=== PATIENT | female | born 1960 | race Caucasian/White ===

== ENCOUNTER 2018-02-19 14:08 | Inpatient (IN) ==
[2018-02-19] MEDS ORDERED: Vancomycin 1,750 MG in 0.9 % Sodium Chloride 250 ML IVPB ONE (18:53)
[2018-02-19] MEDS ORDERED: Clindamycin 600 MG/50 ML 600 MG/50 ML IV.SOLN IVPB ONE (19:00)
[2018-02-19] MEDS ORDERED: *HR* FentaNYL (PF) 100 MCG/2 ML VIAL IVP ONE (19:55)
[2018-02-19] MEDS ORDERED: Ondansetron 4 MG/2 ML VIAL IVP PRN (19:55)
[2018-02-19] MEDS: 0.9 % Sodium Chloride 1,000 ML IVC SCH ×2 (20:01→21:57)
--- NOTE | 2018-02-19 20:07 | Emergency Department Note ---
Disposition Clinical Impression: Generalized weakness, Frequent falls, Cellulitis of left anterior lower leg Disposition: Still a Patient Condition: Fair Referrals: Bob Roberto MD [Primary Care Provider] - Time of Disposition: 21:17 Fall HPI - General Chief Complaint: ED Fall Stated Complaint: Fall Time Seen by Provider: 02/19/18 18:26 Source: patient Nursing Notes Reviewed: Yes Vital Signs Reviewed: Yes - History of Present Illness HPI Narrative: Patient is a 57-year-old female who complains of a ground-level fall that happened early today at 0200 hrs. Patient states that while she was shaving her legs was sitting on the side of the tub she fell into the top. Patient states she was unable to move for 9 hours. Patient states she was rescued by her nephew who drove her to the hospital because of weakness. Patient complains of pain to the left lower extremity below the knee which also has an area of possible cellulitis. This is noticed by the patient's sister who is at bedside. Patient's sister states that she had fallen on 2 other occasions over the past 3 days, and she is concerned that something is very wrong because she is also getting progressively weak. Patient complains of dysuria for the past 2 weeks of burning in urination and noticed blood on her underwear. Patient denies any rectal bleeding and had a normal bowel movement 1 day ago. Patient has history of diabetes, with peripheral neuropathy in both lower extremities. She denies any fevers chills. When asked about her falls on 2 other occasions patient says that her legs suddenly gave way underneath her. - Related Data Home Medications Medication Instructions Recorded Confirmed Aspirin [Adult Low Dose Aspirin EC] 81 mg PO DAILY 01/11/16 02/19/18 Atorvastatin Calcium [Lipitor] 20 mg PO DAILY 01/11/16 02/19/18 FLUoxetine HCl [PROzac] 20 mg PO DAILY 01/11/16 02/19/18 Gabapentin [Neurontin] 300 mg PO BID 01/11/16 02/19/18 Insulin ASPART [Novolog] 15 unit SQ TID 01/11/16 02/19/18 Insulin Glargine,Hum.rec.anlog 36 unit SQ QAM 01/11/16 02/19/18 [Lantus Solostar] Lisinopril [Zestril] 20 mg PO DAILY 01/11/16 02/19/18 Metformin HCl [Glucophage] 1,000 mg PO BID 01/11/16 02/19/18 Oxybutynin Chloride [Ditropan Xl] 20 mg PO HS 01/11/16 02/19/18 Furosemide [Lasix] 20 mg PO DAILY 02/19/18 02/19/18 Gabapentin [Neurontin] 600 mg PO HS 02/19/18 02/19/18 Iron Ps Cmplx/Vit B12/FA 1 cap PO DAILY 02/19/18 02/19/18 [Poly-Iron 150 Forte Capsule] Vit/Iron Fumarate/FA 1 tab PO DAILY 02/19/18 02/19/18 [ Tablet] Previous Rx's Medication Instructions Recorded Meloxicam 7.5 mg PO DAILY #20 tablet 03/26/17 Allergies Allergy/AdvReac Type Severity Reaction Status Date / Time tetanus immune globulin Allergy Hives Verified 02/19/18 19:38 liraglutide [From Victoza] AdvReac Severe Nausea Verified 02/19/18 19:38 All systems ED: reviewed and negative except as stated. Review of Systems: As Per HPI Constitutional: Reports: weakness. Denies: fever, chills Cardiovascular: Denies: chest pain Respiratory: Reports: dyspnea. Denies: cough Gastrointestinal: Reports: nausea. Denies: abdominal pain, vomiting, diarrhea Genitourinary: Reports: urgency, dysuria Neurological: Reports: weakness. Denies: headache Fall PMH - Past Medical History Medical history: Reports: COPD, diabetes, hyperlipidemia Surgical history: Reports: cholecystectomy, orthopedic, other Psychiatric history: Reports: no psych history - Social History Smoking Status: Current every day smoker Alcohol use: Reports: none Drug use: Reports: none Physical Exam Vital Signs Temperature 98.0 F 02/19/18 14:14 Pulse Rate 80 02/19/18 14:14 Respiratory Rate 18 02/19/18 14:14 Blood Pressure 93/61 02/19/18 14:14 O2 Sat by Pulse Oximetry 97 02/19/18 14:14 Temperature 98.0 F 02/19/18 14:24 Pulse Rate 84 02/19/18 19:01 Respiratory Rate 18 02/19/18 14:24 Blood Pressure 157/78 02/19/18 19:01 O2 Sat by Pulse Oximetry 98 02/19/18 19:52 Oxygen Delivery Oxygen Delivery Room Air CONSTITUTIONAL: [id number]; well-nourished; A&O X 3, in no apparent distress. GCS of 15. Patient is morbidly obese with a BMI of 42. Patient weighs 111 kg vital signs show patient is mildly hypotensive at 93/61. patient is afebrile, pulse rate 80, respirations 18, 97% O2 sat on room air. Patient is nontoxic-appearing. HEAD: Normocephalic; atraumatic EYES: PERRL, no scleral icterus NOSE: The nose is normal in appearance without rhinorrhea NECK: No JVD or distended neck veins RESP: Normal chest excursion with respiration; breath sounds clear and equal bilaterally; no wheezes, rhonchi, or rales CARD: Regular rhythm, without murmurs, rub or gallop ABD: Non-distended; non-tender, soft, without rigidity, rebound or guarding,no pulsatile mass CHEST: No pain with palpation SKIN: Normal for age and race; warm and dry without diaphoresis ; no apparent lesions EXTREMITIES: Pulses are 2 plus and equal times 4 extremities, no peripheral edema or calf muscle pain, large hematoma just distal to the knee left lower extremity with area of erythema cellulitic only on the left lower extremity. Warm to the touch compared to the right lower extremity. Distal pulses intact. - General Limitations: no limitations General appearance: alert, in no apparent distress Course - Reevaluation(s) Reevaluation #1: Patient's currently doing well. Patient's labs have hemolyzed and needed to be redrawn. Lab has been notified to come and redraw them Time: 20:57 Vital Signs Temperature 98.0 F 02/19/18 14:14 Pulse Rate 80 02/19/18 14:14 Respiratory Rate 18 02/19/18 14:14 Blood Pressure 93/61 02/19/18 14:14 O2 Sat by Pulse Oximetry 97 02/19/18 14:14 Temperature 98.0 F 02/19/18 14:24 Pulse Rate 84 02/19/18 19:01 Respiratory Rate 18 02/19/18 14:24 Blood Pressure 157/78 02/19/18 19:01 O2 Sat by Pulse Oximetry 98 02/19/18 19:52 Oxygen Delivery Oxygen Delivery Room Air Fall - MDM Narrative Medical decision making narrative: 57-year-old female with falls and progressive generalized weakness presented after being stuck in her top for 9 hours. Patient has possible source of infection cellulitis in the left lower extremity, and has concerns for sepsis. Patient also been having dysuria, possibly has a UTI which may be attributing to her weakness. Patient is currently not SIRS positive, but due to her progressive weakness and falls she is not safe to go home and the plan is for her to be admitted at the end of her evaluation. Cultures were taken and Antibiotics have been started to include clindamycin and vancomycin for her cellulitis. We are currently awaiting lab results, but samples were hemolyzed and had to be redrawn leading to a delay in care. The CBC has resulted and no elevation of white count. X-ray of the tib-fib shows subcutaneous edema without signs of gas within tissues. The rest of patient's imaging was negative for abnormalities. My shift is over. I have updated the night team consistent of Dr. العراقي resident and Dr. Reyes ED attending of patient's current condition and disposition after workup was complete. They understand and agreed to treatment and plan and decision to admit. They have assumed care of the patient. - Lab Data Lab Results 02/19/18 Range/Units 16:14 POC Glucose 100 H (70-99) mg/dL - Radiology Data Radiology results reviewed: Yes I reviewed the patient's radiology results. Chest X-Ray 02/19/18 18:36 IMPRESSION: No acute abnormality detected within the chest. D/ / Lawrence Aguirre MD / Lawrence Aguirre MD Interpreting Provider: Lawrence Aguirre MD Cervical Spine CT 02/19/18 18:52 IMPRESSION: No acute abnormality of the cervical spine. D/ / Keron Dumont MD / Keron Dumont MD Interpreting Provider: Keron Dumotn MD Head CT 02/19/18 18:52 IMPRESSION: No acute intracranial abnormality. D/ / Keron Dumont MD / Keron Dumont MD Interpreting Provider: Keron Dumont MD Tibia/Fibula X-Ray 02/19/18 18:59 IMPRESSION: 1. Nonspecific subcutaneous edema throughout the soft tissues. 2. No acute osseous abnormality. D/ / Fly Mayorga MD / Fly Mayorga MD Interpreting Provider: Fly Mayorga MD Yamilet - Yamilet Situation: Demographics, MOA Background: Presenting Complaint, Relevant PMH, Meds, & Allergies Assessment: Vital Signs, Course and respsone to treatment, Exam Concerns, Patient/Family Expectation, Pertinant Lab Results, Outstanding Labs Recommendation: Barrier(s) to disposition, Recommendation based on pending studies, treatments, or consults Yamilet Report Given to: Dr. Lenny Woodard Repor Time: 20:50
--- NOTE | 2018-02-19 20:07 | Emergency Department Note ---
Disposition Clinical Impression: Generalized weakness Disposition: Still a Patient Referrals: Bob Roberto MD [Primary Care Provider] - Forms: ED Satisfaction Letter General Adult HPI - General Chief complaint: ED Fall Stated complaint: Fall Time Seen by Provider: 02/19/18 18:26 Source: patient Limitations: no limitations - History of Present Illness Pain Scale: 6 - Related Data Home Medications Medication Instructions Recorded Confirmed Aspirin [Adult Low Dose Aspirin EC] 81 mg PO DAILY 01/11/16 02/19/18 Atorvastatin Calcium [Lipitor] 20 mg PO DAILY 01/11/16 02/19/18 FLUoxetine HCl [PROzac] 20 mg PO DAILY 01/11/16 02/19/18 Gabapentin [Neurontin] 300 mg PO BID 01/11/16 02/19/18 Insulin ASPART [Novolog] 15 unit SQ TID 01/11/16 02/19/18 Insulin Glargine,Hum.rec.anlog 36 unit SQ QAM 01/11/16 02/19/18 [Lantus Solostar] Lisinopril [Zestril] 20 mg PO DAILY 01/11/16 02/19/18 Metformin HCl [Glucophage] 1,000 mg PO BID 01/11/16 02/19/18 Oxybutynin Chloride [Ditropan Xl] 20 mg PO HS 01/11/16 02/19/18 Furosemide [Lasix] 20 mg PO DAILY 02/19/18 02/19/18 Gabapentin [Neurontin] 600 mg PO HS 02/19/18 02/19/18 Iron Ps Cmplx/Vit B12/FA 1 cap PO DAILY 02/19/18 02/19/18 [Poly-Iron 150 Forte Capsule] Vit/Iron Fumarate/FA 1 tab PO DAILY 02/19/18 02/19/18 [ Tablet] Previous Rx's Medication Instructions Recorded Meloxicam 7.5 mg PO DAILY #20 tablet 03/26/17 Allergies Allergy/AdvReac Type Severity Reaction Status Date / Time tetanus immune globulin Allergy Hives Verified 02/19/18 19:38 liraglutide [From Victoza] AdvReac Severe Nausea Verified 02/19/18 19:38 Past Medical History - Past Medical History Medical history: Reports: COPD, diabetes, hyperlipidemia Surgical history: Reports: cholecystectomy, orthopedic, other Psychiatric history: Reports: no psych history - Social History Smoking Status: Current every day smoker Smokeless Tobacco Status: No Alcohol use: Reports: none Drug use: Reports: none Physical Exam - General Limitations: no limitations General appearance: alert, in no apparent distress Course Vital Signs Temperature 98.0 F 02/19/18 14:14 Pulse Rate 80 02/19/18 14:14 Respiratory Rate 18 02/19/18 14:14 Blood Pressure 93/61 02/19/18 14:14 O2 Sat by Pulse Oximetry 97 02/19/18 14:14 Temperature 98.0 F 02/19/18 14:24 Pulse Rate 84 02/19/18 19:01 Respiratory Rate 18 02/19/18 14:24 Blood Pressure 157/78 02/19/18 19:01 O2 Sat by Pulse Oximetry 98 02/19/18 19:52 Oxygen Delivery Oxygen Delivery Room Air Medical Decision Making - Lab Data Result diagrams: 02/19/18 19:53 02/19/18 19:53 Lab Results 02/19/18 02/19/18 02/19/18 Range/Units 16:14 19:53 19:53 WBC 9.4 (4.3-11.1) K/mcL RBC 5.32 H (3.82-4.97) M/mcL Hgb 13.8 (11.5-15.4) g/dL Hct 42.5 (35.3-44.9) % MCV 79.9 L (83.0-100.0) fL MCH 25.9 L (28.0-33.3) pg MCHC 32.5 (31.6-35.5) g/dL RDW 15.9 H (11.5-14.5) % Plt Count 191 (140-400) K/mcL MPV 12.5 H (9.4-12.4) fL Immature Gran % 0.4 (0-4) % Seg Neutrophils % 67.6 % Lymphocytes % 21.6 % Monocytes % 8.3 % Eosinophils % 1.1 % Basophils % 1.0 % Neutrophils # 6.4 (1.6-8.9) K/mcL Lymphocytes # 2.0 (0.6-4.6) K/mcL Monocytes # 0.8 (0.0-1.3) K/mcL Eosinophils # 0.1 (0.0-0.6) K/mcL Basophils # 0.1 (0.0-0.2) K/mcL Sodium Cancelled Potassium Cancelled Chloride Cancelled Carbon Dioxide Cancelled BUN Cancelled Creatinine Cancelled Est GFR ( Amer) Cancelled Est GFR (Non-Af Amer) Cancelled BUN/Creatinine Ratio Cancelled Glucose Cancelled POC Glucose 100 H (70-99) mg/dL Calculated Osmolality Cancelled Lactic Acid (0.5-2.2) mmol/L Calcium Cancelled Phosphorus Cancelled Magnesium Cancelled Total Bilirubin Cancelled Direct Bilirubin Cancelled Indirect Bilirubin Cancelled AST Cancelled ALT Cancelled Alkaline Phosphatase Cancelled Creatine Kinase 69 (30-223) Units/L Troponin I < 0.03 (< 0.04) ng/mL Serum Total Protein Cancelled Albumin Cancelled Globulin Cancelled Albumin/Globulin Ratio Cancelled Specimen Rejected 02/19/18 02/19/18 Range/Units 19:53 19:53 WBC (4.3-11.1) K/mcL RBC (3.82-4.97) M/mcL Hgb (11.5-15.4) g/dL Hct (35.3-44.9) % MCV (83.0-100.0) fL MCH (28.0-33.3) pg MCHC (31.6-35.5) g/dL RDW (11.5-14.5) % Plt Count (140-400) K/mcL MPV (9.4-12.4) fL Immature Gran % (0-4) % Seg Neutrophils % % Lymphocytes % % Monocytes % % Eosinophils % % Basophils % % Neutrophils # (1.6-8.9) K/mcL Lymphocytes # (0.6-4.6) K/mcL Monocytes # (0.0-1.3) K/mcL Eosinophils # (0.0-0.6) K/mcL Basophils # (0.0-0.2) K/mcL Sodium Potassium Chloride Carbon Dioxide BUN Creatinine Est GFR ( Amer) Est GFR (Non-Af Amer) BUN/Creatinine Ratio Glucose POC Glucose (70-99) mg/dL Calculated Osmolality Lactic Acid 0.8 (0.5-2.2) mmol/L Calcium Phosphorus Magnesium Total Bilirubin Direct Bilirubin Indirect Bilirubin AST ALT Alkaline Phosphatase Creatine Kinase (30-223) Units/L Troponin I (< 0.04) ng/mL Serum Total Protein Albumin Globulin Albumin/Globulin Ratio Specimen Rejected Hemolyzed Attestation Statement - Attestation Attestation: I examined this patient and my medical decision-making was reviewed with the Resident Physician. I agree with the documented findings, disposition and treatment plan as described except to the extent set forth below. Patient presents to the ED with a chief complaint of a fall. Patient states she was sitting on the edge of a bathtub and fell into it. She states she was unable to get out for several hours. She states it was not due to pain but due to problems with her legs. She states they have been shaky and they are not doing what she tells him to do. Denies neck back or head pain. Denies loss of consciousness. Patient is in no acute distress on my evaluation. She is moving everything. She has symmetric edema to the legs. There is ecchymosis on the left. She has sensation intact bilaterally that is at baseline she states. Plan. Labs imaging. Patient is unsafe for discharge to home. She will be admitted. Patient returns labs and UA still pending. Will be signed out to night guard.
[2018-02-19 20:12] LABS: Basophils # 0.1 K/mcL (0.0-0.2); Eosinophils # 0.1 K/mcL (0.0-0.6); Eosinophils % 1.1 %; Hematocrit 42.5 % (35.3-44.9); Hemoglobin 13.8 g/dL (11.5-15.4); Immature Granulocytes % 0.4 % (0-4); Lymphocytes % 21.6 %; Mean Corpuscular HGB Conc 32.5 g/dL (31.6-35.5); Mean Corpuscular Hemoglobin 25.9 pg (28.0-33.3); Mean Corpuscular Volume 79.9 fL (83.0-100.0); Mean Platelet Volume 12.5 fL (9.4-12.4); Monocytes # 0.8 K/mcL (0.0-1.3); Monocytes % 8.3 %; Platelet Count 191 K/mcL (140-400); Red Blood Count 5.32 M/mcL (3.82-4.97); Red Cell Distribution Width 15.9 % (11.5-14.5); Segmented Neutrophils % 67.6 %
[2018-02-19 20:30] LABS: Neutrophils # 6.4 K/mcL (1.6-8.9)
[2018-02-19 20:31] LABS: Troponin I < 0.03 ng/mL (< 0.04)
[2018-02-19 20:37] LABS: Creatine Kinase 69 Units/L (30-223)
--- NOTE | 2018-02-19 20:57 | Emergency Department Note ---
Disposition Clinical Impression: Generalized weakness, Frequent falls, Cellulitis of left anterior lower leg Disposition: Admitted As Inpatient Condition: Fair Time of Disposition: 21:46 Fall HPI - General Chief Complaint: ED Fall Stated Complaint: Fall Time Seen by Provider: 02/19/18 18:26 Source: patient Mode of arrival: ambulatory Limitations: no limitations Nursing Notes Reviewed: Yes Vital Signs Reviewed: Yes - Related Data Home Medications Medication Instructions Recorded Confirmed Aspirin [Adult Low Dose Aspirin EC] 81 mg PO DAILY 01/11/16 02/19/18 Atorvastatin Calcium [Lipitor] 20 mg PO DAILY 01/11/16 02/19/18 FLUoxetine HCl [PROzac] 20 mg PO DAILY 01/11/16 02/19/18 Gabapentin [Neurontin] 300 mg PO BID 01/11/16 02/19/18 Insulin ASPART [Novolog] 15 unit SQ TID 01/11/16 02/19/18 Insulin Glargine,Hum.rec.anlog 36 unit SQ QAM 01/11/16 02/19/18 [Lantus Solostar] Lisinopril [Zestril] 20 mg PO DAILY 01/11/16 02/19/18 Metformin HCl [Glucophage] 1,000 mg PO BID 01/11/16 02/19/18 Oxybutynin Chloride [Ditropan Xl] 20 mg PO HS 01/11/16 02/19/18 Furosemide [Lasix] 20 mg PO DAILY 02/19/18 02/19/18 Gabapentin [Neurontin] 600 mg PO HS 02/19/18 02/19/18 Iron Ps Cmplx/Vit B12/FA 1 cap PO DAILY 02/19/18 02/19/18 [Poly-Iron 150 Forte Capsule] Vit/Iron Fumarate/FA 1 tab PO DAILY 02/19/18 02/19/18 [ Tablet] Previous Rx's Medication Instructions Recorded Meloxicam 7.5 mg PO DAILY #20 tablet 03/26/17 Allergies Allergy/AdvReac Type Severity Reaction Status Date / Time tetanus immune globulin Allergy Hives Verified 02/19/18 19:38 liraglutide [From Victoza] AdvReac Severe Nausea Verified 02/19/18 19:38 Constitutional: Reports: weakness. Denies: fever, chills Cardiovascular: Denies: chest pain Respiratory: Reports: dyspnea. Denies: cough Gastrointestinal: Reports: nausea. Denies: abdominal pain, vomiting, diarrhea Genitourinary: Reports: urgency, dysuria Neurological: Reports: weakness. Denies: headache Fall PMH - Past Medical History Medical history: Reports: COPD, diabetes, hyperlipidemia Surgical history: Reports: cholecystectomy, orthopedic, other Psychiatric history: Reports: no psych history - Social History Smoking Status: Current every day smoker Alcohol use: Reports: none Drug use: Reports: none Physical Exam - General Limitations: no limitations General appearance: alert, in no apparent distress Course Course Narrative: Patient was a signout from previous physician team, Dr. Tello and Dr. Fonseca. Please see their notes for any additional details. In summary, patient is a 57- year-old female who has been generally weak for the past week or 2, has had frequent falls. She also had left lower summary cellulitis. She had a fall this morning in her bathtub, injured her left lower leg and has significant redness and bruising. She also states that her cellulitis is worse. Physical exam does show erythema from mid calf down the ankle. No calf tenderness. She has has significant bruising over the lateral aspect of the left lower extremity. Otherwise, heart regular rate and rhythm, lungs clear to auscultation, abdomen soft and nontender. Patient had x-ray imaging of the left leg that was negative for fracture. She also had CT of the head, CT cervical spine, chest x-ray that were negative as well. CK level was drawn and was negative. Currently admitting the patient for left lower summary cellulitis. Patient was already given clindamycin and vancomycin. BMP was hemolyzed and is still pending. I talked with the hospitalist has accepted the patient and will follow up on BMP results. Vital Signs Temperature 98.0 F 02/19/18 14:14 Pulse Rate 80 02/19/18 14:14 Respiratory Rate 18 02/19/18 14:14 Blood Pressure 93/61 02/19/18 14:14 O2 Sat by Pulse Oximetry 97 02/19/18 14:14 Temperature 97.5 F L 02/19/18 23:12 Pulse Rate 86 02/19/18 23:12 Respiratory Rate 15 02/19/18 23:12 Blood Pressure 139/80 02/19/18 23:12 O2 Sat by Pulse Oximetry 97 02/19/18 23:12 Oxygen Delivery Oxygen Delivery Room Air Fall - [facility] Narrative Medical decision making narrative: Patient was a signout from previous physician team, Dr. Tello and Dr. Fonseca. Please see their notes for any additional details. In summary, patient is a 57- year-old female who has been generally weak for the past week or 2, has had frequent falls. She also had left lower summary cellulitis. She had a fall this morning in her bathtub, injured her left lower leg and has significant redness and bruising. She also states that her cellulitis is worse. Physical exam does show erythema from mid calf down the ankle. No calf tenderness. She has has significant bruising over the lateral aspect of the left lower extremity. Otherwise, heart regular rate and rhythm, lungs clear to auscultation, abdomen soft and nontender. Patient had x-ray imaging of the left leg that was negative for fracture. She also had CT of the head, CT cervical spine, chest x-ray that were negative as well. CK level was drawn and was negative. Currently admitting the patient for left lower summary cellulitis. Patient was already given clindamycin and vancomycin. BMP was hemolyzed and is still pending. I talked with the hospitalist has accepted the patient and will follow up on BMP results. - Medical Records Medical records reviewed: Yes I reviewed the patient's medical records. - Lab Data Lab results reviewed: Yes I reviewed the patient's lab results. Result diagrams: 02/19/18 19:53 02/19/18 20:48 Lab Results 02/19/18 02/19/18 02/19/18 Range/Units 16:14 19:53 19:53 WBC 9.4 (4.3-11.1) K/mcL RBC 5.32 H (3.82-4.97) M/mcL Hgb 13.8 (11.5-15.4) g/dL Hct 42.5 (35.3-44.9) % MCV 79.9 L (83.0-100.0) fL MCH 25.9 L (28.0-33.3) pg MCHC 32.5 (31.6-35.5) g/dL RDW 15.9 H (11.5-14.5) % Plt Count 191 (140-400) K/mcL MPV 12.5 H (9.4-12.4) fL Immature Gran % 0.4 (0-4) % Seg Neutrophils % 67.6 % Lymphocytes % 21.6 % Monocytes % 8.3 % Eosinophils % 1.1 % Basophils % 1.0 % Neutrophils # 6.4 (1.6-8.9) K/mcL Lymphocytes # 2.0 (0.6-4.6) K/mcL Monocytes # 0.8 (0.0-1.3) K/mcL Eosinophils # 0.1 (0.0-0.6) K/mcL Basophils # 0.1 (0.0-0.2) K/mcL Sodium Cancelled Potassium Cancelled Chloride Cancelled Carbon Dioxide Cancelled BUN Cancelled Creatinine Cancelled Est GFR ( Amer) Cancelled Est GFR (Non-Af Amer) Cancelled BUN/Creatinine Ratio Cancelled Glucose Cancelled POC Glucose 100 H (70-99) mg/dL Calculated Osmolality Cancelled Lactic Acid (0.5-2.2) mmol/L Calcium Cancelled Phosphorus Cancelled Magnesium Cancelled Total Bilirubin Cancelled Direct Bilirubin Cancelled Indirect Bilirubin Cancelled AST Cancelled ALT Cancelled Alkaline Phosphatase Cancelled Creatine Kinase 69 (30-223) Units/L Troponin I < 0.03 (< 0.04) ng/mL Serum Total Protein Cancelled Albumin Cancelled Globulin Cancelled Albumin/Globulin Ratio Cancelled Urine Color (Yellow) Urine Clarity (Clear) Urine pH (5.0-8.0) pH Units Ur Specific [place] (1.010-1.025) Urine Protein (Neg-Trace) mg/dL Urine Glucose (UA) (Normal) mg/dL Urine Ketones (Negative) mg/dL Urine Blood (Negative) Urine Nitrite (Negative) Urine Bilirubin (Negative) Urine Urobilinogen (Normal) mg/dL Ur Leukocyte Esterase (Negative) Urine Microscopic RBC (0-3) per hpf Urine Microscopic WBC (0-3) per hpf Ur Squamous Epith Cells (None-Few) per lpf Urine Bacteria (None-Few) per hpf Hyaline Casts (None-Few) per lpf Ur Culture Indicated? (NO) Specimen Rejected 02/19/18 02/19/18 02/19/18 Range/Units 19:53 19:53 20:45 WBC (4.3-11.1) K/mcL RBC (3.82-4.97) M/mcL Hgb (11.5-15.4) g/dL Hct (35.3-44.9) % MCV (83.0-100.0) fL MCH (28.0-33.3) pg MCHC (31.6-35.5) g/dL RDW (11.5-14.5) % Plt Count (140-400) K/mcL MPV (9.4-12.4) fL Immature Gran % (0-4) % Seg Neutrophils % % Lymphocytes % % Monocytes % % Eosinophils % % Basophils % % Neutrophils # (1.6-8.9) K/mcL Lymphocytes # (0.6-4.6) K/mcL Monocytes # (0.0-1.3) K/mcL Eosinophils # (0.0-0.6) K/mcL Basophils # (0.0-0.2) K/mcL Sodium Potassium Chloride Carbon Dioxide BUN Creatinine Est GFR ( Amer) Est GFR (Non-Af Amer) BUN/Creatinine Ratio Glucose POC Glucose (70-99) mg/dL Calculated Osmolality Lactic Acid 0.8 (0.5-2.2) mmol/L Calcium Phosphorus Magnesium Total Bilirubin Direct Bilirubin Indirect Bilirubin AST ALT Alkaline Phosphatase Creatine Kinase (30-223) Units/L Troponin I (< 0.04) ng/mL Serum Total Protein Albumin Globulin Albumin/Globulin Ratio Urine Color Yellow (Yellow) Urine Clarity Clear (Clear) Urine pH 6.0 (5.0-8.0) pH Units Ur Specific [place] 1.017 (1.010-1.025) Urine Protein 30 H (Neg-Trace) mg/dL Urine Glucose (UA) Normal (Normal) mg/dL Urine Ketones Negative (Negative) mg/dL Urine Blood Negative (Negative) Urine Nitrite Negative (Negative) Urine Bilirubin Negative (Negative) Urine Urobilinogen Normal (Normal) mg/dL Ur Leukocyte Esterase Trace H (Negative) Urine Microscopic RBC 0-3 (0-3) per hpf Urine Microscopic WBC 0-3 (0-3) per hpf Ur Squamous Epith Cells Moderate H (None-Few) per lpf Urine Bacteria None Seen (None-Few) per hpf Hyaline Casts None Seen (None-Few) per lpf Ur Culture Indicated? YES A (NO) Specimen Rejected Hemolyzed 02/19/18 Range/Units 20:48 WBC (4.3-11.1) K/mcL RBC (3.82-4.97) M/mcL Hgb (11.5-15.4) g/dL Hct (35.3-44.9) % MCV (83.0-100.0) fL MCH (28.0-33.3) pg MCHC (31.6-35.5) g/dL RDW (11.5-14.5) % Plt Count (140-400) K/mcL MPV (9.4-12.4) fL Immature Gran % (0-4) % Seg Neutrophils % % Lymphocytes % % Monocytes % % Eosinophils % % Basophils % % Neutrophils # (1.6-8.9) K/mcL Lymphocytes # (0.6-4.6) K/mcL Monocytes # (0.0-1.3) K/mcL Eosinophils # (0.0-0.6) K/mcL Basophils # (0.0-0.2) K/mcL Sodium 126 L Potassium 5.2 H Chloride 101 Carbon Dioxide 19 L BUN 16 Creatinine 1.10 Est GFR ( Amer) > 60 Est GFR (Non-Af Amer) 51 L BUN/Creatinine Ratio 15 Glucose 93 POC Glucose (70-99) mg/dL Calculated Osmolality 263 L Lactic Acid (0.5-2.2) mmol/L Calcium 8.7 Phosphorus 3.5 Magnesium 1.7 Total Bilirubin 0.5 Direct Bilirubin 0.2 Indirect Bilirubin 0.3 AST 18 ALT 15 Alkaline Phosphatase 107 H Creatine Kinase (30-223) Units/L Troponin I (< 0.04) ng/mL Serum Total Protein 6.9 Albumin 3.8 Globulin 3.1 Albumin/Globulin Ratio 1.2 Urine Color (Yellow) Urine Clarity (Clear) Urine pH (5.0-8.0) pH Units Ur Specific [place] (1.010-1.025) Urine Protein (Neg-Trace) mg/dL Urine Glucose (UA) (Normal) mg/dL Urine Ketones (Negative) mg/dL Urine Blood (Negative) Urine Nitrite (Negative) Urine Bilirubin (Negative) Urine Urobilinogen (Normal) mg/dL Ur Leukocyte Esterase (Negative) Urine Microscopic RBC (0-3) per hpf Urine Microscopic WBC (0-3) per hpf Ur Squamous Epith Cells (None-Few) per lpf Urine Bacteria (None-Few) per hpf Hyaline Casts (None-Few) per lpf Ur Culture Indicated? (NO) Specimen Rejected - Radiology Data Radiology results reviewed: Yes I reviewed the patient's radiology results. S.B.A.R. - S.B.A.R. Situation: Demographics, MOA Background: Presenting Complaint, Relevant PMH, Meds, & Allergies Assessment: Vital Signs, Course and respsone to treatment, Exam Concerns, Patient/Family Expectation, Pertinant Lab Results Recommendation: Barrier(s) to disposition, Recommendation based on pending studies, treatments, or consults S.B.A.R. Report Given to: Dr. Zavala, pending BMP to f/u on S.B.A.R. Repor Time: 21:46 Attestation Statement - Attestation Attestation: Dr. Reyes note: Patient was seen in conjunction with resident Dr. العراقي. Please see his charting for complete documentation. I spent [id number] time with the patient and agree with patient's treatment and disposition. Pt admitted in stablized/improved condition; results reviewed
[2018-02-19 20:58] LABS: Bilirubin,Urine Negative (Negative); Blood,Urine Negative (Negative); Clarity,Urine Clear (Clear); Color,Urine Yellow (Yellow); Glucose,Urine (UA) Normal (Normal); Ketones,Urine Negative (Negative); Leukocyte Esterase,Urine Trace (Negative); Nitrite,Urine Negative (Negative); Protein,Urine 30 mg/dL (Neg-Trace); Specific Gravity,Urine 1.017 (1.010-1.025); Urobilinogen,Urine Normal (Normal)
[2018-02-19 21:02] LABS: Bacteria,Urine None Seen per hpf (None-Few); Hyaline Casts,Urine None Seen per lpf (None-Few); RBC,Urine 0-3 per hpf (0-3); Squamous Epithelial Cell,Urine Moderate per lpf (None-Few); WBC,Urine 0-3 per hpf (0-3)
[2018-02-19 21:40] LABS: BUN/Creatinine Ratio 15 (6-26); Blood Urea Nitrogen 16 mg/dL (6-20); Calcium 8.7 mg/dL (8.6-10.3); Carbon Dioxide 19 mEq/L (23-29); Chloride 101 mEq/L (98-107); Glucose 93 mg/dL (70-105); Magnesium 1.7 mg/dL (1.6-2.6); Osmolality,Calculated 263 (280-300); Potassium 5.2 mEq/L (3.5-5.1); Sodium 126 mEq/L (136-145); eGFR For African Americans > 60 (> 60); eGFR For Non-African Americans 51 (> 60)
[2018-02-19 21:41] LABS: Alanine Aminotransferase 15 Units/L (7-52); Albumin 3.8 g/dL (3.5-5.7); Albumin/Globulin Ratio 1.2 (1.1-2.2); Alkaline Phosphatase 107 Units/L (34-104); Aspartate Amino Transferase 18 Units/L (13-39); Bilirubin,Direct 0.2 mg/dL (0.0-0.2); Bilirubin,Indirect 0.3 mg/dL (0.0-1.2); Bilirubin,Total 0.5 mg/dL (0.3-1.0); Globulin 3.1 g/dL (2.4-3.5); Total Protein 6.9 g/dL (6.4-8.9)
[2018-02-19 22:01] LABS: Phosphorous 3.5 mg/dL (2.7-4.5)
--- NOTE | 2018-02-19 22:41 | Internal Med History&Physical ---
Date of Encounter: 02/19/18 Time of Encounter: 22:37 Assessment and Plan (1) COPD (chronic obstructive pulmonary disease) Current visit: Yes Status: Chronic History of COPD no active wheezing Qualifiers: COPD type: emphysema Emphysema type: unspecified Qualified Code(s): J43.9 - Emphysema, unspecified (2) Morbid obesity Current visit: Yes Status: Chronic (3) HTN (hypertension) Current visit: Yes Status: Chronic Chronic and well controlled Qualifiers: Hypertension type: essential hypertension Qualified Code(s): I10 - Essential (primary) hypertension (4) Diabetes 1.5, managed as type 2 Current visit: Yes Status: Chronic Chronic resume home medication and place on sliding scale (5) Cellulitis of left anterior lower leg Current visit: Yes Status: Acute Cellulitis of left leg started on clindamycin IV (6) Frequent falls Current visit: Yes Status: Acute Recurrent fall probably due to generalized weakness (7) Generalized weakness Current visit: Yes Status: Acute Generalized weakness nonspecific Internal Medicine - H&P: HPI Chief complaint: frequent falls, left leg cellulitis Admitted From: Emergency Dept Plans for Post Hospital Care: Home History of present illness: Ms. Rincon is a 57 year old female Patient with history of morbid obesity, diabetes, high cholesterol, hypertension , COPD, and smoking history patient has had recurrent falls for the last 3 days and generalized weakness she was at edge of the bathtub shaving her leg and then she fell into the top was unable to get out of the tub she nwas rescued by her nephew and brought to the emergency room. Denies any syncope no loss of consciousness patient also has had dysuria for a few days all imaging were negative for any fracture but noted that she has a leg cellulitis she thinks is probably from shaving her legs Past Med Surg Social Fam HX - Past Medical History Medical history: COPD, diabetes, hyperlipidemia Psychiatric history: no psych history - Past Surgical History Surgical History: cholecystectomy, orthopedic, other - Social History Smoking Status: Current every day smoker Smokeless Tobacco Status: No Alcohol use: none Drug use: none Internal Medicine - H&P: Meds Aspirin [Adult Low Dose Aspirin EC] 81 mg PO DAILY 01/11/16 [History] Atorvastatin Calcium [Lipitor] 20 mg PO DAILY 01/11/16 [History] FLUoxetine HCl [PROzac] 20 mg PO DAILY 01/11/16 [History] Gabapentin [Neurontin] 300 mg PO BID 01/11/16 [History] Insulin ASPART [Novolog] 15 unit SQ TID 01/11/16 [History] Insulin Glargine,Hum.rec.anlog [Lantus Solostar] 36 unit SQ QAM 01/11/16 [ History] Lisinopril [Zestril] 20 mg PO DAILY 01/11/16 [History] Metformin HCl [Glucophage] 1,000 mg PO BID 01/11/16 [History] Oxybutynin Chloride [Ditropan Xl] 20 mg PO HS 01/11/16 [History] Meloxicam 7.5 mg PO DAILY #20 tablet 03/26/17 [Rx] Furosemide [Lasix] 20 mg PO DAILY 02/19/18 [History] Gabapentin [Neurontin] 600 mg PO HS 02/19/18 [History] Iron Ps Cmplx/Vit B12/FA [Poly-Iron 150 Forte Capsule] 1 cap PO DAILY 02/19/18 [ History] Vit/Iron Fumarate/FA [ Tablet] 1 tab PO DAILY 02/19/18 [History ] 3 Allergy/AdvReac Type Severity Reaction Status Date / Time tetanus immune globulin Allergy Hives Verified 02/19/18 19:38 liraglutide [From Victoza] AdvReac Severe Nausea Verified 02/19/18 19:38 All Systems PM: A 10-system review of systems was performed and is negative for pertinent findings except as documented above in the HPI. - Constitutional Constitutional: falls, weakness - EENT Eyes: no change in vision, no discharge, no pain, no photophobia Ears: no ear discharge, no ear pain, no tinnitus Nose, mouth and throat: no dysphagia, no nasal discharge, no neck pain, no sore throat - Cardiovascular Cardiovascular ROS IM: no chest pain, no diaphoresis, no dyspnea, no lightheadedness, no palpitations, no syncope - Respiratory Respiratory: no cough, no dyspnea, no wheezing, no excessive phlegm production - Gastrointestinal Gastrointestinal: no abdominal pain, no diarrhea, no hematemesis, no hematochezia, no melena, no nausea, no vomiting - Genitourinary Genitourinary: no change in urinary stream, no dysuria, no flank pain, no hematuria - Musculoskeletal Musculoskeletal ROS IM: no numbness, no tingling - Integumentary Integumentary IM: no rash, no unusual bruising - Constitutional Vitals: Temp Pulse Resp BP Pulse Ox 98.0 F 89 16 123/63 96 02/19/18 14:24 02/19/18 21:19 02/19/18 21:19 02/19/18 21:19 02/19/18 21:19 General appearance: Present: mild distress, morbidly obese - Eye Eye exam: Present: PERRL, conjuntiva pink, sclera anicteric Pupils: Present: PERRL - Neck Neck exam general surgery: Present: supple, trachea midline. Absent: lymphadenopathy - Respiratory Respiratory exam: Present: CTAB. Absent: accessory muscle use, rales, rhonchi, wheezes - Cardiovascular Cardiovascular exam: Present: RRR, +S1, +S2. Absent: diastolic murmur, gallop, rubs, systolic murmur - Extremities Exam Extremities exam: Present: warm Internal Med - H&P Results - Labs CBC & Chem 7: 02/19/18 19:53 02/19/18 20:48
[2018-02-19] MEDS ORDERED: Acetaminophen 325 MG TABLET PO PRN (22:45)
[2018-02-19] MEDS ORDERED: traMADol 50 MG TABLET PO PRN (22:45)
[2018-02-19] MEDS ORDERED: Naloxone 0.4 MG/ML INJ IVP PRN (22:45)
[2018-02-19] MEDS ORDERED: Ipratropium/Albuterol Neb 3 ML IH PRN (22:50)
[2018-02-20] MEDS: 0.9 % Sodium Chloride 1,000 ML IVC SCH ×3 (01:21→17:26)
[2018-02-20] MEDS: Clindamycin 600 MG/50 ML 600 MG/50 ML IV.SOLN IVPB SCH ×2 (01:22→07:52)
[2018-02-20 03:43] LABS: Hematocrit 35.3 % (35.3-44.9); Hemoglobin 11.3 g/dL (11.5-15.4); Mean Corpuscular Hemoglobin 25.7 pg (28.0-33.3); Mean Corpuscular Volume 80.2 fL (83.0-100.0); Mean Platelet Volume 12.3 fL (9.4-12.4); Platelet Count 171 K/mcL (140-400); Red Cell Distribution Width 15.8 % (11.5-14.5)
[2018-02-20 04:08] LABS: Alanine Aminotransferase 11 Units/L (7-52); Albumin 2.9 g/dL (3.5-5.7); Albumin/Globulin Ratio 1.3 (1.1-2.2); Alkaline Phosphatase 80 Units/L (34-104); Aspartate Amino Transferase 11 Units/L (13-39); BUN/Creatinine Ratio 14 (6-26); Bilirubin,Total 0.4 mg/dL (0.3-1.0); Blood Urea Nitrogen 13 mg/dL (6-20); Calcium 7.5 mg/dL (8.6-10.3); Carbon Dioxide 21 mEq/L (23-29); Chloride 104 mEq/L (98-107); Cholesterol 78 mg/dL (< 200); Globulin 2.2 g/dL (2.4-3.5); Glucose 135 mg/dL (70-105); HDL Cholesterol 26 mg/dL (40-59); LDL Cholesterol,Calculated 38 mg/dL (0-99); Magnesium 1.5 mg/dL (1.6-2.6); Osmolality,Calculated 268 (280-300); Potassium 4.7 mEq/L (3.5-5.1); Sodium 128 mEq/L (136-145); Total Protein 5.1 g/dL (6.4-8.9); Triglycerides 69 mg/dL (< 150); eGFR For African Americans > 60 (> 60); eGFR For Non-African Americans > 60 (> 60)
[2018-02-20] MEDS: *HR* Enoxaparin 40 MG/0.4 ML SYRINGE SQ SCH (05:25)
[2018-02-20] MEDS: Prenatal Vit/FA 1 EACH TABLET PO SCH (07:52)
[2018-02-20] MEDS: Gabapentin 300 MG CAPSULE PO SCH ×3 (07:52→22:47)
[2018-02-20] MEDS: FLUoxetine 20 MG CAPSULE PO SCH (07:52)
[2018-02-20] MEDS: Aspirin Enteric Coated 81 MG Tablet PO SCH (07:52)
[2018-02-20] MEDS: Iron Polysaccharide Complex 150 MG CAPSULE PO SCH (07:52)
[2018-02-20] MEDS: Insulin DETEMIR 100 UNIT/ML X5UNITS SQ SCH (07:52)
[2018-02-20] MEDS: Lisinopril 20 MG TABLET PO SCH (07:53)
[2018-02-20] MEDS ORDERED: *HR* Metformin 500 MG TABLET PO SCH (08:00)
[2018-02-20] MEDS ORDERED: Gabapentin 300 MG CAPSULE PO SCH (09:00)
[2018-02-20] MEDS ORDERED: D5% in Water 1,000 ML IVC PRN (09:18)
[2018-02-20] MEDS ORDERED: Dextrose Gel 15 GM/37.5 ML TUBE PO PRN ×2 (09:18)
[2018-02-20] MEDS ORDERED: *HR* Dextrose 50 % in Water (Syg) 50 ML SYRINGE IVP PRN (09:18)
[2018-02-20] MEDS: Insulin LISPRO 300 UNITS/3 ML VIAL SQ SCH ×3 (11:12→21:29)
[2018-02-20] MEDS ORDERED: Magnesium Oxide 400 MG TABLET PO ONE (13:54)
--- NOTE | 2018-02-20 13:59 | Internal Med Progress Note ---
Date of Encounter: 02/20/18 Time of Encounter: 13:57 - Assessment and plan (1) MADONNA (acute kidney injury) Current Visit: Yes Status: Acute Assessment and plan: c/w IVF. improving. (2) Hyponatremia Current Visit: Yes Status: Acute Assessment and plan: likely hypovolemic. improving with IVF. will continue. (3) Frequent falls Current Visit: Yes Status: Acute Assessment and plan: Sounds like mechanical falls due to debility and low blood pressure possibly. We will ask PTOT see the patient. Check orthostatics. Check TSH. Check carotid ultrasound. Check a limited echo. (4) Cellulitis of left anterior lower leg Current Visit: Yes Status: Acute Assessment and plan: change abx to ceftriaxone. (5) Diabetes mellitus Current Visit: Yes Status: Acute Assessment and plan: continue current basal insulin. 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 Not in exacerbation. Qualifiers: COPD type: emphysema Emphysema type: unspecified Qualified Code(s): J43.9 - Emphysema, unspecified (7) HTN (hypertension) Current Visit: Yes Status: Chronic Assessment and plan: Hold antihypertensives given blood pressure being on the lower side. Qualifiers: Hypertension type: essential hypertension Qualified Code(s): I10 - Essential (primary) hypertension (8) Morbid obesity Current Visit: Yes Status: Chronic Assessment and plan: Counseled (9) DVT prophylaxis Current Visit: Yes Status: Acute Assessment and plan: Lovenox subcutaneous - Time Spent With Patient Total time spent is greater than 50% in coordination of care (as documented) at patient's floor/unit and/or counseling patient: - Subjective Interval history: Patient was seen and examined. No acute events. Admitted yesterday after what sounds like a mechanical fall. Found to have lower extremity cellulitis. She also has some signs of dehydration and low blood pressure which has improved somewhat with IV fluids. Afebrile. - Constitutional Vitals: Temp Pulse Resp BP Pulse Ox 97.9 F 73 16 92/59 98 02/20/18 10:53 02/20/18 10:53 02/20/18 10:53 02/20/18 10:53 02/20/18 10:53 General appearance: Present: mild distress, morbidly obese Exam: GEN: NAD CVS: RRR. S1, S2, No m/r/g RESP: CTAB ABD: Soft, NT, ND, +BS EXT: 1+ edema.. A big bruise (ecchymoses) noted at the left LE with surrounding erythema. 2+ DP. No rashes NEURO: Nonfocal Internal Medicine: Result - Labs CBC & Chem 7: 02/20/18 03:07 02/20/18 03:07 Labs: Short CBC 02/20/18 Range/Units 03:07 WBC 8.1 (4.3-11.1) K/mcL Hgb 11.3 L D (11.5-15.4) g/dL Hct 35.3 (35.3-44.9) % Plt Count 171 (140-400) K/mcL BMP 02/20/18 03:07 Sodium 128 L Potassium 4.7 Chloride 104 Carbon Dioxide 21 L BUN 13 Creatinine 0.90 Glucose 135 H Calcium 7.5 L Liver Function 02/20/18 Range/Units 03:07 Total Bilirubin 0.4 (0.3-1.0) mg/dL AST 11 L (13-39) Units/L ALT 11 (7-52) Units/L Alkaline Phosphatase 80 (34-104) Units/L Albumin 2.9 L (3.5-5.7) g/dL Consult Discharge Plan - Plan Referrals: Bob Roberto MD [Primary Care Provider] -
[2018-02-21 04:08] LABS: Basophils # 0.1 K/mcL (0.0-0.2); Basophils % 0.8 %; Eosinophils # 0.1 K/mcL (0.0-0.6); Hematocrit 35.4 % (35.3-44.9); Hemoglobin 11.3 g/dL (11.5-15.4); Immature Granulocytes % 0.4 % (0-4); Lymphocytes # 2.1 K/mcL (0.6-4.6); Mean Corpuscular HGB Conc 31.9 g/dL (31.6-35.5); Mean Corpuscular Hemoglobin 25.9 pg (28.0-33.3); Mean Platelet Volume 12.1 fL (9.4-12.4); Monocytes # 0.9 K/mcL (0.0-1.3); Monocytes % 10.8 %; Neutrophils # 4.8 K/mcL (1.6-8.9); Platelet Count 169 K/mcL (140-400); Red Blood Count 4.37 M/mcL (3.82-4.97); Red Cell Distribution Width 15.9 % (11.5-14.5)
[2018-02-21 04:28] LABS: BUN/Creatinine Ratio 12 (6-26); Blood Urea Nitrogen 13 mg/dL (6-20); Calcium 7.8 mg/dL (8.6-10.3); Carbon Dioxide 19 mEq/L (23-29); Chloride 105 mEq/L (98-107); Glucose 61 mg/dL (70-105); Magnesium 1.7 mg/dL (1.6-2.6); Osmolality,Calculated 264 (280-300); Sodium 128 mEq/L (136-145); eGFR For African Americans > 60 (> 60); eGFR For Non-African Americans 52 (> 60)
[2018-02-21] MEDS: *HR* Enoxaparin 40 MG/0.4 ML SYRINGE SQ SCH (06:05)
[2018-02-21] MEDS: Insulin LISPRO 300 UNITS/3 ML VIAL SQ SCH ×4 (07:13→21:11)
[2018-02-21] MEDS: Lisinopril 20 MG TABLET PO SCH (07:15)
[2018-02-21] MEDS: Aspirin Enteric Coated 81 MG Tablet PO SCH (08:40)
[2018-02-21] MEDS: Gabapentin 300 MG CAPSULE PO SCH ×3 (08:40→21:08)
[2018-02-21] MEDS: Prenatal Vit/FA 1 EACH TABLET PO SCH (08:40)
[2018-02-21] MEDS: FLUoxetine 20 MG CAPSULE PO SCH (08:40)
[2018-02-21] MEDS: Iron Polysaccharide Complex 150 MG CAPSULE PO SCH (08:40)
[2018-02-21] MEDS: Insulin DETEMIR 100 UNIT/ML X5UNITS SQ SCH (08:44)
[2018-02-21] MEDS ORDERED: Furosemide 40 MG/4 ML VIAL IVP ONE (10:10)
[2018-02-21] MEDS ORDERED: Isovue-370 500 ML INFUS..BTL IV ONE (11:12)
--- NOTE | 2018-02-21 15:26 | Internal Med Progress Note ---
Date of Encounter: 02/21/18 Time of Encounter: 15:24 - Assessment and plan (1) Cellulitis of left anterior lower leg Current Visit: Yes Status: Acute Assessment and plan: Stable. Erythema improving but skin is very tender warm to touch and indurated. Will obtain CT scan of the left lower extremity for further evaluation. (2) Frequent falls Current Visit: Yes Status: Acute Assessment and plan: Patient was evaluated by physical therapy and recommended placement to inpatient rehabilitation. She will be discharged there when she is medically ready (3) COPD (chronic obstructive pulmonary disease) Current Visit: Yes Status: Chronic Assessment and plan: Not in acute exacerbation. On duonebs as needed Qualifiers: COPD type: emphysema Emphysema type: unspecified Qualified Code(s): J43.9 - Emphysema, unspecified (4) Morbid obesity Current Visit: Yes Status: Chronic (5) HTN (hypertension) Current Visit: Yes Status: Chronic Assessment and plan: Blood pressure is well controlled. Qualifiers: Hypertension type: essential hypertension Qualified Code(s): I10 - Essential (primary) hypertension (6) DVT prophylaxis Current Visit: Yes Status: Acute Assessment and plan: On subcutaneous Lovenox (7) Diabetes mellitus Current Visit: Yes Status: Chronic Assessment and plan: Blood sugars are well controlled. She did have an episode of hypoglycemia yesterday. Will decrease Levemir dosage. Qualifiers: Diabetes mellitus type: type 2 Diabetes mellitus termite inspector insulin use: with termite inspector use Diabetes mellitus complication status: without complication Qualified Code(s): E11.9 - Type 2 diabetes mellitus without complications; Z79.4 - equipment operator intermodal yard (current) use of insulin; Z79.4 - assisted ( current) use of insulin; Z79.4 - equipment operator intermodal yard (current) use of insulin; Z79.4 - assisted (current) use of insulin (8) Hyponatremia Current Visit: Yes Status: Acute Assessment and plan: Sodium levels remained stable. 128 today. (9) MADONNA (acute kidney injury) Current Visit: Yes Status: Acute Assessment and plan: Resolved. (10) Pedal edema Current Visit: Yes Status: Acute Assessment and plan: Bilateral pitting pedal edema. Will place patient back on Lasix. - Time Spent With Patient Total time spent is greater than 50% in coordination of care (as documented) at patient's floor/unit and/or counseling patient: - Subjective Interval history: Patient is awake and alert. Complains of pain in left lower extremity. Denies any shortness of breath. No nausea or vomiting.no fever or chills reported overnight - Constitutional Vitals: Temp Pulse Resp BP Pulse Ox 97.7 F 77 17 98/65 94 02/21/18 10:49 02/21/18 10:49 02/21/18 10:49 02/21/18 10:49 02/21/18 10:49 General appearance: Present: mild distress, A&O X 3, morbidly obese, pleasant, answers questions appropriately - Neck Neck exam general surgery: Present: supple, trachea midline. Absent: lymphadenopathy - Respiratory Respiratory exam: Present: CTAB. Absent: accessory muscle use, rales, rhonchi, wheezes - Cardiovascular Cardiovascular exam: Present: RRR, +S1, +S2. Absent: diastolic murmur, gallop, rubs, systolic murmur - GI/Abdominal GI/Abdominal exam: Present: normal bowel sounds, soft, no peritoneal signs. Absent: distended, tenderness - Extremities Exam Extremities exam: Present: pedal edema (Bilateral), tenderness (Patient having tenderness in left lower leg anterior surface. Tenderness to movement around her ankle joint also. Skin appears start. Within duration. No discharge. No fluctuance noted underneath.), warm, radial pulses palpable and symmetrical. Absent: calf tenderness, cyanotic - Neurological Exam Neurological exam: Present: CN II-XII intact, oriented X3, no focal deficits. Absent: facial droop, speech deficit - Skin Skin exam: Present: dry, intact Internal Medicine: Result - Labs CBC & Chem 7: 02/21/18 03:31 02/21/18 03:31 Labs: Short CBC 02/21/18 Range/Units 03:31 WBC 7.9 (4.3-11.1) K/mcL Hgb 11.3 L (11.5-15.4) g/dL Hct 35.4 (35.3-44.9) % Plt Count 169 (140-400) K/mcL Neutrophils # 4.8 (1.6-8.9) K/mcL BMP 02/21/18 03:31 Sodium 128 L Potassium 5.0 Chloride 105 Carbon Dioxide 19 L BUN 13 Creatinine 1.08 Glucose 61 L Calcium 7.8 L - Impressions Impressions Echocardiogram Limited Views 02/20/18 14:00 Impressions: Blood pressure 96/58 mmHg at time of study. LVEF 60%. Normal LV chamber size, wall thickness and function. Normal right ventricular structure and function. Left Ventricular Wall Motion: Rest Echo Findings All wall segments showed normal motion. Findings: Study Quality * Technically adequate exam. ECG Findings * Normal sinus rhythm. Left Ventricle * LVEF 60%. * Normal LV chamber size, wall thickness and function. Right Ventricle * Normal right ventricular structure and function. Aorta * Normally sized aortic root. Pericardium * There is no pericardial effusion present. Lower Extremity CT 02/21/18 12:30 IMPRESSION: 1. 9 cm irregular heterogeneously dense collection in the anterolateral subcutaneous fat of the proximal left calf compatible with a hematoma. 2. Circumferential subcutaneous fat stranding and skin thickening compatible with cellulitis versus lymphedema. 3. No acute osseous abnormality. D/ / Naveed Garvey MD / Naveed Garvey MD Interpreting Provider: Naveed Garvey MD Consult Discharge Plan - Plan Referrals: Bob Roberto MD [Primary Care Provider] - 02/27/18 2:30 pm (Please follow up as schedule...)
--- NOTE | 2018-02-21 15:41 | Electrocardiograph Report ---
[place] [id number] Test Date: 2018-02-19 Pat Name: Trice Rincon Department: 102 Room: 2A31 Gender: F Child Welfare Assistant: Myesha : 1960 Requested By: Eber Fonseca Order Number: [id number] Reading MD: Naveed Castanon Measurements Intervals [place] Rate: 80 P: 48 [place]: 197 QRS: -33 QRSD: 82 T: 37 QT: 357 QTc: 392 Interpretive Statements SINUS RHYTHM POSSIBLE INFERIOR MYOCARDIAL INFARCTION, PROBABLY OLD Electronically Signed On 02-21-2018 15:39:54 EDT by Naveed Castanon
[2018-02-21] MEDS: Clindamycin 600 MG/50 ML 600 MG/50 ML IV.SOLN IVPB SCH ×2 (16:06→23:30)
--- NOTE | 2018-02-21 19:51 | Orthopedic Consult Note ---
Date of Encounter: 02/21/18 Time of Encounter: 19:41 History of Present Illness Chief complaint: Left lower leg pain and swelling HPI: Ms. Rincon is a 57 year old female who sustained a fall at home when she fell into the bath tub 2 days ago. Patient states that she lost her balance and fell into the tub. Since that time she has had pain swelling and bruising of the left lower extremity. Patient states that she takes aspirin 81 mg daily, no other oral anticoagulants. Patient is describing some chronic numbness, she relates to having neuropathy. I reviewed the patient's history and physical examination as well documented on the chart. Pertinent orthopedic examination this time reveals massive subcutaneous erythema and ecchymosis in the anterolateral aspect of the left lower leg. Knee shows no evidence of an effusion. There is crepitance in the knee especially in the patellofemoral joint. There is intact motor function distally. Sensation is somewhat globally diminished in the foot. Laboratory data includes a normal WBC count without evidence of a left shift. Patient has had a relatively sustained hyponatremia of 126-128. She has mild elevation of her potassium. She has findings of chronic kidney disease. Blood sugars have been elevated. She has not had an elevated CK. I reviewed a tibia and fibula x-ray. This shows no evidence of fracture. There is small sheer tibial exostosis in the proximal third. There are obvious arthritic changes at the knee. A CT scan of the leg from the knee distal reveals the previously noted arthritis. This is quite severe especially in the patellofemoral joint and medial compartment. Tibia and fibula show no evidence of fracture. There is a large amount of subcutaneous fluid consistent with the bleeding into the soft tissues seen clinically. In addition there is a fairly large subfascial fluid collection in the lateral compartment. This is consistent with a deep hematoma. Ankle is relatively unremarkable. There is some subtalar arthritis. Impression: Left lower extremity contusion with subcutaneous bruising and subfascial hematoma lateral compartment Recommendation: No intervention is required. Would recommend elevation as much as possible and observation of the extremity. Consider use of the compression stockings to help mobilize some of the fluid. Thank you very much for allowing me to see care for Mrs. Rincon. Sincerely, Oneil James,DO Past Med Surg Social Fam HX - Past Medical History Medical history: COPD, diabetes, hyperlipidemia Psychiatric history: no psych history - Past Surgical History Surgical History: cholecystectomy, orthopedic, other - Social History Smoking Status: Current every day smoker Smokeless Tobacco Status: No Alcohol use: none Drug use: none Medications and Allergies Aspirin [Adult Low Dose Aspirin EC] 81 mg PO DAILY 01/11/16 [History] Atorvastatin Calcium [Lipitor] 20 mg PO DAILY 01/11/16 [History] FLUoxetine HCl [PROzac] 20 mg PO DAILY 01/11/16 [History] Gabapentin [Neurontin] 300 mg PO BID 01/11/16 [History] Insulin ASPART [Novolog] 15 unit SQ TID 01/11/16 [History] Insulin Glargine,Hum.rec.anlog [Lantus Solostar] 36 unit SQ QAM 01/11/16 [ History] Lisinopril [Zestril] 20 mg PO DAILY 01/11/16 [History] Metformin HCl [Glucophage] 1,000 mg PO BID 01/11/16 [History] Oxybutynin Chloride [Ditropan Xl] 20 mg PO HS 01/11/16 [History] Meloxicam 7.5 mg PO DAILY #20 tablet 03/26/17 [Rx] Furosemide [Lasix] 20 mg PO DAILY 02/19/18 [History] Gabapentin [Neurontin] 600 mg PO HS 02/19/18 [History] Iron Ps Cmplx/Vit B12/FA [Poly-Iron 150 Forte Capsule] 1 cap PO DAILY 02/19/18 [ History] Vit/Iron Fumarate/FA [ Tablet] 1 tab PO DAILY 02/19/18 [History ] 3 Allergy/AdvReac Type Severity Reaction Status Date / Time tetanus immune globulin Allergy Hives Verified 02/19/18 19:38 liraglutide [From Victoza] AdvReac Severe Nausea Verified 02/19/18 19:38 All Systems Reviewed: The remainder of the systems were reviewed and are negative Physical Exam - Constitutional Vitals: Temp Pulse Resp BP Pulse Ox 99.0 F 78 16 139/84 98 02/21/18 18:30 02/21/18 18:30 02/21/18 18:30 02/21/18 18:30 02/21/18 18:30 Results - Labs Result Diagrams: 02/21/18 03:31 02/21/18 03:31 Labs: Abnormal lab results Hgb 11.3 g/dL (11.5-15.4) L 02/21/18 03:31 MCV 81.0 fL (83.0-100.0) L 02/21/18 03:31 MCH 25.9 pg (28.0-33.3) L 02/21/18 03:31 RDW 15.9 % (11.5-14.5) H 02/21/18 03:31 Sodium 128 mEq/L (136-145) L 02/21/18 03:31 Carbon Dioxide 19 mEq/L (23-29) L 02/21/18 03:31 Est GFR (Non-Af Amer) 52 (> 60) L 02/21/18 03:31 Glucose 61 mg/dL (70-105) L 02/21/18 03:31 POC Glucose 159 mg/dL (70-99) H 02/21/18 10:51 Calculated Osmolality 264 (280-300) L 02/21/18 03:31 Calcium 7.8 mg/dL (8.6-10.3) L 02/21/18 03:31 AST 11 Units/L (13-39) L 02/20/18 03:07 B-Natriuretic Peptide 110 pg/mL (Less than 100) H 02/20/18 03:07 Serum Total Protein 5.1 g/dL (6.4-8.9) L 02/20/18 03:07 Albumin 2.9 g/dL (3.5-5.7) L 02/20/18 03:07 Globulin 2.2 g/dL (2.4-3.5) L 02/20/18 03:07 HDL Cholesterol 26 mg/dL (40-59) L 02/20/18 03:07 Urine Protein 30 mg/dL (Neg-Trace) H 02/19/18 20:45 Ur Leukocyte Esterase Trace (Negative) H 02/19/18 20:45 Ur Squamous Epith Cells Moderate per lpf (None-Few) H 02/19/18 20:45 Ur Culture Indicated? YES (NO) A 02/19/18 20:45 H & H 02/21/18 Range/Units 03:31 Hgb 11.3 L (11.5-15.4) g/dL Hct 35.4 (35.3-44.9) % All other labs normal. - Diagnostic results Knee x-ray: image reviewed Knee CT: image reviewed Ankle/Foot x-ray: image reviewed Ankle/Foot CT: image reviewed Consult Discharge Plan - Plan Referrals: Bob Roberto MD [Primary Care Provider] - 02/27/18 2:30 pm (Please follow up as schedule...)
[2018-02-21] MEDS: Lactobacillus 1 EACH CAP.SPRINK PO SCH (21:08)
[2018-02-22 04:14] LABS: Basophils # 0.1 K/mcL (0.0-0.2); Eosinophils # 0.1 K/mcL (0.0-0.6); Eosinophils % 1.7 %; Hematocrit 37.6 % (35.3-44.9); Immature Granulocytes % 0.4 % (0-4); Lymphocytes # 1.4 K/mcL (0.6-4.6); Lymphocytes % 17.7 %; Mean Corpuscular HGB Conc 31.9 g/dL (31.6-35.5); Mean Corpuscular Hemoglobin 25.8 pg (28.0-33.3); Mean Corpuscular Volume 80.7 fL (83.0-100.0); Mean Platelet Volume 13.2 fL (9.4-12.4); Monocytes # 0.8 K/mcL (0.0-1.3); Monocytes % 10.2 %; Neutrophils # 5.5 K/mcL (1.6-8.9); Platelet Count 180 K/mcL (140-400); Red Blood Count 4.66 M/mcL (3.82-4.97); Red Cell Distribution Width 16.3 % (11.5-14.5)
[2018-02-22] MEDS: *HR* Enoxaparin 40 MG/0.4 ML SYRINGE SQ SCH (06:11)
[2018-02-22 06:14] LABS: BUN/Creatinine Ratio 13 (6-26); Blood Urea Nitrogen 12 mg/dL (6-20); Carbon Dioxide 22 mEq/L (23-29); Chloride 108 mEq/L (98-107); Glucose 220 mg/dL (70-105); Osmolality,Calculated 277 (280-300); Potassium 6.2 mEq/L (3.5-5.1); Sodium 130 mEq/L (136-145); eGFR For African Americans > 60 (> 60); eGFR For Non-African Americans > 60 (> 60)
[2018-02-22] MEDS ORDERED: Furosemide 20 MG TABLET PO SCH (08:00)
[2018-02-22] MEDS: Insulin LISPRO 300 UNITS/3 ML VIAL SQ SCH ×2 (09:20→12:29)
[2018-02-22] MEDS: Lactobacillus 1 EACH CAP.SPRINK PO SCH (09:21)
[2018-02-22] MEDS: Lisinopril 20 MG TABLET PO SCH (09:22)
[2018-02-22] MEDS: Gabapentin 300 MG CAPSULE PO SCH (09:22)
[2018-02-22] MEDS: FLUoxetine 20 MG CAPSULE PO SCH (09:23)
[2018-02-22] MEDS: Prenatal Vit/FA 1 EACH TABLET PO SCH (09:23)
[2018-02-22] MEDS: Iron Polysaccharide Complex 150 MG CAPSULE PO SCH (09:23)
[2018-02-22] MEDS: Aspirin Enteric Coated 81 MG Tablet PO SCH (09:23)
[2018-02-22] MEDS: Insulin DETEMIR 100 UNIT/ML X5UNITS SQ SCH (09:29)
[2018-02-22] MEDS: Clindamycin 600 MG/50 ML 600 MG/50 ML IV.SOLN IVPB SCH (09:34)
--- NOTE | 2018-02-22 10:23 | Discharge Summary ---
- NOTES TO OUTPATIENT PROVIDER Notes to Outpatient Provider: Patient admitted with cellulitis involving left leg and recurrent falls. Treated with antibiotics with improvement in symptoms. Evaluated by physical therapy and recommended placement to skilled rehabilitation for generalized weakness. She does have a subfascial hematoma in her left lower extremity which was evaluated by orthopedics. Recommended lower extremity elevation and compression stockings. Orders not resulted at time of discharge: Pending orders 02/22/18 09:58 Potassium Routine Date of Encounter: 02/22/18 Time of Encounter: 10:18 - Discharge Diagnosis (1) Cellulitis of left anterior lower leg Priority: Primary Status: Acute (2) Frequent falls Priority: Secondary Status: Acute (3) COPD (chronic obstructive pulmonary disease) Priority: Secondary Status: Chronic Qualifiers: COPD type: emphysema Emphysema type: unspecified Qualified Code(s): J43.9 - Emphysema, unspecified (4) Morbid obesity Priority: Secondary Status: Chronic (5) HTN (hypertension) Priority: Secondary Status: Chronic Qualifiers: Hypertension type: essential hypertension Qualified Code(s): I10 - Essential (primary) hypertension (6) Diabetes mellitus Priority: Secondary Status: Chronic Qualifiers: Diabetes mellitus type: type 2 Diabetes mellitus terminal press operator insulin use: with terminal press operator use Diabetes mellitus complication status: without complication Qualified Code(s): E11.9 - Type 2 diabetes mellitus without complications; Z79.4 - exterminator (current) use of insulin; Z79.4 - exterminator ( current) use of insulin; Z79.4 - long-term (current) use of insulin; Z79.4 - exterminator (current) use of insulin (7) Hyponatremia Priority: Secondary Status: Acute (8) MADONNA (acute kidney injury) Priority: Secondary Status: Acute (9) Pedal edema Priority: Secondary Status: Acute (10) DVT prophylaxis Priority: Secondary Status: Acute (11) Hyperkalemia Priority: Secondary Status: Acute Hospital course: Ms. Rincon is a 57 year old female patient with history of COPD, hypertension , diabetes, hyperlipidemia who was hospitalized here with recurrent falls and generalized weakness. She was also diagnosed with cellulitis involving the left lower extremity. She was started on treatment with IV antibiotics. She was evaluated by physical therapy and recommended him to skilled rehabilitation. She has swelling and induration involving the left lower extremity with some pain on movement. As such a CT scan of the left lower extremity was done which showed subfascial hematoma. Orthopedics was consulted and they recommended leg elevation and compressive stockings. She was also given Lasix with improvement in her edema. Presently she is doing much better and is clinically stable to be discharged to skilled rehabilitation. She will complete antibiotic treatment with clindamycin. She will continue to take Lasix twice a day for 2 more days and then transition to once daily dosing. She will follow up with her primary care provider for further management. Discharge discussed with: patient, nurse, case management - Time Spent with Patient Total time spent providing and/or coordinating discharge services: Greater than 30 minutes (40 min) - Discharge Medications Prescriptions: Clindamycin [Cleocin] 450 mg PO Q6HR 7 Days capsule Furosemide [Lasix] 20 mg PO HS #2 tablet Gabapentin [Neurontin] 300 mg PO BID #30 capsule Home Medications: Aspirin [Adult Low Dose Aspirin EC] 81 mg PO DAILY 01/11/16 [History] Atorvastatin Calcium [Lipitor] 20 mg PO DAILY 01/11/16 [History] FLUoxetine HCl [Prozac] 20 mg PO DAILY 01/11/16 [History] Insulin ASPART [Novolog] 15 unit SQ TID 01/11/16 [History] Insulin Glargine,Hum.rec.anlog [Lantus Solostar] 36 unit SQ QAM 01/11/16 [ History] Lisinopril [Zestril] 20 mg PO DAILY 01/11/16 [History] Metformin HCl [Glucophage] 1,000 mg PO BID 01/11/16 [History] Oxybutynin Chloride [Ditropan Xl] 20 mg PO HS 01/11/16 [History] Meloxicam 7.5 mg PO DAILY #20 tablet 03/26/17 [Rx] Furosemide [Lasix] 20 mg PO DAILY 02/19/18 [History] Gabapentin [Neurontin] 600 mg PO HS 02/19/18 [History] Iron Ps Cmplx/Vit B12/FA [Poly-Iron 150 Forte Capsule] 1 cap PO DAILY 02/19/18 [ History] Vit/Iron Fumarate/FA [ Tablet] 1 tab PO DAILY 02/19/18 [History ] Acetaminophen [Tylenol] 650 mg PO Q6HR PRN tablet 02/22/18 [Rx] Clindamycin [Cleocin] 450 mg PO Q6HR 7 Days capsule 02/22/18 [Rx] Furosemide [Lasix] 20 mg PO HS #2 tablet 02/22/18 [Rx] Gabapentin [Neurontin] 300 mg PO BID #30 capsule 02/22/18 [Rx] Lactobacillus [Culturelle] 1 each PO BID cap.sprink 02/22/18 [Rx] Allergies/Adverse Reactions: 3 Allergy/AdvReac Type Severity Reaction Status Date / Time tetanus immune globulin Allergy Hives Verified 02/19/18 19:38 liraglutide [From Victoza] AdvReac Severe Nausea Verified 02/19/18 19:38 Date of admission: 02/19/18 22:45 Primary care physician: Bob Roberto MD Consults: 02/20/18 13:16 Consult to Index Clerk [CONS] Routine Reason for SW Consult: needs swing bed 02/21/18 15:34 Consult to Orthopedic Surgery [CONS] Routine Consulting Provider: Orthopedic and Sports Medicine Reason for Consult: LEft leg subcutaneous hematoma Call Completed: Yes Discharging clinician: Andrzej Wilson Anticipated date of discharge: 02/22/18 - Constitutional Vitals: Temp Pulse Resp BP Pulse Ox 97.5 F L 75 18 101/64 98 02/22/18 07:30 02/22/18 07:30 02/22/18 07:30 02/22/18 07:30 02/22/18 07:30 General appearance: Present: mild distress, A&O X 3, morbidly obese, pleasant, answers questions appropriately - Neck Neck exam general surgery: Present: supple, trachea midline. Absent: lymphadenopathy - Respiratory Respiratory exam: Present: CTAB. Absent: accessory muscle use, rales, rhonchi, wheezes - Cardiovascular Cardiovascular exam: Present: RRR, +S1, +S2. Absent: diastolic murmur, gallop, rubs, systolic murmur - GI/Abdominal GI/Abdominal exam: Present: normal bowel sounds, soft, no peritoneal signs. Absent: distended, tenderness - Extremities Exam Extremities exam: Present: pedal edema (Improved), warm, radial pulses palpable and symmetrical. Absent: calf tenderness, cyanotic Additional comments: Improving in left lower extremity. Induration and tenderness still present in the lower left leg. - Neurological Exam Neurological exam: Present: CN II-XII intact, oriented X3, no focal deficits, strengths equal and symetr throughout. Absent: facial droop, speech deficit - Skin Skin exam: Present: dry, intact - Patient Status Disposition: Transfer SNF Condition: Fair Functional capacity at discharge: uses cane/walker Overall status at discharge: patient is progressing back to baseline - Discharge Instructions Instructions: Cellulitis (DC) Follow Up With: Bob Roberto MD [Primary Care Provider] - 02/27/18 2:30 pm (Please follow up as schedule...) - Diet and Activity Activity: increase activity as tolerated Diet: diabetic diet, low fat, low cholesterol, low salt diet
--- NOTE | 2018-02-22 10:29 | Physician Discharge Referral ---
ExtendedCare Referral Info Provider in Charge after Transfer: PCP Institutional Level of Care: Skilled - Diagnosis (1) Cellulitis of left anterior lower leg Priority: Primary Status: Acute (2) Frequent falls Priority: Secondary Status: Acute (3) COPD (chronic obstructive pulmonary disease) Priority: Secondary Status: Chronic (4) Morbid obesity Priority: Secondary Status: Chronic (5) HTN (hypertension) Priority: Secondary Status: Chronic (6) Diabetes mellitus Priority: Secondary Status: Chronic (7) Hyponatremia Priority: Secondary Status: Acute (8) MADONNA (acute kidney injury) Priority: Secondary Status: Acute (9) Pedal edema Priority: Secondary Status: Acute (10) DVT prophylaxis Priority: Secondary Status: Acute (11) Hyperkalemia Priority: Secondary Status: Acute Prognosis: Fair Aware of Diagnosis: Patient Aware of Prognosis: Patient - Transfer Medications Prescriptions: Clindamycin [Cleocin] 450 mg PO Q6HR 7 Days capsule Furosemide [Lasix] 20 mg PO HS #2 tablet Home Medications: Aspirin [Adult Low Dose Aspirin EC] 81 mg PO DAILY 01/11/16 [History] Atorvastatin Calcium [Lipitor] 20 mg PO DAILY 01/11/16 [History] FLUoxetine HCl [Prozac] 20 mg PO DAILY 01/11/16 [History] Gabapentin [Neurontin] 300 mg PO BID 01/11/16 [History] Insulin ASPART [Novolog] 15 unit SQ TID 01/11/16 [History] Insulin Glargine,Hum.rec.anlog [Lantus Solostar] 36 unit SQ QAM 01/11/16 [ History] Lisinopril [Zestril] 20 mg PO DAILY 01/11/16 [History] Metformin HCl [Glucophage] 1,000 mg PO BID 01/11/16 [History] Oxybutynin Chloride [Ditropan Xl] 20 mg PO HS 01/11/16 [History] Meloxicam 7.5 mg PO DAILY #20 tablet 03/26/17 [Rx] Furosemide [Lasix] 20 mg PO DAILY 02/19/18 [History] Gabapentin [Neurontin] 600 mg PO HS 02/19/18 [History] Iron Ps Cmplx/Vit B12/FA [Poly-Iron 150 Forte Capsule] 1 cap PO DAILY 02/19/18 [ History] Vit/Iron Fumarate/FA [ Tablet] 1 tab PO DAILY 02/19/18 [History ] Acetaminophen [Tylenol] 650 mg PO Q6HR PRN tablet 02/22/18 [Rx] Clindamycin [Cleocin] 450 mg PO Q6HR 7 Days capsule 02/22/18 [Rx] Furosemide [Lasix] 20 mg PO HS #2 tablet 02/22/18 [Rx] Lactobacillus [Culturelle] 1 each PO BID cap.sprink 02/22/18 [Rx] Allergies/Adverse Reactions: 3 Allergy/AdvReac Type Severity Reaction Status Date / Time tetanus immune globulin Allergy Hives Verified 02/19/18 19:38 liraglutide [From Victoza] AdvReac Severe Nausea Verified 02/19/18 19:38 - Respiratory Orders Smoking Cessation: Smoking cessation has been advised. For more information, call the [facility] Tobacco Quit Line at 9-128-JZEK-NOW. - Advance Directives Code Status: Full Code - Mobility Orders Other (per PT eval) - Rehabiliation Orders Rehab Potential: Fair Rehab Orders: Evaluation for Physical Therapy, Evaluation for Occupational Therapy - Diet Orders No Concentrated Sweets (diabetic), Cardiac CERTIFICATION: I certify that the transfer of the above named patient to an Extended Care Facility is necessary for the continuing treatment of the diagnosis listed. The above information is true and accurate reflection of patient's current condition. Confidential - Redisclosure prohibited without a patient's written consent.
[2018-02-22 11:36] VITALS: BP 114/77
== END 2018-02-22 15:48 | DRG 603 ==
LOC: 2ANU 14:08 → EMEROO 14:08 → SUATTDRO 22:45 → 2ANU 23:10
PROVIDERS: ADMIT Internal Medicine; ATTEND Internal Medicine

== ENCOUNTER 2019-08-15 13:39 | Inpatient (IN) ==
[2019-08-15] MEDS ORDERED: Ipratropium/Albuterol Neb 3 ML IH ONE (14:18)
[2019-08-15] MEDS ORDERED: Benzonatate 100 MG CAPSULE PO STA (14:18)
[2019-08-15 14:24] LABS: Basophils # 0.1 K/mcL (0.0-0.2); Basophils % 0.7 %; Eosinophils # 0.1 K/mcL (0.0-0.6); Eosinophils % 1.3 %; Hematocrit 31.9 % (35.3-44.9); Hemoglobin 10.4 g/dL (11.5-15.4); Immature Granulocytes % 0.4 % (0-4); Lymphocytes # 0.7 K/mcL (0.6-4.6); Lymphocytes % 9.5 %; Mean Corpuscular HGB Conc 32.6 g/dL (31.6-35.5); Mean Corpuscular Hemoglobin 26.7 pg (28.0-33.3); Mean Platelet Volume 11.4 fL (9.4-12.4); Monocytes # 0.6 K/mcL (0.0-1.3); Monocytes % 8.3 %; Neutrophils # 5.6 K/mcL (1.6-8.9); Platelet Count 143 K/mcL (140-400); Red Blood Count 3.89 M/mcL (3.82-4.97); Red Cell Distribution Width 15.3 % (11.5-14.5); Segmented Neutrophils % 79.8 %; White Blood Count 7.1 K/mcL (4.3-11.1)
[2019-08-15 14:46] LABS: BUN/Creatinine Ratio 27 (6-26); Blood Urea Nitrogen 40 mg/dL (8-23); Calcium 8.4 mg/dL (8.6-10.3); Carbon Dioxide 20 mEq/L (23-29); Chloride 97 mEq/L (98-107); Glucose 161 mg/dL (70-105); Osmolality,Calculated 269 (280-300); Potassium 5.4 mEq/L (3.5-5.1); Sodium 123 mEq/L (136-145); Troponin I < 0.03 ng/mL (< 0.04); eGFR For African Americans 44 (> 60); eGFR For Non-African Americans 36 (> 60)
[2019-08-15] MEDS ORDERED: 0.9 % Sodium Chloride 1,000 ML IVC ONE (15:43)
[2019-08-15] MEDS ORDERED: Naloxone 0.4 MG/ML INJ IVP PRN (16:58)
[2019-08-15] MEDS ORDERED: *HR* Promethazine 25 MG/ML VIAL IVP PRN (17:04)
[2019-08-15] MEDS ORDERED: methylPREDNISolone 125 MG/2 ML VIAL IVP ONE ×2 (18:47→21:15)
[2019-08-15] MEDS ORDERED: *HR* Dextrose 50 % in Water (Syg) 50 ML SYRINGE IVP PRN (19:16)
[2019-08-15] MEDS ORDERED: D5% in Water 1,000 ML IVC PRN (19:16)
[2019-08-15] MEDS ORDERED: Dextrose Gel 15 GM/37.5 ML TUBE PO PRN ×2 (19:16)
[2019-08-15] MEDS: Azithromycin 500 MG in 0.9 % Sodium Chloride 250 ML IVPB SCH (21:19)
[2019-08-15] MEDS: Fluticasone Propionate Nasal 50 MCG/SPRAY BOTTLE NS SCH (21:20)
[2019-08-15] MEDS: Insulin LISPRO 300 UNITS/3 ML VIAL SQ SCH (21:20)
[2019-08-15] MEDS: hydrALAZINE 25 MG TABLET PO SCH (21:20)
[2019-08-15] MEDS: Ondansetron ODT 4 MG TAB.RAPDIS SL PRN (21:34)
[2019-08-15] MEDS: Ipratropium/Albuterol Neb 3 ML IH SCH (21:55)
[2019-08-15 22:36] LABS: Adenovirus Not Detected (Not Detect); Coronavirus 229E Not Detected (Not Detect); Coronavirus NL63 Not Detected (Not Detect); Coronavirus OC43 Not Detected (Not Detect); Human Metapneumovirus Not Detected (Not Detect); Human Rhinovirus/Enterovirus DETECTED (Not Detect)
[2019-08-15 22:37] LABS: Bordetella Pertussis Not Detected (Not Detect); Chlamydophila pneumoniae Not Detected (Not Detect); Coronavirus HKU1 Not Detected (Not Detect); Influenza A Subtype 2009 H1 Not Detected (Not Detect); Influenza A Untypeable Not Detected (Not Detect); Influenza B Not Detected (Not Detect); Mycoplasma pneumoniae Not Detected (Not Detect); Parainfluenza Virus 1 Not Detected (Not Detect); Parainfluenza Virus 2 Not Detected (Not Detect); Parainfluenza Virus 3 Not Detected (Not Detect); Parainfluenza Virus 4 Not Detected (Not Detect); Respiratory Syncytial Virus Not Detected (Not Detect)
[2019-08-16 01:09] LABS: Basophils # 0.1 K/mcL (0.0-0.2); Basophils % 0.8 %; Eosinophils % 0.1 %; Hematocrit 30.5 % (35.3-44.9); Hemoglobin 9.6 g/dL (11.5-15.4); Immature Granulocytes % 0.4 % (0-4); Lymphocytes # 0.3 K/mcL (0.6-4.6); Lymphocytes % 4.1 %; Mean Corpuscular HGB Conc 31.5 g/dL (31.6-35.5); Mean Corpuscular Hemoglobin 26.6 pg (28.0-33.3); Mean Corpuscular Volume 84.5 fL (83.0-100.0); Mean Platelet Volume 11.2 fL (9.4-12.4); Monocytes # 0.2 K/mcL (0.0-1.3); Neutrophils # 7.1 K/mcL (1.6-8.9); Platelet Count 116 K/mcL (140-400); Red Blood Count 3.61 M/mcL (3.82-4.97); Red Cell Distribution Width 15.5 % (11.5-14.5); Segmented Neutrophils % 92.6 %; White Blood Count 7.6 K/mcL (4.3-11.1)
[2019-08-16 01:31] LABS: Calcium 8.1 mg/dL (8.6-10.3); Potassium 5.1 mEq/L (3.5-5.1)
[2019-08-16] MEDS: hydrALAZINE 25 MG TABLET PO SCH ×4 (01:40→23:35)
[2019-08-16] MEDS: Ipratropium/Albuterol Neb 3 ML IH SCH ×4 (04:20→22:27)
[2019-08-16] MEDS ORDERED: 0.9 % Sodium Chloride 1,000 ML IVC ONE (08:04)
[2019-08-16] MEDS ORDERED: 0.9 % Sodium Chloride 1,000 ML IVC SCH (08:15)
[2019-08-16] MEDS: predniSONE 20 MG TABLET PO SCH (09:09)
[2019-08-16] MEDS: Insulin DETEMIR 100 UNIT/ML X5UNITS SQ SCH (09:16)
[2019-08-16] MEDS: Insulin LISPRO 300 UNITS/3 ML VIAL SQ SCH ×4 (09:20→20:21)
[2019-08-16] MEDS: Fluticasone Propionate Nasal 50 MCG/SPRAY BOTTLE NS SCH (12:39)
[2019-08-16 16:33] LABS: Potassium 4.8 mEq/L (3.5-5.1)
[2019-08-16] MEDS: Loratadine/Pseudophed (12 HR) 1 EACH TABLET PO SCH ×2 (16:52→20:21)
[2019-08-16] MEDS: Azithromycin 500 MG in 0.9 % Sodium Chloride 250 ML IVPB SCH (19:42)
[2019-08-16] MEDS ORDERED: Insulin DETEMIR 100 UNIT/ML X5UNITS SQ SCH (21:00)
[2019-08-17] MEDS: Ipratropium/Albuterol Neb 3 ML IH SCH ×4 (04:31→21:30)
[2019-08-17 05:03] LABS: Hemoglobin 8.3 g/dL (11.5-15.4); Immature Platelets 6.3 % (1.1-6.1); Mean Corpuscular HGB Conc 33.2 g/dL (31.6-35.5); Mean Corpuscular Hemoglobin 27.1 pg (28.0-33.3); Mean Corpuscular Volume 81.7 fL (83.0-100.0); Mean Platelet Volume 12.7 fL (9.4-12.4); Red Blood Count 3.06 M/mcL (3.82-4.97); Red Cell Distribution Width 15.7 % (11.5-14.5); White Blood Count 10.3 K/mcL (4.3-11.1)
[2019-08-17 05:17] LABS: Potassium 4.7 mEq/L (3.5-5.1)
[2019-08-17] MEDS: Insulin LISPRO 300 UNITS/3 ML VIAL SQ SCH ×4 (07:37→20:38)
[2019-08-17] MEDS: Fluticasone Propionate Nasal 50 MCG/SPRAY BOTTLE NS SCH (07:38)
[2019-08-17] MEDS: Loratadine/Pseudophed (12 HR) 1 EACH TABLET PO SCH ×2 (07:39→20:01)
[2019-08-17] MEDS: predniSONE 20 MG TABLET PO SCH (07:39)
[2019-08-17] MEDS: hydrALAZINE 25 MG TABLET PO SCH ×3 (07:39→23:40)
[2019-08-17] MEDS: Insulin DETEMIR 100 UNIT/ML X5UNITS SQ SCH (08:22)
[2019-08-17] MEDS: Azithromycin 500 MG in 0.9 % Sodium Chloride 250 ML IVPB SCH (20:01)
[2019-08-17] MEDS: Ondansetron ODT 4 MG TAB.RAPDIS SL PRN (20:57)
[2019-08-17] MEDS ORDERED: Gabapentin 300 MG CAPSULE PO SCH (21:00)
[2019-08-17] MEDS: Furosemide 20 MG TABLET PO SCH (23:40)
[2019-08-18] MEDS: Ipratropium/Albuterol Neb 3 ML IH SCH ×2 (03:04→11:06)
[2019-08-18] MEDS ORDERED: Gabapentin 300 MG CAPSULE PO SCH (08:00)
[2019-08-18 09:00] LABS: Hematocrit 27.7 % (35.3-44.9); Hemoglobin 8.9 g/dL (11.5-15.4); Mean Corpuscular HGB Conc 32.1 g/dL (31.6-35.5); Mean Corpuscular Hemoglobin 26.5 pg (28.0-33.3); Mean Corpuscular Volume 82.4 fL (83.0-100.0); Platelet Count 151 K/mcL (140-400); Red Blood Count 3.36 M/mcL (3.82-4.97); White Blood Count 11.3 K/mcL (4.3-11.1)
[2019-08-18] MEDS ORDERED: metOLazone 5 MG TABLET PO SCH (09:00)
[2019-08-18] MEDS: Insulin LISPRO 300 UNITS/3 ML VIAL SQ SCH ×2 (09:10→11:28)
[2019-08-18] MEDS: predniSONE 20 MG TABLET PO SCH (09:16)
[2019-08-18] MEDS: hydrALAZINE 25 MG TABLET PO SCH (09:16)
[2019-08-18] MEDS: Furosemide 20 MG TABLET PO SCH (09:16)
[2019-08-18 09:17] LABS: Calcium 8.5 mg/dL (8.6-10.3); Potassium 4.9 mEq/L (3.5-5.1)
[2019-08-18] MEDS: Loratadine/Pseudophed (12 HR) 1 EACH TABLET PO SCH (09:17)
[2019-08-18] MEDS: Insulin DETEMIR 100 UNIT/ML X5UNITS SQ SCH (09:18)
[2019-08-18] MEDS: Fluticasone Propionate Nasal 50 MCG/SPRAY BOTTLE NS SCH (09:18)
[2019-08-18 11:17] VITALS: BP 138/79
[2019-08-18] MEDS ORDERED: Furosemide 40 MG/4 ML VIAL IVP ONE (11:29)
== END 2019-08-18 15:05 | disposition home or self-care (01) | DRG 191 ==
LOC: EMEROOARM 13:39 → 3BNU 13:39
PROVIDERS: ADMIT Internal Medicine; ATTEND Internal Medicine

== ENCOUNTER 2019-12-14 16:22 | Inpatient (IN) ==
[2019-12-14 18:07] LABS: Basophils % 0.8 %; Eosinophils # 0.1 K/mcL (0.0-0.6); Eosinophils % 1.6 %; Hematocrit 33.7 % (35.3-44.9); Hemoglobin 10.6 g/dL (11.5-15.4); Lymphocytes % 26.9 %; Mean Corpuscular HGB Conc 31.5 g/dL (31.6-35.5); Mean Corpuscular Hemoglobin 26.2 pg (28.0-33.3); Mean Corpuscular Volume 83.4 fL (83.0-100.0); Mean Platelet Volume 13.6 fL (9.4-12.4); Monocytes # 0.4 K/mcL (0.0-1.3); Monocytes % 9.8 %; Neutrophils # 2.4 K/mcL (1.6-8.9); Platelet Count 133 K/mcL (140-400); Red Blood Count 4.04 M/mcL (3.82-4.97); Red Cell Distribution Width 13.5 % (11.5-14.5); Segmented Neutrophils % 60.9 %; White Blood Count 3.9 K/mcL (4.3-11.1)
[2019-12-14 18:30] LABS: Calcium 7.7 mg/dL (8.6-10.3); Potassium 4.7 mEq/L (3.5-5.1); Troponin I 0.03 ng/mL (< 0.04)
[2019-12-14] MEDS ORDERED: 0.9 % Sodium Chloride 500 ML IVC ONE (19:35)
[2019-12-14] MEDS ORDERED: Insulin Regular, Human 100 UNIT/ML SQ ONE (19:35)
[2019-12-14] MEDS ORDERED: Naloxone 0.4 MG/ML INJ IVP PRN (21:28)
[2019-12-14] MEDS ORDERED: D5% in Water 1,000 ML IVC PRN (21:35)
[2019-12-14] MEDS ORDERED: Dextrose Gel 15 GM/37.5 ML TUBE PO PRN ×2 (21:35)
[2019-12-14] MEDS ORDERED: *HR* Dextrose 50 % in Water (Syg) 50 ML SYRINGE IVP PRN (21:35)
[2019-12-14 22:44] LABS: Bilirubin,Urine Negative (Negative); Blood,Urine Small (Negative); Clarity,Urine Clear (Clear); Color,Urine Yellow (Yellow); Glucose,Urine (UA) >=1000 mg/dL (Normal); Ketones,Urine Negative (Negative); PH,Urine 6.5 pH Units (5.0-8.0); Protein,Urine >=300 mg/dL (Neg-Trace); Specific Gravity,Urine 1.023 (1.010-1.025); Urobilinogen,Urine Normal (Normal)
[2019-12-14 22:45] LABS: Leukocyte Esterase,Urine Negative (Negative); Nitrite,Urine Negative (Negative)
[2019-12-14 22:53] LABS: Bacteria,Urine Few per hpf (None-Few); RBC,Urine 0-3 per hpf (0-3); WBC,Urine 0-3 per hpf (0-3); Yeast,Urine Few per hpf (None Seen)
[2019-12-14 22:54] LABS: Squamous Epithelial Cell,Urine Few per lpf (None-Few)
[2019-12-15] MEDS: Nicotine 21 MG PATCH.TD24 TD SCH (01:00)
[2019-12-15] MEDS: Insulin LISPRO 300 UNITS/3 ML VIAL SQ SCH ×4 (01:03→17:16)
[2019-12-15] MEDS ORDERED: Acetaminophen IV 1,000 MG/100 ML INFUS..BTL IVPB ONE (04:19)
[2019-12-15 06:35] LABS: Hematocrit 33.5 % (35.3-44.9); Hemoglobin 10.5 g/dL (11.5-15.4); Mean Corpuscular HGB Conc 31.3 g/dL (31.6-35.5); Mean Corpuscular Hemoglobin 26.4 pg (28.0-33.3); Mean Corpuscular Volume 84.4 fL (83.0-100.0); Mean Platelet Volume 12.9 fL (9.4-12.4); Platelet Count 130 K/mcL (140-400); Red Blood Count 3.97 M/mcL (3.82-4.97); Red Cell Distribution Width 13.5 % (11.5-14.5); White Blood Count 5.5 K/mcL (4.3-11.1)
[2019-12-15 07:04] LABS: Calcium 7.5 mg/dL (8.6-10.3); Potassium 4.2 mEq/L (3.5-5.1); Troponin I 0.03 ng/mL (< 0.04)
[2019-12-15] MEDS: Gabapentin 300 MG CAPSULE PO SCH (10:14)
[2019-12-15] MEDS: Aspirin Enteric Coated 81 MG Tablet PO SCH (10:14)
[2019-12-15] MEDS ORDERED: Sodium Bicarbonate 75 MEQ in 0.45 % Sodium Chloride 1,000 ML IVC SCH (10:15)
[2019-12-15] MEDS: amLODIPine 5 MG TABLET PO SCH (13:17)
[2019-12-15] MEDS: *HR* Heparin 5,000 UNIT/ML VIAL SQ SCH (17:15)
[2019-12-15] MEDS ORDERED: Insulin DETEMIR 100 UNIT/ML X5UNITS SQ SCH (21:00)
[2019-12-16] MEDS: Nicotine 21 MG PATCH.TD24 TD SCH ×2 (00:37→22:20)
[2019-12-16] MEDS ORDERED: Acetaminophen 325 MG TABLET PO ONE (00:45)
[2019-12-16 04:42] LABS: Calcium 7.3 mg/dL (8.6-10.3); Potassium 4.5 mEq/L (3.5-5.1)
[2019-12-16] MEDS: *HR* Heparin 5,000 UNIT/ML VIAL SQ SCH ×2 (05:22→16:56)
[2019-12-16 07:03] LABS: Red Cell Distribution Width 13.6 % (11.5-14.5)
[2019-12-16 07:05] LABS: Hematocrit 29.4 % (35.3-44.9); Hemoglobin 9.6 g/dL (11.5-15.4); Immature Platelets 8.7 % (1.1-6.1); Mean Corpuscular HGB Conc 32.7 g/dL (31.6-35.5); Mean Corpuscular Hemoglobin 26.7 pg (28.0-33.3); Mean Corpuscular Volume 81.7 fL (83.0-100.0); Mean Platelet Volume 13.9 fL (9.4-12.4); Red Blood Count 3.6 M/mcL (3.82-4.97); White Blood Count 5.1 K/mcL (4.3-11.1)
[2019-12-16] MEDS: amLODIPine 5 MG TABLET PO SCH (08:02)
[2019-12-16] MEDS: Gabapentin 300 MG CAPSULE PO SCH (08:02)
[2019-12-16] MEDS: Aspirin Enteric Coated 81 MG Tablet PO SCH (08:02)
[2019-12-16] MEDS: Insulin LISPRO 300 UNITS/3 ML VIAL SQ SCH ×3 (08:06→16:55)
[2019-12-16] MEDS: Insulin DETEMIR 100 UNIT/ML X5UNITS SQ SCH (22:21)
[2019-12-17] MEDS: *HR* Heparin 5,000 UNIT/ML VIAL SQ SCH ×2 (05:12→17:20)
[2019-12-17 05:33] LABS: Hematocrit 33.4 % (35.3-44.9); Hemoglobin 10.5 g/dL (11.5-15.4); Mean Corpuscular HGB Conc 31.4 g/dL (31.6-35.5); Mean Corpuscular Hemoglobin 26.9 pg (28.0-33.3); Mean Corpuscular Volume 85.4 fL (83.0-100.0); Mean Platelet Volume 14.3 fL (9.4-12.4); Platelet Count 144 K/mcL (140-400); Red Blood Count 3.91 M/mcL (3.82-4.97); Red Cell Distribution Width 13.5 % (11.5-14.5); White Blood Count 5.9 K/mcL (4.3-11.1)
[2019-12-17 06:14] LABS: Calcium 7.5 mg/dL (8.6-10.3); Potassium 4.4 mEq/L (3.5-5.1)
[2019-12-17] MEDS: Aspirin Enteric Coated 81 MG Tablet PO SCH (07:50)
[2019-12-17] MEDS: amLODIPine 5 MG TABLET PO SCH (07:50)
[2019-12-17] MEDS: Gabapentin 300 MG CAPSULE PO SCH (07:50)
[2019-12-17] MEDS: Insulin LISPRO 300 UNITS/3 ML VIAL SQ SCH ×4 (07:50→20:31)
[2019-12-17] MEDS: Sennosides/Docusate Sodium TABLET PO SCH (17:19)
[2019-12-17] MEDS: Insulin DETEMIR 100 UNIT/ML X5UNITS SQ SCH (20:32)
[2019-12-17] MEDS: Nicotine 21 MG PATCH.TD24 TD SCH (20:32)
[2019-12-18] MEDS: *HR* Heparin 5,000 UNIT/ML VIAL SQ SCH ×2 (05:50→17:09)
[2019-12-18 06:25] LABS: Hematocrit 28.6 % (35.3-44.9); Mean Corpuscular HGB Conc 31.5 g/dL (31.6-35.5); Mean Corpuscular Hemoglobin 26.7 pg (28.0-33.3); Mean Corpuscular Volume 84.9 fL (83.0-100.0); Mean Platelet Volume 13.9 fL (9.4-12.4); Platelet Count 123 K/mcL (140-400); Red Blood Count 3.37 M/mcL (3.82-4.97); Red Cell Distribution Width 13.4 % (11.5-14.5); White Blood Count 5.6 K/mcL (4.3-11.1)
[2019-12-18 06:51] LABS: Albumin 2.3 g/dL (3.5-5.7); Calcium 7.2 mg/dL (8.6-10.3); Phosphorous 6.1 mg/dL (2.7-4.5); Potassium 5.3 mEq/L (3.5-5.1)
[2019-12-18] MEDS: Insulin LISPRO 300 UNITS/3 ML VIAL SQ SCH ×4 (07:33→20:40)
[2019-12-18] MEDS: Aspirin Enteric Coated 81 MG Tablet PO SCH (07:42)
[2019-12-18] MEDS: amLODIPine 5 MG TABLET PO SCH (07:42)
[2019-12-18] MEDS: Sennosides/Docusate Sodium TABLET PO SCH (07:42)
[2019-12-18] MEDS: Gabapentin 300 MG CAPSULE PO SCH ×2 (07:43→20:40)
[2019-12-18] MEDS ORDERED: 0.9 % Sodium Chloride 250 ML IVC PRN (10:08)
[2019-12-18] MEDS ORDERED: 0.9 % Sodium Chloride 1,000 ML PRIME SCH (10:15)
[2019-12-18 10:56] LABS: Hepatitis B Surface Antigen Nonreactive (Nonreactive)
[2019-12-18] MEDS ORDERED: *HR* Heparin 10,000 UNIT/10 ML VIAL IV PRN (10:58)
[2019-12-18] MEDS ORDERED: *HR* Heparin 5,000 UNIT/ML VIAL ONE (11:03)
[2019-12-18 16:33] LABS: Bacteria,Urine None Seen per hpf (None-Few); Bilirubin,Urine Negative (Negative); Blood,Urine Trace (Negative); Clarity,Urine Clear (Clear); Color,Urine Yellow (Yellow); Glucose,Urine (UA) 250 mg/dL (Normal); Hyaline Casts,Urine None Seen per lpf (None-Few); Ketones,Urine Negative (Negative); Leukocyte Esterase,Urine Negative (Negative); Nitrite,Urine Negative (Negative); PH,Urine 6.5 pH Units (5.0-8.0); Protein,Urine >=300 mg/dL (Neg-Trace); RBC,Urine 0-3 per hpf (0-3); Specific Gravity,Urine 1.012 (1.010-1.025); Squamous Epithelial Cell,Urine Many per lpf (None-Few); Urobilinogen,Urine Normal (Normal)
[2019-12-18] MEDS: Acetaminophen 325 MG TABLET PO PRN (17:09)
[2019-12-18] MEDS: Insulin DETEMIR 100 UNIT/ML X5UNITS SQ SCH (20:40)
[2019-12-18] MEDS: Nicotine 21 MG PATCH.TD24 TD SCH (20:40)
[2019-12-19] MEDS: *HR* Heparin 5,000 UNIT/ML VIAL SQ SCH ×2 (05:47→17:28)
[2019-12-19 06:33] LABS: Albumin 2.3 g/dL (3.5-5.7); Calcium 7.3 mg/dL (8.6-10.3); Phosphorous 5.1 mg/dL (2.7-4.5); Potassium 4.7 mEq/L (3.5-5.1)
[2019-12-19] MEDS ORDERED: 0.9 % Sodium Chloride 250 ML IVC PRN (07:25)
[2019-12-19] MEDS: Insulin LISPRO 300 UNITS/3 ML VIAL SQ SCH ×4 (09:46→22:00)
[2019-12-19] MEDS: Sennosides/Docusate Sodium TABLET PO SCH (09:48)
[2019-12-19] MEDS: Aspirin Enteric Coated 81 MG Tablet PO SCH (09:48)
[2019-12-19] MEDS: amLODIPine 5 MG TABLET PO SCH (09:48)
[2019-12-19] MEDS: Nicotine 21 MG PATCH.TD24 TD SCH (20:06)
[2019-12-19] MEDS: Insulin DETEMIR 100 UNIT/ML X5UNITS SQ SCH (21:30)
[2019-12-20 02:14] LABS: Basophils % 0.9 %; Eosinophils # 0.1 K/mcL (0.0-0.6); Eosinophils % 1.8 %; Hematocrit 26.7 % (35.3-44.9); Hemoglobin 8.2 g/dL (11.5-15.4); Immature Granulocytes % 0.2 % (0-4); Lymphocytes # 1.4 K/mcL (0.6-4.6); Lymphocytes % 30.9 %; Mean Corpuscular HGB Conc 30.7 g/dL (31.6-35.5); Mean Corpuscular Hemoglobin 26.2 pg (28.0-33.3); Mean Corpuscular Volume 85.3 fL (83.0-100.0); Mean Platelet Volume 13.6 fL (9.4-12.4); Monocytes # 0.6 K/mcL (0.0-1.3); Monocytes % 12.4 %; Neutrophils # 2.4 K/mcL (1.6-8.9); Platelet Count 106 K/mcL (140-400); Red Blood Count 3.13 M/mcL (3.82-4.97); Red Cell Distribution Width 13.4 % (11.5-14.5); Segmented Neutrophils % 53.8 %; White Blood Count 4.4 K/mcL (4.3-11.1)
[2019-12-20 02:30] LABS: Calcium 7.2 mg/dL (8.6-10.3); Potassium 4.6 mEq/L (3.5-5.1)
[2019-12-20] MEDS: *HR* Heparin 5,000 UNIT/ML VIAL SQ SCH ×2 (05:48→17:07)
[2019-12-20] MEDS: Sennosides/Docusate Sodium TABLET PO SCH (07:58)
[2019-12-20] MEDS: Aspirin Enteric Coated 81 MG Tablet PO SCH (07:58)
[2019-12-20] MEDS: Insulin LISPRO 300 UNITS/3 ML VIAL SQ SCH ×4 (07:59→22:45)
[2019-12-20] MEDS: amLODIPine 5 MG TABLET PO SCH (08:02)
[2019-12-20] MEDS: Insulin DETEMIR 100 UNIT/ML X5UNITS SQ SCH (22:44)
[2019-12-20] MEDS: Nicotine 21 MG PATCH.TD24 TD SCH (22:45)
[2019-12-21 02:31] LABS: Hematocrit 29.3 % (35.3-44.9); Immature Platelets 4.8 % (1.1-6.1); Mean Corpuscular HGB Conc 30.7 g/dL (31.6-35.5); Mean Corpuscular Hemoglobin 26.5 pg (28.0-33.3); Mean Corpuscular Volume 86.4 fL (83.0-100.0); Mean Platelet Volume 12.7 fL (9.4-12.4); Red Blood Count 3.39 M/mcL (3.82-4.97); Red Cell Distribution Width 13.4 % (11.5-14.5); White Blood Count 6.6 K/mcL (4.3-11.1)
[2019-12-21 02:55] LABS: Calcium 7.6 mg/dL (8.6-10.3); Magnesium 1.9 mg/dL (1.6-2.6)
[2019-12-21] MEDS: *HR* Heparin 5,000 UNIT/ML VIAL SQ SCH ×2 (04:39→18:22)
[2019-12-21] MEDS ORDERED: 0.9 % Sodium Chloride 250 ML IVC PRN (07:00)
[2019-12-21] MEDS: Insulin LISPRO 300 UNITS/3 ML VIAL SQ SCH ×4 (08:00→19:40)
[2019-12-21] MEDS: Aspirin Enteric Coated 81 MG Tablet PO SCH (08:00)
[2019-12-21] MEDS: Sennosides/Docusate Sodium TABLET PO SCH (08:08)
[2019-12-21 08:39] LABS: INR 0.9; Prothrombin Time 9.8 Seconds (9.4-12.1)
[2019-12-21] MEDS: amLODIPine 5 MG TABLET PO SCH (08:48)
[2019-12-21 15:10] LABS: Thyroid Stimulating Hormone 3.471 mcIU/mL (0.340-5.600); Uric Acid 2.6 mg/dL (2.3-7.6)
[2019-12-21] MEDS: Insulin DETEMIR 100 UNIT/ML X5UNITS SQ SCH (19:49)
[2019-12-21] MEDS: Gabapentin 300 MG CAPSULE PO SCH (19:49)
[2019-12-21] MEDS: Nicotine 21 MG PATCH.TD24 TD SCH (21:24)
[2019-12-22 04:01] LABS: Hemoglobin 7.8 g/dL (11.5-15.4); Mean Corpuscular Hemoglobin 26.1 pg (28.0-33.3); Mean Platelet Volume 12.6 fL (9.4-12.4); Platelet Count 113 K/mcL (140-400); Red Blood Count 2.99 M/mcL (3.82-4.97); Red Cell Distribution Width 13.4 % (11.5-14.5); White Blood Count 4.9 K/mcL (4.3-11.1)
[2019-12-22 04:11] LABS: INR 0.9; Prothrombin Time 9.9 Seconds (9.4-12.1)
[2019-12-22 04:21] LABS: Albumin 2.2 g/dL (3.5-5.7); Calcium 7.3 mg/dL (8.6-10.3); Phosphorous 4.7 mg/dL (2.7-4.5); Potassium 4.4 mEq/L (3.5-5.1)
[2019-12-22] MEDS: *HR* Heparin 5,000 UNIT/ML VIAL SQ SCH ×2 (05:52→17:16)
[2019-12-22] MEDS ORDERED: Heparin 1,000 UNITS/500 mL 500 ML ONE (08:56)
[2019-12-22] MEDS: amLODIPine 5 MG TABLET PO SCH (09:08)
[2019-12-22] MEDS: Sennosides/Docusate Sodium TABLET PO SCH (09:08)
[2019-12-22] MEDS: Insulin LISPRO 300 UNITS/3 ML VIAL SQ SCH ×4 (09:08→20:45)
[2019-12-22] MEDS: Aspirin Enteric Coated 81 MG Tablet PO SCH (09:08)
[2019-12-22] MEDS ORDERED: CeFAZolin 2,000 MG/50 ML BAG IVPB ONE ×2 (09:20→11:00)
[2019-12-22] MEDS ORDERED: *HR* Midazolam HCl 5 MG/5 ML VIAL IVP ONE (09:20)
[2019-12-22] MEDS ORDERED: *HR* FentaNYL (PF) 100 MCG/2 ML VIAL IVP ONE (09:20)
[2019-12-22] MEDS ORDERED: 0.9 % Sodium Chloride 500 ML ONE (09:30)
[2019-12-22] MEDS ORDERED: *HR* Midazolam HCl 2 MG/2 ML VIAL ONE (09:39)
[2019-12-22] MEDS ORDERED: *HR* FentaNYL (PF) 100 MCG/2 ML VIAL ONE (09:39)
[2019-12-22] MEDS ORDERED: *HR* Midazolam HCl 2 MG/2 ML VIAL IVP ONE (10:00)
[2019-12-22] MEDS ORDERED: *HR* Heparin 5,000 UNIT/ML VIAL ONE (10:02)
[2019-12-22] MEDS: Insulin DETEMIR 100 UNIT/ML X5UNITS SQ SCH (20:45)
[2019-12-22] MEDS: Acetaminophen 325 MG TABLET PO PRN (23:14)
[2019-12-23] MEDS: Nicotine 21 MG PATCH.TD24 TD SCH (01:29)
[2019-12-23] MEDS: *HR* Heparin 5,000 UNIT/ML VIAL SQ SCH (06:34)
[2019-12-23] MEDS ORDERED: 0.9 % Sodium Chloride 2,000 ML ONE (06:56)
[2019-12-23] MEDS ORDERED: 0.9 % Sodium Chloride 250 ML IVC PRN (07:07)
[2019-12-23 07:36] LABS: Immature Granulocytes % 0.2 % (0-4); Monocytes % 8.9 %; Red Cell Distribution Width 13.5 % (11.5-14.5)
[2019-12-23 07:38] LABS: Basophils # 0.1 K/mcL (0.0-0.2); Basophils % 1.1 %; Eosinophils # 0.1 K/mcL (0.0-0.6); Eosinophils % 2.4 %; Hematocrit 27.6 % (35.3-44.9); Hemoglobin 8.4 g/dL (11.5-15.4); Immature Platelets 6.9 % (1.1-6.1); Lymphocytes # 1.6 K/mcL (0.6-4.6); Lymphocytes % 29.9 %; Mean Corpuscular HGB Conc 30.4 g/dL (31.6-35.5); Mean Corpuscular Hemoglobin 26.3 pg (28.0-33.3); Mean Corpuscular Volume 86.5 fL (83.0-100.0); Monocytes # 0.5 K/mcL (0.0-1.3); Neutrophils # 3.1 K/mcL (1.6-8.9); Platelet Count 114 K/mcL (140-400); Red Blood Count 3.19 M/mcL (3.82-4.97); Segmented Neutrophils % 57.5 %; White Blood Count 5.3 K/mcL (4.3-11.1)
[2019-12-23 07:48] LABS: Albumin 2.5 g/dL (3.5-5.7); Calcium 7.7 mg/dL (8.6-10.3); Phosphorous 5.4 mg/dL (2.7-4.5); Potassium 4.9 mEq/L (3.5-5.1)
[2019-12-23] MEDS: Aspirin Enteric Coated 81 MG Tablet PO SCH (09:00)
[2019-12-23] MEDS: Sennosides/Docusate Sodium TABLET PO SCH (09:00)
[2019-12-23] MEDS: amLODIPine 5 MG TABLET PO SCH ×2 (09:02→15:48)
[2019-12-23] MEDS: Insulin LISPRO 300 UNITS/3 ML VIAL SQ SCH ×3 (09:04→16:57)
[2019-12-23] MEDS ORDERED: *HR* Heparin 10,000 UNIT/10 ML VIAL IV PRN (09:30)
[2019-12-23 16:23] VITALS: BP 169/78
== END 2019-12-23 20:00 | disposition home or self-care (01) | DRG 469 ==
LOC: 2ANU 16:22 → EMEROOARM 16:22 → SUATTDRO 22:15 → 2ANU 12-15 00:05 → SUATTDRO 12-17 15:35
PROVIDERS: ADMIT Internal Medicine; ATTEND Internal Medicine
PROC: IRPERMA (2019-12-22 12:00)

== ENCOUNTER 2020-02-25 19:16 | Inpatient (IN) ==
[2020-02-25] MEDS ORDERED: Isovue-370 500 ML BOTTLE IVP ONE (19:29)
[2020-02-25 19:48] LABS: Hematocrit 38.7 % (35.3-44.9)
[2020-02-25 19:49] LABS: Hemoglobin 11.9 g/dL (11.5-15.4); Immature Platelets 6.4 % (1.1-6.1); Mean Corpuscular HGB Conc 30.7 g/dL (31.6-35.5); Mean Corpuscular Hemoglobin 25.7 pg (28.0-33.3); Mean Corpuscular Volume 83.6 fL (83.0-100.0); Platelet Count 107 K/mcL (140-400); Red Blood Count 4.63 M/mcL (3.82-4.97); Red Cell Distribution Width 15.6 % (11.5-14.5); White Blood Count 6.4 K/mcL (4.3-11.1)
[2020-02-25 20:03] LABS: Calcium 8.7 mg/dL (8.6-10.3); Potassium 3.8 mEq/L (3.5-5.1)
[2020-02-25 20:09] LABS: Troponin I 0.03 ng/mL (< 0.04)
[2020-02-25] MEDS ORDERED: Naloxone 0.4 MG/ML INJ IVP PRN (21:16)
[2020-02-25] MEDS ORDERED: Ondansetron ODT 4 MG TAB.RAPDIS SL PRN (21:16)
[2020-02-25 21:45] LABS: Albumin 3.1 g/dL (3.5-5.7); Albumin/Globulin Ratio 1.1 (1.1-2.2); Bilirubin,Direct 0.1 mg/dL (0.0-0.2); Bilirubin,Indirect 0.3 mg/dL (0.0-1.0); Bilirubin,Total 0.4 mg/dL (0.3-1.0); Globulin 2.9 g/dL (2.4-3.5)
[2020-02-25 22:36] LABS: Bilirubin,Urine Negative (Negative); Blood,Urine Small (Negative); Clarity,Urine Clear (Clear); Color,Urine Yellow (Yellow); Glucose,Urine (UA) 500 mg/dL (Normal); Ketones,Urine Negative (Negative); Leukocyte Esterase,Urine Negative (Negative); Nitrite,Urine Negative (Negative); PH,Urine 7.5 pH Units (5.0-8.0); Protein,Urine >=300 mg/dL (Neg-Trace); Specific Gravity,Urine 1.025 (1.010-1.025); Urobilinogen,Urine Normal (Normal)
[2020-02-25 22:39] LABS: Bacteria,Urine Moderate per hpf (None-Few); Hyaline Casts,Urine None Seen per lpf (None-Few); Squamous Epithelial Cell,Urine Many per lpf (None-Few)
[2020-02-26 01:46] LABS: Hematocrit 39.5 % (35.3-44.9); Hemoglobin 11.8 g/dL (11.5-15.4); Immature Platelets 9.7 % (1.1-6.1); Mean Corpuscular HGB Conc 29.9 g/dL (31.6-35.5); Mean Corpuscular Hemoglobin 25.1 pg (28.0-33.3); Mean Corpuscular Volume 83.9 fL (83.0-100.0); Red Blood Count 4.71 M/mcL (3.82-4.97); Red Cell Distribution Width 15.7 % (11.5-14.5); White Blood Count 6.9 K/mcL (4.3-11.1)
[2020-02-26 01:49] LABS: Platelet Count 84 K/mcL (140-400)
[2020-02-26 01:59] LABS: BUN/Creatinine Ratio 8 (6-26); Blood Urea Nitrogen 23 mg/dL (8-23); Calcium 8.7 mg/dL (8.6-10.3); Carbon Dioxide 26 mEq/L (23-29); Chloride 101 mEq/L (98-107); Glucose 146 mg/dL (70-105); Osmolality,Calculated 286 (280-300); Potassium 4.3 mEq/L (3.5-5.1); Sodium 135 mEq/L (136-145); eGFR For African Americans 20 (> 60); eGFR For Non-African Americans 16 (> 60)
[2020-02-26] MEDS ORDERED: lisinopriL 5 MG TABLET PO SCH (09:00)
[2020-02-26] MEDS: Gabapentin 300 MG CAPSULE PO SCH (12:28)
[2020-02-26] MEDS: amLODIPine 5 MG TABLET PO SCH (12:29)
[2020-02-26] MEDS ORDERED: Aspirin 325 MG TABLET PO ONE (13:53)
[2020-02-26 14:05] LABS: Amphetamine Screen,Urine Negative ng/mL (Cutoff=1000); Barbiturate Screen,Urine Negative ng/mL (Cutoff=200); Benzodiazepines Screen,Urine Negative ng/mL (Cutoff=200); Cannabinoid Screen,Urine Negative ng/mL (Cutoff = 50); Cocaine Screen,Urine Negative ng/mL (Cutoff= 300); Opiate Screen,Urine Negative ng/mL (Cutoff=300); Phencyclidine Screen,Urine Negative ng/mL (Cutoff=25)
[2020-02-26 14:57] LABS: C-Reactive Protein < 5 mg/L (Less than 10)
[2020-02-27 02:39] LABS: INR 0.9; Prothrombin Time 10.2 Seconds (9.4-12.1)
[2020-02-27 02:49] LABS: Hematocrit 33.4 % (35.3-44.9); Hemoglobin 10.2 g/dL (11.5-15.4); Immature Platelets 4.9 % (1.1-6.1); Mean Corpuscular HGB Conc 30.5 g/dL (31.6-35.5); Mean Corpuscular Hemoglobin 25.4 pg (28.0-33.3); Mean Corpuscular Volume 83.3 fL (83.0-100.0); Mean Platelet Volume 11.6 fL (9.4-12.4); Red Blood Count 4.01 M/mcL (3.82-4.97); Red Cell Distribution Width 15.7 % (11.5-14.5); White Blood Count 7.4 K/mcL (4.3-11.1)
[2020-02-27 02:51] LABS: Calcium 8.1 mg/dL (8.6-10.3); Potassium 4.4 mEq/L (3.5-5.1)
[2020-02-27] MEDS: amLODIPine 5 MG TABLET PO SCH (08:06)
[2020-02-27] MEDS: Aspirin 81 MG TAB.CHEW PO SCH (08:07)
[2020-02-27] MEDS: Gabapentin 300 MG CAPSULE PO SCH (08:07)
[2020-02-27] MEDS ORDERED: Insulin DETEMIR 100 UNIT/ML X5UNITS SQ ONE (13:26)
[2020-02-27] MEDS ORDERED: *HR* Dextrose 50 % in Water (Syg) 50 ML SYRINGE IVP PRN (13:29)
[2020-02-27] MEDS ORDERED: D5% in Water 1,000 ML IVC PRN (13:29)
[2020-02-27] MEDS ORDERED: Dextrose Gel 15 GM/37.5 ML TUBE PO PRN ×2 (13:29)
[2020-02-27] MEDS: Insulin DETEMIR 100 UNIT/ML X5UNITS SQ SCH (14:45)
[2020-02-27] MEDS: Insulin LISPRO 300 UNITS/3 ML VIAL SQ SCH ×2 (17:21→21:36)
[2020-02-27] MEDS ORDERED: Insulin DETEMIR 100 UNIT/ML X5UNITS SQ SCH (21:00)
[2020-02-28 02:45] LABS: Calcium 8.1 mg/dL (8.6-10.3); Potassium 4.4 mEq/L (3.5-5.1)
[2020-02-28 02:51] LABS: % Iron Saturation 17 % (15-50); Iron 46 mcg/dL (50-170); Transferrin 191 mg/dL (203-362)
[2020-02-28 03:03] LABS: Ferritin 182 ng/mL (10-120)
[2020-02-28] MEDS: Gabapentin 300 MG CAPSULE PO SCH (08:14)
[2020-02-28] MEDS: amLODIPine 5 MG TABLET PO SCH (08:14)
[2020-02-28] MEDS: Aspirin 81 MG TAB.CHEW PO SCH (08:14)
[2020-02-28] MEDS: Insulin DETEMIR 100 UNIT/ML X5UNITS SQ SCH (08:18)
[2020-02-28] MEDS: Insulin LISPRO 300 UNITS/3 ML VIAL SQ SCH ×4 (08:18→21:45)
[2020-02-28] MEDS ORDERED: 0.9 % Sodium Chloride 1,000 ML IVC SCH (10:00)
[2020-02-28] MEDS ORDERED: *HR* FentaNYL PATCH 50 MCG PATCH TD SCH (18:30)
[2020-02-29 03:00] LABS: Potassium 5.3 mEq/L (3.5-5.1)
[2020-02-29] MEDS ORDERED: 0.9 % Sodium Chloride 250 ML IVC PRN (07:54)
[2020-02-29] MEDS ORDERED: *HR* Heparin 10,000 UNIT/10 ML VIAL IV PRN (07:54)
[2020-02-29] MEDS ORDERED: 0.9 % Sodium Chloride 1,000 ML PRIME SCH (08:00)
[2020-02-29] MEDS: Insulin LISPRO 300 UNITS/3 ML VIAL SQ SCH ×4 (08:15→20:42)
[2020-02-29] MEDS: Aspirin 81 MG TAB.CHEW PO SCH (08:15)
[2020-02-29] MEDS: amLODIPine 5 MG TABLET PO SCH (08:15)
[2020-02-29] MEDS: Gabapentin 300 MG CAPSULE PO SCH (08:15)
[2020-02-29] MEDS: Insulin DETEMIR 100 UNIT/ML X5UNITS SQ SCH (13:08)
[2020-02-29 18:36] LABS: APTT (LE Anticoag) 36 sec (32-48); Diluted Russell Viper Venom 31 sec (33-44); PT (LE-Anticoag) 12.3 sec (12.0-15.5)
[2020-03-01 02:18] LABS: Calcium 7.2 mg/dL (8.6-10.3); Potassium 4.7 mEq/L (3.5-5.1)
[2020-03-01] MEDS ORDERED: *HR* FentaNYL (PF) 100 MCG/2 ML VIAL IVP PRN (08:15)
[2020-03-01] MEDS ORDERED: Lidocaine Viscous Oral Soln 15 ML SOLUTION MM PRN (08:15)
[2020-03-01] MEDS ORDERED: 0.9 % Sodium Chloride 500 ML IVC ONE (08:15)
[2020-03-01] MEDS: *HR* Midazolam HCl 5 MG/5 ML VIAL IVP PRN ×2 (08:45→08:50)
[2020-03-01] MEDS ORDERED: amLODIPine 5 MG TABLET PO SCH (09:00)
[2020-03-01 11:24] VITALS: BP 172/79
[2020-03-01] MEDS: Aspirin 81 MG TAB.CHEW PO SCH (14:05)
[2020-03-01] MEDS: Gabapentin 300 MG CAPSULE PO SCH (14:05)
[2020-03-01] MEDS: Insulin LISPRO 300 UNITS/3 ML VIAL SQ SCH ×2 (14:05→14:06)
== END 2020-03-01 15:33 | disposition home or self-care (01) ==
LOC: 2ANU 19:16 → EMEROOARM 19:16 → SUATTDRO 21:34 → 2ANU 22:28
PROVIDERS: ADMIT Family Medicine; ATTEND Student in an Organized Health Care Education/Training Program

== ENCOUNTER 2020-07-04 14:34 | Inpatient (IN) ==
[2020-07-04 15:55] LABS: Monocytes % 8.6 %
[2020-07-04 15:57] LABS: Basophils # 0.1 K/mcL (0.0-0.2); Basophils % 0.9 %; Eosinophils # 0.2 K/mcL (0.0-0.6); Eosinophils % 2.7 %; Hemoglobin 14.3 g/dL (11.5-15.4); Immature Granulocytes % 0.4 % (0-4); Immature Platelets 5.6 % (1.1-6.1); Lymphocytes # 0.9 K/mcL (0.6-4.6); Lymphocytes % 15.8 %; Mean Corpuscular HGB Conc 31.1 g/dL (31.6-35.5); Mean Corpuscular Hemoglobin 25.7 pg (28.0-33.3); Mean Corpuscular Volume 82.6 fL (83.0-100.0); Mean Platelet Volume 10.4 fL (9.4-12.4); Monocytes # 0.5 K/mcL (0.0-1.3); Neutrophils # 3.9 K/mcL (1.6-8.9); Platelet Count 111 K/mcL (140-400); Red Blood Count 5.57 M/mcL (3.82-4.97); Red Cell Distribution Width 18.3 % (11.5-14.5); Segmented Neutrophils % 71.6 %; White Blood Count 5.5 K/mcL (4.3-11.1)
[2020-07-04 16:02] LABS: Prothrombin Time 10.9 Seconds (9.4-12.1)
[2020-07-04 16:05] LABS: Activated Partial Thrombo Time 38.9 Seconds (26.0-36.0)
[2020-07-04 16:17] LABS: Calcium 8.8 mg/dL (8.6-10.3); Potassium 3.2 mEq/L (3.5-5.1); Troponin I 0.03 ng/mL (< 0.04)
[2020-07-04 16:45] LABS: Large Platelets Present (Not Present); Platelet Estimate Slight Decrease (Normal)
[2020-07-04 16:46] LABS: Anisocytosis 1+ (Not Present)
[2020-07-04] MEDS ORDERED: *HR* Metoprolol 5 MG/5 ML VIAL IVP ONE (16:47)
[2020-07-04] MEDS ORDERED: Naloxone 0.4 MG/ML INJ IVP PRN (19:40)
[2020-07-04] MEDS ORDERED: Ondansetron 4 MG/2 ML VIAL IVP PRN (19:40)
[2020-07-04] MEDS ORDERED: *HR* Dextrose 50 % in Water (Vial) 50 ML VIAL IVP PRN (19:45)
[2020-07-04] MEDS ORDERED: D5% in Water 1,000 ML IVC PRN (19:45)
[2020-07-04] MEDS ORDERED: Dextrose Gel 15 GM/37.5 ML TUBE PO PRN ×2 (19:45)
[2020-07-04] MEDS: *HR* Heparin 5,000 UNIT/ML VIAL SQ SCH (20:58)
[2020-07-04] MEDS ORDERED: *HR* HYDROcodone/Acet 5/325 mg TABLET PO PRN (21:35)
[2020-07-04] MEDS: *HR* HYDROcodone/Acet 10/325 mg TABLET PO PRN (22:28)
[2020-07-04] MEDS: Insulin LISPRO 300 UNITS/3 ML VIAL SQ SCH (22:28)
[2020-07-04] MEDS: Insulin DETEMIR 100 UNIT/ML X5UNITS SQ SCH (22:30)
[2020-07-05 02:11] LABS: Prothrombin Time 11.1 Seconds (9.4-12.1)
[2020-07-05 02:18] LABS: Basophils # 0.1 K/mcL (0.0-0.2); Basophils % 0.8 %; Eosinophils # 0.1 K/mcL (0.0-0.6); Eosinophils % 2.2 %; Hematocrit 44.7 % (35.3-44.9); Hemoglobin 14.2 g/dL (11.5-15.4); Immature Granulocytes % 0.2 % (0-4); Immature Platelets 6.6 % (1.1-6.1); Lymphocytes # 1.1 K/mcL (0.6-4.6); Lymphocytes % 17.4 %; Mean Corpuscular HGB Conc 31.8 g/dL (31.6-35.5); Mean Corpuscular Hemoglobin 26.3 pg (28.0-33.3); Mean Corpuscular Volume 82.9 fL (83.0-100.0); Monocytes # 0.5 K/mcL (0.0-1.3); Neutrophils # 4.5 K/mcL (1.6-8.9); Platelet Count 123 K/mcL (140-400); Red Blood Count 5.39 M/mcL (3.82-4.97); Red Cell Distribution Width 18.1 % (11.5-14.5); Segmented Neutrophils % 71.4 %; White Blood Count 6.3 K/mcL (4.3-11.1)
[2020-07-05 02:46] LABS: Albumin 3.8 g/dL (3.5-5.7); Albumin/Globulin Ratio 1.2 (1.1-2.2); Bilirubin,Total 0.8 mg/dL (0.3-1.0); Calcium 8.8 mg/dL (8.6-10.3); Globulin 3.2 g/dL (2.4-3.5); Magnesium 1.8 mg/dL (1.6-2.6); Phosphorous 2.6 mg/dL (2.7-4.5); Potassium 3.9 mEq/L (3.5-5.1); Troponin I 0.04 ng/mL (< 0.04)
[2020-07-05 03:03] LABS: Platelet Estimate Slight Decrease (Normal)
[2020-07-05] MEDS: *HR* Heparin 5,000 UNIT/ML VIAL SQ SCH ×3 (05:16→20:37)
[2020-07-05] MEDS: Insulin LISPRO 300 UNITS/3 ML VIAL SQ SCH ×4 (08:18→20:33)
[2020-07-05] MEDS: Aspirin 81 MG TAB.CHEW PO SCH (08:19)
[2020-07-05] MEDS ORDERED: 0.9 % Sodium Chloride 250 ML IVC PRN (08:40)
[2020-07-05] MEDS ORDERED: *HR* Heparin 10,000 UNIT/10 ML VIAL IV PRN ×2 (08:40)
[2020-07-05] MEDS ORDERED: 0.9 % Sodium Chloride 1,000 ML PRIME SCH (08:45)
[2020-07-05] MEDS ORDERED: lisinopriL 10 MG TABLET PO SCH (12:30)
[2020-07-05] MEDS ORDERED: lisinopriL 20 MG TABLET PO SCH (13:00)
[2020-07-05] MEDS: Calcium Acetate 667 MG CAPSULE PO SCH (16:45)
[2020-07-05] MEDS: Insulin DETEMIR 100 UNIT/ML X5UNITS SQ SCH (20:38)
[2020-07-06 03:19] LABS: Basophils % 0.6 %
[2020-07-06 03:22] LABS: Eosinophils # 0.1 K/mcL (0.0-0.6); Eosinophils % 1.8 %; Hematocrit 39.3 % (35.3-44.9); Hemoglobin 12.4 g/dL (11.5-15.4); Immature Granulocytes % 0.2 % (0-4); Lymphocytes # 1.8 K/mcL (0.6-4.6); Lymphocytes % 27.7 %; Mean Corpuscular HGB Conc 31.6 g/dL (31.6-35.5); Mean Corpuscular Hemoglobin 26.2 pg (28.0-33.3); Mean Corpuscular Volume 83.1 fL (83.0-100.0); Monocytes % 14.8 %; Neutrophils # 3.6 K/mcL (1.6-8.9); Platelet Count 111 K/mcL (140-400); Red Blood Count 4.73 M/mcL (3.82-4.97); Segmented Neutrophils % 54.9 %; White Blood Count 6.5 K/mcL (4.3-11.1)
[2020-07-06] MEDS: *HR* Heparin 5,000 UNIT/ML VIAL SQ SCH ×3 (05:27→21:18)
[2020-07-06] MEDS: Insulin LISPRO 300 UNITS/3 ML VIAL SQ SCH ×4 (06:57→21:18)
[2020-07-06] MEDS ORDERED: *HR* Dextrose 50 % in Water (Vial) 50 ML VIAL IVP ONE (08:14)
[2020-07-06] MEDS ORDERED: D10% in Water 500 ML IVC SCH (08:30)
[2020-07-06 08:45] LABS: Calcium 8.1 mg/dL (8.6-10.3); Potassium 3.2 mEq/L (3.5-5.1)
[2020-07-06] MEDS ORDERED: lisinopriL 10 MG TABLET PO SCH (09:00)
[2020-07-06] MEDS: Calcium Acetate 667 MG CAPSULE PO SCH ×3 (10:07→16:43)
[2020-07-06] MEDS: Aspirin 81 MG TAB.CHEW PO SCH (10:07)
[2020-07-06] MEDS: amLODIPine 5 MG TABLET PO SCH (10:07)
[2020-07-06] MEDS: lisinopriL 20 MG TABLET PO SCH (10:08)
[2020-07-06 10:38] LABS: Magnesium 1.9 mg/dL (1.6-2.6); Phosphorous 3.1 mg/dL (2.7-4.5)
[2020-07-06 10:45] LABS: VBG Ionized Calcium 1.02 mmol/L (1.15-1.35)
[2020-07-06] MEDS: D10% in Water 500 ML IVC SCH ×2 (21:17→21:18)
[2020-07-07 01:20] LABS: Eosinophils % 1.4 %; Hemoglobin 11.6 g/dL (11.5-15.4); Immature Granulocytes % 0.2 % (0-4); Mean Corpuscular HGB Conc 31.4 g/dL (31.6-35.5); Red Cell Distribution Width 18.1 % (11.5-14.5)
[2020-07-07 01:22] LABS: Basophils % 0.7 %; Eosinophils # 0.1 K/mcL (0.0-0.6); Hematocrit 36.9 % (35.3-44.9); Immature Platelets 7.8 % (1.1-6.1); Lymphocytes # 1.5 K/mcL (0.6-4.6); Lymphocytes % 27.5 %; Mean Corpuscular Hemoglobin 25.5 pg (28.0-33.3); Mean Corpuscular Volume 81.1 fL (83.0-100.0); Monocytes # 0.6 K/mcL (0.0-1.3); Monocytes % 11.4 %; Neutrophils # 3.3 K/mcL (1.6-8.9); Platelet Count 98 K/mcL (140-400); Red Blood Count 4.55 M/mcL (3.82-4.97); Segmented Neutrophils % 58.8 %; White Blood Count 5.6 K/mcL (4.3-11.1)
[2020-07-07 01:33] LABS: Magnesium 1.8 mg/dL (1.6-2.6); Phosphorous 2.8 mg/dL (2.7-4.5); Potassium 3.8 mEq/L (3.5-5.1)
[2020-07-07] MEDS: D10% in Water 500 ML IVC SCH ×2 (04:11→04:29)
[2020-07-07] MEDS: *HR* Heparin 5,000 UNIT/ML VIAL SQ SCH ×3 (04:29→20:48)
[2020-07-07] MEDS: Calcium Acetate 667 MG CAPSULE PO SCH ×3 (08:50→16:40)
[2020-07-07] MEDS: amLODIPine 5 MG TABLET PO SCH (08:51)
[2020-07-07] MEDS: lisinopriL 20 MG TABLET PO SCH (08:52)
[2020-07-07] MEDS: Aspirin 81 MG TAB.CHEW PO SCH (08:52)
[2020-07-07] MEDS: Insulin LISPRO 300 UNITS/3 ML VIAL SQ SCH ×4 (10:22→20:49)
[2020-07-07] MEDS: Nicotine 21 MG PATCH.TD24 TD SCH (20:48)
[2020-07-07 22:18] LABS: Adenovirus Not Detected (Not Detect); Coronavirus 229E Not Detected (Not Detect); Coronavirus HKU1 Not Detected (Not Detect); Coronavirus NL63 Not Detected (Not Detect); Coronavirus OC43 Not Detected (Not Detect)
[2020-07-07 22:19] LABS: Bordetella Pertussis Not Detected (Not Detect); Chlamydophila pneumoniae Not Detected (Not Detect); Human Metapneumovirus Not Detected (Not Detect); Human Rhinovirus/Enterovirus Not Detected (Not Detect); Influenza A Subtype 2009 H1 Not Detected (Not Detect); Influenza B Not Detected (Not Detect); Mycoplasma pneumoniae Not Detected (Not Detect); Parainfluenza Virus 1 Not Detected (Not Detect); Parainfluenza Virus 2 Not Detected (Not Detect); Parainfluenza Virus 3 Not Detected (Not Detect); Parainfluenza Virus 4 Not Detected (Not Detect); Respiratory Syncytial Virus Not Detected (Not Detect); SARS-CoV-2 Not Detected (Not Detect)
[2020-07-08] MEDS: *HR* HYDROcodone/Acet 10/325 mg TABLET PO PRN (00:15)
[2020-07-08 05:24] LABS: Hematocrit 35.6 % (35.3-44.9); Hemoglobin 11.2 g/dL (11.5-15.4); Immature Platelets 8.6 % (1.1-6.1); Mean Corpuscular HGB Conc 31.5 g/dL (31.6-35.5); Mean Corpuscular Hemoglobin 25.5 pg (28.0-33.3); Mean Corpuscular Volume 81.1 fL (83.0-100.0); Platelet Count 84 K/mcL (140-400); Red Blood Count 4.39 M/mcL (3.82-4.97); Red Cell Distribution Width 17.6 % (11.5-14.5); White Blood Count 5.3 K/mcL (4.3-11.1)
[2020-07-08] MEDS: *HR* Heparin 5,000 UNIT/ML VIAL SQ SCH ×2 (05:33→17:19)
[2020-07-08 05:38] LABS: Calcium 8.2 mg/dL (8.6-10.3); Potassium 3.8 mEq/L (3.5-5.1)
[2020-07-08] MEDS ORDERED: 0.9 % Sodium Chloride 250 ML IVC PRN (08:02)
[2020-07-08] MEDS ORDERED: *HR* Heparin 10,000 UNIT/10 ML VIAL IV PRN ×2 (08:02)
[2020-07-08] MEDS: Calcium Acetate 667 MG CAPSULE PO SCH ×3 (10:08→17:19)
[2020-07-08] MEDS: lisinopriL 20 MG TABLET PO SCH (10:10)
[2020-07-08] MEDS: Insulin LISPRO 300 UNITS/3 ML VIAL SQ SCH ×3 (10:10→17:19)
[2020-07-08] MEDS: Aspirin 81 MG TAB.CHEW PO SCH (17:20)
[2020-07-08] MEDS: amLODIPine 5 MG TABLET PO SCH (17:21)
[2020-07-08] MEDS: Nicotine 21 MG PATCH.TD24 TD SCH (17:23)
[2020-07-08] MEDS ORDERED: amLODIPine 5 MG TABLET PO ONE (20:30)
[2020-07-08 21:31] VITALS: BP 164/86
== END 2020-07-08 22:16 | DRG 304 ==
LOC: 2ANU 14:34 → EMEROOARM 14:34 → SUATTDRO 19:30 → 2ANU 20:23
PROVIDERS: ADMIT Family Medicine; ATTEND Internal Medicine

== ENCOUNTER 2020-10-18 20:05 | Inpatient (IN) ==
[2020-10-18] MEDS ORDERED: Isovue-370 500 ML BOTTLE IVP ONE (20:37)
[2020-10-18] MEDS ORDERED: Piperacillin/Tazobactam 3.375 GM in 0.9 % Sodium Chloride Mini Bag 100 ML IVPB ONE (20:37)
[2020-10-18] MEDS ORDERED: Vancomycin 1,250 MG/262.5 ML IV.SOLN IVPB ONE (21:00)
[2020-10-18 22:16] LABS: Eosinophils % 0.2 %
[2020-10-18 22:18] LABS: Immature Platelets 2.6 % (1.1-6.1); Monocytes % 6.8 %
[2020-10-18 22:19] LABS: VBG HCO3 27 mEq/L (21-27); VBG PCO2 33 mmHg (41-51); VBG PH 7.51 pH Units (7.32-7.42); VBG PO2 162 mmHg (25-50)
[2020-10-18 22:29] LABS: Basophils % 0.6 %; Hematocrit 31.4 % (35.3-44.9); Hemoglobin 9.9 g/dL (11.5-15.4); Immature Granulocytes % 0.6 % (0-4); Lymphocytes # 0.4 K/mcL (0.6-4.6); Lymphocytes % 7.9 %; Mean Corpuscular HGB Conc 31.5 g/dL (31.6-35.5); Mean Corpuscular Hemoglobin 28.2 pg (28.0-33.3); Mean Corpuscular Volume 89.5 fL (83.0-100.0); Mean Platelet Volume 10.5 fL (9.4-12.4); Monocytes # 0.3 K/mcL (0.0-1.3); Neutrophils # 3.9 K/mcL (1.6-8.9); Red Blood Count 3.51 M/mcL (3.82-4.97); Red Cell Distribution Width 15.8 % (11.5-14.5); Segmented Neutrophils % 83.9 %; White Blood Count 4.7 K/mcL (4.3-11.1)
[2020-10-18 22:30] LABS: Platelet Count 82 K/mcL (140-400)
[2020-10-18 22:34] LABS: Bacteria,Urine Few per hpf (None-Few); Bilirubin,Urine Negative (Negative); Blood,Urine Small (Negative); Clarity,Urine Clear (Clear); Color,Urine Yellow (Yellow); Glucose,Urine (UA) 300 mg/dL (Normal); Hyaline Casts,Urine Moderate per lpf (None Seen); Ketones,Urine Negative (Negative); Leukocyte Esterase,Urine Negative (Negative); Mucus,Urine Few per lpf (None-Few); Nitrite,Urine Negative (Negative); Protein,Urine >=600 mg/dL (Neg-Trace); Specific Gravity,Urine 1.021 (1.010-1.025); Squamous Epithelial Cell,Urine Few per hpf (None-Few); Urobilinogen,Urine Normal (Normal); WBC,Urine 0-3 per hpf (0-3)
[2020-10-18 22:37] LABS: Calcium 7.7 mg/dL (8.6-10.3); Potassium 4.4 mEq/L (3.5-5.1)
[2020-10-18 22:41] LABS: Troponin I 0.12 ng/mL (< 0.04)
[2020-10-18] MEDS ORDERED: Furosemide 40 MG/4 ML VIAL IVP ONE (22:51)
[2020-10-18] MEDS ORDERED: Nitroglycerin 0.4 MG TAB.SUBL SL STA (22:52)
[2020-10-19] MEDS ORDERED: *HR* Heparin 5,000 UNIT/ML VIAL IVP ONE (00:18)
[2020-10-19] MEDS ORDERED: *HR* Heparin 5,000 UNIT/ML VIAL IVP PRN ×2 (00:18)
[2020-10-19] MEDS ORDERED: Acetaminophen 325 MG TABLET PO PRN (01:08)
[2020-10-19] MEDS ORDERED: Naloxone 0.4 MG/ML INJ IVP PRN (01:08)
[2020-10-19] MEDS ORDERED: Ondansetron ODT 4 MG TAB.RAPDIS SL PRN (01:08)
[2020-10-19] MEDS: Heparin 25,000UNIT/250ML 1/2NS 25,000 UNIT/250 ML IV.SOLN IVC SCH ×2 (01:14→23:25)
[2020-10-19] MEDS ORDERED: Calcium Gluconate 1gm/50mL 1 GM/50 ML BAG IVPB ONE (01:23)
[2020-10-19] MEDS ORDERED: Vancomycin 1 EACH in 0.9 % Sodium Chloride 250 ML IVPB PRN (02:00)
[2020-10-19 04:44] LABS: Basophils % 0.5 %; Eosinophils % 0.3 %; Hemoglobin 8.8 g/dL (11.5-15.4); Immature Granulocytes % 0.3 % (0-4); Red Cell Distribution Width 15.7 % (11.5-14.5)
[2020-10-19 04:46] LABS: Hematocrit 28.6 % (35.3-44.9); Immature Platelets 3.7 % (1.1-6.1); Lymphocytes # 0.7 K/mcL (0.6-4.6); Lymphocytes % 18.8 %; Mean Corpuscular HGB Conc 30.8 g/dL (31.6-35.5); Mean Corpuscular Hemoglobin 27.6 pg (28.0-33.3); Mean Corpuscular Volume 89.7 fL (83.0-100.0); Mean Platelet Volume 12.4 fL (9.4-12.4); Monocytes # 0.3 K/mcL (0.0-1.3); Monocytes % 7.3 %; Neutrophils # 2.8 K/mcL (1.6-8.9); Red Blood Count 3.19 M/mcL (3.82-4.97); Segmented Neutrophils % 72.8 %; White Blood Count 3.8 K/mcL (4.3-11.1)
[2020-10-19 04:49] LABS: Platelet Count 77 K/mcL (140-400)
[2020-10-19 05:07] LABS: Troponin I 0.14 ng/mL (< 0.04)
[2020-10-19 05:20] LABS: Albumin/Globulin Ratio 1.2 (1.1-2.2); Bilirubin,Total 0.6 mg/dL (0.3-1.0); Calcium 7.3 mg/dL (8.6-10.3); Globulin 2.6 g/dL (2.4-3.5); Magnesium 1.9 mg/dL (1.6-2.6); Phosphorous 4.5 mg/dL (2.7-4.5); Potassium 4.2 mEq/L (3.5-5.1); Total Protein 5.6 g/dL (6.4-8.9)
[2020-10-19] MEDS ORDERED: Perflutren Lipid Microsphere 1.3 ML in 0.9 % Sodium Chloride 8.7 ML IVP PRN (06:18)
[2020-10-19] MEDS ORDERED: *HR* Dextrose 50 % in Water (Vial) 50 ML VIAL IVP PRN (06:41)
[2020-10-19] MEDS ORDERED: Dextrose Gel 15 GM/37.5 ML TUBE PO PRN ×2 (06:41)
[2020-10-19] MEDS ORDERED: D5% in Water 1,000 ML IVC PRN (06:41)
[2020-10-19] MEDS: Piperacillin/Tazobactam 3.375 GM in 0.9 % Sodium Chloride Mini Bag 100 ML IVPB SCH ×2 (07:57→23:21)
[2020-10-19] MEDS: Gabapentin 300 MG CAPSULE PO SCH ×2 (07:59→20:57)
[2020-10-19] MEDS: Dexamethasone 4 MG/ML VIAL IVP SCH (07:59)
[2020-10-19] MEDS: Aspirin 81 MG TAB.CHEW PO SCH (07:59)
[2020-10-19] MEDS ORDERED: Piperacillin/Tazobactam 3.375 GM in 0.9 % Sodium Chloride Mini Bag 100 ML IVPB SCH (08:00)
[2020-10-19] MEDS ORDERED: 0.9 % Sodium Chloride 250 ML IVC PRN (08:07)
[2020-10-19] MEDS ORDERED: 0.9 % Sodium Chloride 1,000 ML PRIME SCH (08:15)
[2020-10-19] MEDS: Insulin DETEMIR 100 UNIT/ML X5UNITS SQ SCH (09:00)
[2020-10-19] MEDS: Insulin LISPRO 300 UNITS/3 ML VIAL SQ SCH ×5 (09:00→21:00)
[2020-10-19] MEDS ORDERED: amLODIPine 5 MG TABLET PO SCH (09:00)
[2020-10-19 10:51] LABS: Heparin anti-factor XA UFH 0.68 IU/mL (0.30-0.70)
[2020-10-19 10:52] LABS: INR 1.2; Prothrombin Time 13.3 Seconds (9.4-12.1)
[2020-10-19 11:17] LABS: Activated Partial Thrombo Time 162.7 Seconds (26.0-36.0)
[2020-10-19] MEDS ORDERED: *HR* Heparin 10,000 UNIT/10 ML VIAL IV PRN (14:55)
[2020-10-19] MEDS ORDERED: Famotidine 20 MG TABLET PO SCH (16:30)
[2020-10-19] MEDS ORDERED: Vancomycin 500 MG in 0.9 % Sodium Chloride Mini Bag 100 ML IVPB ONE ×2 (18:00→21:00)
[2020-10-19] MEDS: Famotidine 20 MG TABLET PO SCH (21:05)
[2020-10-19 21:21] LABS: Adenovirus Not Detected (Not Detect); Bordetella Pertussis Not Detected (Not Detect); Chlamydophila pneumoniae Not Detected (Not Detect); Coronavirus 229E Not Detected (Not Detect); Coronavirus HKU1 Not Detected (Not Detect); Coronavirus NL63 Not Detected (Not Detect); Coronavirus OC43 Not Detected (Not Detect); Human Metapneumovirus Not Detected (Not Detect); Human Rhinovirus/Enterovirus Not Detected (Not Detect); Influenza A Subtype 2009 H1 Not Detected (Not Detect); Influenza B Not Detected (Not Detect); Mycoplasma pneumoniae Not Detected (Not Detect); Parainfluenza Virus 1 Not Detected (Not Detect); Parainfluenza Virus 2 Not Detected (Not Detect); Parainfluenza Virus 3 Not Detected (Not Detect); Parainfluenza Virus 4 Not Detected (Not Detect); Respiratory Syncytial Virus Not Detected (Not Detect); SARS-CoV-2 DETECTED (Not Detect)
[2020-10-20 05:14] LABS: Hemoglobin 9.2 g/dL (11.5-15.4); Red Cell Distribution Width 15.8 % (11.5-14.5)
[2020-10-20 05:16] LABS: Basophils % 0.8 %; Hematocrit 30.7 % (35.3-44.9); Immature Granulocytes % 0.5 % (0-4); Immature Platelets 5.6 % (1.1-6.1); Lymphocytes # 0.8 K/mcL (0.6-4.6); Lymphocytes % 20.3 %; Mean Corpuscular Hemoglobin 26.7 pg (28.0-33.3); Mean Corpuscular Volume 89.2 fL (83.0-100.0); Monocytes # 0.4 K/mcL (0.0-1.3); Monocytes % 11.3 %; Neutrophils # 2.6 K/mcL (1.6-8.9); Red Blood Count 3.44 M/mcL (3.82-4.97); Segmented Neutrophils % 67.1 %; White Blood Count 3.8 K/mcL (4.3-11.1)
[2020-10-20 05:28] LABS: Platelet Count 78 K/mcL (140-400)
[2020-10-20 05:30] LABS: Calcium 7.8 mg/dL (8.6-10.3); Magnesium 1.9 mg/dL (1.6-2.6)
[2020-10-20 05:56] LABS: Estimated Average Glucose 117 mg/dl; Hemoglobin A1C 5.7 %
[2020-10-20] MEDS: Aspirin 81 MG TAB.CHEW PO SCH (08:47)
[2020-10-20] MEDS: carvediloL 6.25 MG TABLET PO SCH ×2 (08:47→16:45)
[2020-10-20] MEDS: NIFEdipine XL (24 HR) 60 MG TAB.ER.24 PO SCH (08:48)
[2020-10-20] MEDS: Gabapentin 300 MG CAPSULE PO SCH ×2 (08:48→21:51)
[2020-10-20] MEDS: Dexamethasone 4 MG/ML VIAL IVP SCH (08:48)
[2020-10-20] MEDS: Piperacillin/Tazobactam 3.375 GM in 0.9 % Sodium Chloride Mini Bag 100 ML IVPB SCH (08:50)
[2020-10-20] MEDS: Insulin LISPRO 300 UNITS/3 ML VIAL SQ SCH ×4 (08:51→21:34)
[2020-10-20] MEDS ORDERED: Famotidine 20 MG TABLET PO SCH (09:00)
[2020-10-20] MEDS: Insulin DETEMIR 100 UNIT/ML X5UNITS SQ SCH (09:36)
[2020-10-20 09:40] LABS: Heparin anti-factor XA UFH 0.73 IU/mL (0.30-0.70)
[2020-10-20 09:58] LABS: Activated Partial Thrombo Time 216.8 Seconds (26.0-36.0)
[2020-10-20] MEDS: Doxycycline 100 MG CAPSULE PO SCH (21:51)
[2020-10-20] MEDS: Heparin 25,000UNIT/250ML 1/2NS 25,000 UNIT/250 ML IV.SOLN IVC SCH (22:15)
[2020-10-21 05:24] LABS: Basophils % 0.3 %; Red Cell Distribution Width 15.7 % (11.5-14.5); Segmented Neutrophils % 66.7 %
[2020-10-21 05:26] LABS: Hematocrit 29.2 % (35.3-44.9); Hemoglobin 9.2 g/dL (11.5-15.4); Immature Granulocytes % 0.3 % (0-4); Immature Platelets 4.4 % (1.1-6.1); Lymphocytes # 0.7 K/mcL (0.6-4.6); Lymphocytes % 21.2 %; Mean Corpuscular HGB Conc 31.5 g/dL (31.6-35.5); Mean Corpuscular Volume 88.8 fL (83.0-100.0); Monocytes # 0.4 K/mcL (0.0-1.3); Monocytes % 11.5 %; Neutrophils # 2.1 K/mcL (1.6-8.9); Red Blood Count 3.29 M/mcL (3.82-4.97); White Blood Count 3.1 K/mcL (4.3-11.1)
[2020-10-21 05:37] LABS: Platelet Count 90 K/mcL (140-400)
[2020-10-21 05:43] LABS: Calcium 7.6 mg/dL (8.6-10.3); Magnesium 2.1 mg/dL (1.6-2.6); Potassium 4.5 mEq/L (3.5-5.1)
[2020-10-21] MEDS ORDERED: 0.9 % Sodium Chloride 250 ML IVC PRN (07:06)
[2020-10-21] MEDS: Insulin LISPRO 300 UNITS/3 ML VIAL SQ SCH ×4 (07:44→20:53)
[2020-10-21] MEDS: NIFEdipine XL (24 HR) 60 MG TAB.ER.24 PO SCH (07:50)
[2020-10-21] MEDS: Doxycycline 100 MG CAPSULE PO SCH ×2 (07:50→21:18)
[2020-10-21] MEDS: Aspirin 81 MG TAB.CHEW PO SCH (07:50)
[2020-10-21] MEDS: carvediloL 6.25 MG TABLET PO SCH ×3 (07:50→18:30)
[2020-10-21] MEDS: Dexamethasone 4 MG/ML VIAL IVP SCH (07:51)
[2020-10-21] MEDS: Insulin DETEMIR 100 UNIT/ML X5UNITS SQ SCH (08:34)
[2020-10-21] MEDS ORDERED: *HR* HYDROcodone/Acet 5/325 mg TABLET PO PRN (12:18)
[2020-10-21] MEDS: Cholecalciferol (D-3) 1,000 UNIT (25MCG) TABLET PO SCH (21:18)
[2020-10-21] MEDS: Gabapentin 300 MG CAPSULE PO SCH (21:18)
[2020-10-21] MEDS: Famotidine 20 MG TABLET PO SCH (21:20)
[2020-10-21] MEDS: Heparin 25,000UNIT/250ML 1/2NS 25,000 UNIT/250 ML IV.SOLN IVC SCH (21:42)
[2020-10-21] MEDS ORDERED: *HR* LORazepam 2 MG/ML VIAL IVP ONE (22:50)
[2020-10-22] MEDS ORDERED: Haloperidol Lactate 5 MG/ML VIAL IVP ONE (01:42)
[2020-10-22] MEDS: Heparin 25,000UNIT/250ML 1/2NS 25,000 UNIT/250 ML IV.SOLN IVC SCH (05:34)
[2020-10-22] MEDS: Insulin LISPRO 300 UNITS/3 ML VIAL SQ SCH ×4 (08:21→21:20)
[2020-10-22] MEDS: Doxycycline 100 MG CAPSULE PO SCH ×2 (08:22→21:12)
[2020-10-22] MEDS: Renal Vitamin 1 CAP CAPSULE PO SCH (08:22)
[2020-10-22] MEDS: Aspirin 81 MG TAB.CHEW PO SCH (08:22)
[2020-10-22] MEDS: carvediloL 6.25 MG TABLET PO SCH ×2 (08:22→18:20)
[2020-10-22] MEDS: Cholecalciferol (D-3) 1,000 UNIT (25MCG) TABLET PO SCH ×2 (08:22→21:12)
[2020-10-22] MEDS: NIFEdipine XL (24 HR) 60 MG TAB.ER.24 PO SCH (08:22)
[2020-10-22] MEDS: Calcium Acetate 667 MG CAPSULE PO SCH (08:22)
[2020-10-22] MEDS: Insulin DETEMIR 100 UNIT/ML X5UNITS SQ SCH (08:34)
[2020-10-22] MEDS: Dexamethasone 4 MG/ML VIAL IVP SCH (08:52)
[2020-10-22] MEDS: Gabapentin 300 MG CAPSULE PO SCH (21:12)
[2020-10-23 00:56] LABS: Basophils % 0.3 %; Hematocrit 30.7 % (35.3-44.9); Hemoglobin 9.3 g/dL (11.5-15.4); Immature Granulocytes % 0.5 % (0-4); Lymphocytes % 25.7 %; Mean Corpuscular HGB Conc 30.3 g/dL (31.6-35.5); Mean Corpuscular Hemoglobin 27.1 pg (28.0-33.3); Mean Corpuscular Volume 89.5 fL (83.0-100.0); Mean Platelet Volume 11.3 fL (9.4-12.4); Monocytes # 0.5 K/mcL (0.0-1.3); Neutrophils # 2.3 K/mcL (1.6-8.9); Platelet Count 107 K/mcL (140-400); Red Blood Count 3.43 M/mcL (3.82-4.97); Red Cell Distribution Width 15.5 % (11.5-14.5); Segmented Neutrophils % 61.5 %; White Blood Count 3.7 K/mcL (4.3-11.1)
[2020-10-23 01:19] LABS: Calcium 7.1 mg/dL (8.6-10.3); Magnesium 1.9 mg/dL (1.6-2.6); Phosphorous 3.4 mg/dL (2.7-4.5); Potassium 4.2 mEq/L (3.5-5.1)
[2020-10-23] MEDS: Insulin LISPRO 300 UNITS/3 ML VIAL SQ SCH ×4 (07:52→20:29)
[2020-10-23] MEDS: Aspirin 81 MG TAB.CHEW PO SCH (08:06)
[2020-10-23] MEDS: carvediloL 6.25 MG TABLET PO SCH ×2 (08:06→17:21)
[2020-10-23] MEDS: Renal Vitamin 1 CAP CAPSULE PO SCH (08:06)
[2020-10-23] MEDS: Cholecalciferol (D-3) 1,000 UNIT (25MCG) TABLET PO SCH ×2 (08:06→20:17)
[2020-10-23] MEDS: NIFEdipine XL (24 HR) 60 MG TAB.ER.24 PO SCH (08:06)
[2020-10-23] MEDS: Calcium Acetate 667 MG CAPSULE PO SCH (08:06)
[2020-10-23] MEDS: Dexamethasone 4 MG/ML VIAL IVP SCH (08:08)
[2020-10-23] MEDS: Doxycycline 100 MG CAPSULE PO SCH ×2 (08:08→20:17)
[2020-10-23] MEDS: Insulin DETEMIR 100 UNIT/ML X5UNITS SQ SCH (08:09)
[2020-10-23] MEDS: Heparin 25,000UNIT/250ML 1/2NS 25,000 UNIT/250 ML IV.SOLN IVC SCH (11:44)
[2020-10-23] MEDS ORDERED: Apixaban 5 MG TABLET PO SCH (15:00)
[2020-10-23] MEDS: Gabapentin 300 MG CAPSULE PO SCH (20:17)
[2020-10-23] MEDS: Apixaban 5 MG TABLET PO SCH (20:18)
[2020-10-24 05:43] LABS: Basophils % 0.2 %; Hematocrit 33.6 % (35.3-44.9); Hemoglobin 10.1 g/dL (11.5-15.4); Immature Granulocytes % 0.2 % (0-4); Lymphocytes # 1.7 K/mcL (0.6-4.6); Lymphocytes % 32.3 %; Mean Corpuscular HGB Conc 30.1 g/dL (31.6-35.5); Mean Corpuscular Volume 86.4 fL (83.0-100.0); Monocytes # 0.7 K/mcL (0.0-1.3); Monocytes % 12.4 %; Neutrophils # 2.9 K/mcL (1.6-8.9); Platelet Count 126 K/mcL (140-400); Red Blood Count 3.89 M/mcL (3.82-4.97); Red Cell Distribution Width 14.9 % (11.5-14.5); Segmented Neutrophils % 54.9 %; White Blood Count 5.3 K/mcL (4.3-11.1)
[2020-10-24 06:05] LABS: Calcium 7.4 mg/dL (8.6-10.3); Magnesium 1.9 mg/dL (1.6-2.6); Potassium 4.1 mEq/L (3.5-5.1)
[2020-10-24] MEDS: Insulin LISPRO 300 UNITS/3 ML VIAL SQ SCH ×4 (08:46→20:58)
[2020-10-24] MEDS ORDERED: 0.9 % Sodium Chloride 250 ML IVC PRN (09:05)
[2020-10-24] MEDS ORDERED: *HR* Heparin 10,000 UNIT/10 ML VIAL IV PRN ×2 (09:05)
[2020-10-24] MEDS: Dexamethasone 4 MG/ML VIAL IVP SCH (09:50)
[2020-10-24] MEDS: Calcium Acetate 667 MG CAPSULE PO SCH (09:52)
[2020-10-24] MEDS: carvediloL 6.25 MG TABLET PO SCH ×2 (09:52→16:30)
[2020-10-24] MEDS: Aspirin 81 MG TAB.CHEW PO SCH (09:52)
[2020-10-24] MEDS: Cholecalciferol (D-3) 1,000 UNIT (25MCG) TABLET PO SCH ×2 (09:53→20:37)
[2020-10-24] MEDS: Renal Vitamin 1 CAP CAPSULE PO SCH (09:53)
[2020-10-24] MEDS: Doxycycline 100 MG CAPSULE PO SCH ×2 (09:53→20:37)
[2020-10-24] MEDS: NIFEdipine XL (24 HR) 60 MG TAB.ER.24 PO SCH (09:53)
[2020-10-24] MEDS: Apixaban 5 MG TABLET PO SCH ×2 (09:54→20:38)
[2020-10-24] MEDS: Insulin DETEMIR 100 UNIT/ML X5UNITS SQ SCH (09:55)
[2020-10-24] MEDS: Gabapentin 300 MG CAPSULE PO SCH (20:37)
[2020-10-24] MEDS: Famotidine 20 MG TABLET PO SCH (20:40)
[2020-10-24 21:02] VITALS: BP 144/93
== END 2020-10-24 21:23 ==
LOC: 2NENU 20:05 → EMEROOARM 20:05 → SUATTDRO 10-19 00:19 → 2NENU 10-19 01:34 → 3BNU 10-20 20:28 → 2NENU 10-21 14:49
PROVIDERS: ADMIT Internal Medicine; ATTEND Pharmacist

== ENCOUNTER 2020-12-14 06:13 | Inpatient (IN) ==
[2020-12-14 07:07] LABS: Basophils % 0.5 %; Eosinophils # 0.2 K/mcL (0.0-0.6); Eosinophils % 2.7 %; Hematocrit 28.2 % (35.3-44.9); Hemoglobin 8.5 g/dL (11.5-15.4); Immature Granulocytes % 0.1 % (0-4); Lymphocytes # 0.7 K/mcL (0.6-4.6); Lymphocytes % 9.3 %; Mean Corpuscular HGB Conc 30.1 g/dL (31.6-35.5); Mean Corpuscular Hemoglobin 27.9 pg (28.0-33.3); Mean Corpuscular Volume 92.5 fL (83.0-100.0); Mean Platelet Volume 11.1 fL (9.4-12.4); Monocytes # 0.5 K/mcL (0.0-1.3); Monocytes % 6.7 %; Neutrophils # 6.2 K/mcL (1.6-8.9); Platelet Count 123 K/mcL (140-400); Red Blood Count 3.05 M/mcL (3.82-4.97); Red Cell Distribution Width 17.7 % (11.5-14.5); Segmented Neutrophils % 80.7 %; White Blood Count 7.7 K/mcL (4.3-11.1)
[2020-12-14 07:16] LABS: Bacteria,Urine Many per hpf (None-Few); Bilirubin,Urine Negative (Negative); Blood,Urine Moderate (Negative); Clarity,Urine Ex.Turbid (Clear); Color,Urine Yellow (Yellow); Glucose,Urine (UA) Normal (Normal); Ketones,Urine Negative (Negative); Leukocyte Esterase,Urine Large (Negative); Mucus,Urine Few per lpf (None-Few); Nitrite,Urine Negative (Negative); Protein,Urine >=300 mg/dL (Neg-Trace); Specific Gravity,Urine 1.011 (1.010-1.025); Urobilinogen,Urine Normal (Normal); WBC,Urine TNTC per hpf (0-3)
[2020-12-14 07:21] LABS: Calcium 8.2 mg/dL (8.6-10.3); Potassium 6.1 mEq/L (3.5-5.1)
[2020-12-14] MEDS ORDERED: cefTRIAXone 1,000 MG in 0.9 % Sodium Chloride Mini Bag 100 ML IVPB ONE (07:39)
[2020-12-14] MEDS ORDERED: Naloxone 0.4 MG/ML INJ IVP PRN (10:06)
[2020-12-14] MEDS ORDERED: Ondansetron 4 MG/2 ML VIAL IVP PRN (10:06)
[2020-12-14] MEDS ORDERED: Dextrose Gel 15 GM/37.5 ML TUBE PO PRN ×2 (10:10)
[2020-12-14] MEDS ORDERED: *HR* Dextrose 50 % in Water (Vial) 50 ML VIAL IVP PRN (10:10)
[2020-12-14] MEDS ORDERED: levETIRAcetam 1,000 MG in 0.9 % Sodium Chloride 100 ML IVPB ONE (10:10)
[2020-12-14] MEDS ORDERED: D5% in Water 1,000 ML IVC PRN (10:10)
[2020-12-14 10:57] LABS: INR 1.2; Prothrombin Time 13.7 Seconds (9.4-12.1)
[2020-12-14 11:00] LABS: Activated Partial Thrombo Time 35.1 Seconds (26.0-36.0)
[2020-12-14 11:12] LABS: Acetaminophen < 10 mcg/mL (10-20); Alanine Aminotransferase 11 Units/L (7-52); Albumin 3.9 g/dL (3.5-5.7); Albumin/Globulin Ratio 1.3 (1.1-2.2); Alkaline Phosphatase 104 Units/L (34-104); Aspartate Amino Transferase 15 Units/L (13-39); Bilirubin,Direct 0.1 mg/dL (0.0-0.2); Bilirubin,Indirect 0.4 mg/dL (0.0-1.0); Bilirubin,Total 0.5 mg/dL (0.3-1.0); Globulin 3.1 g/dL (2.4-3.5); Salicylate < 2.5 mg/dL (15.0-30.0)
[2020-12-14] MEDS: Furosemide 20 MG/2 ML VIAL IVP SCH ×2 (11:31→22:01)
[2020-12-14] MEDS ORDERED: Insulin LISPRO 300 UNITS/3 ML VIAL SUBQ SCH (12:00)
[2020-12-14] MEDS ORDERED: 0.9 % Sodium Chloride 250 ML IVC PRN (14:35)
[2020-12-14] MEDS ORDERED: *HR* LORazepam 2 MG/ML VIAL IVP PRN (14:41)
[2020-12-14] MEDS ORDERED: 0.9 % Sodium Chloride 1,000 ML PRIME SCH (14:45)
[2020-12-14] MEDS ORDERED: 0.9 % Sodium Chloride 1,000 ML ONE (14:49)
[2020-12-14 15:19] LABS: Hepatitis B Surface Antibody 107.65 mIU/mL
[2020-12-14 15:31] LABS: Hepatitis B Surface Antigen Nonreactive (Nonreactive)
[2020-12-14] MEDS: NIFEdipine XL (24 HR) 60 MG TAB.ER.24 PO SCH (18:56)
[2020-12-14] MEDS: carvediloL 6.25 MG TABLET PO SCH (18:56)
[2020-12-14] MEDS: Insulin LISPRO 300 UNITS/3 ML VIAL SUBQ SCH (18:56)
[2020-12-14] MEDS: Apixaban 5 MG TABLET PO SCH (22:01)
[2020-12-15 04:19] LABS: Basophils # 0.1 K/mcL (0.0-0.2); Basophils % 0.8 %; Eosinophils # 0.2 K/mcL (0.0-0.6); Hematocrit 25.7 % (35.3-44.9); Immature Granulocytes % 0.3 % (0-4); Lymphocytes # 0.8 K/mcL (0.6-4.6); Lymphocytes % 13.6 %; Mean Corpuscular HGB Conc 31.1 g/dL (31.6-35.5); Mean Corpuscular Hemoglobin 28.6 pg (28.0-33.3); Mean Corpuscular Volume 91.8 fL (83.0-100.0); Mean Platelet Volume 10.3 fL (9.4-12.4); Monocytes # 0.6 K/mcL (0.0-1.3); Monocytes % 10.2 %; Neutrophils # 4.4 K/mcL (1.6-8.9); Platelet Count 102 K/mcL (140-400); Red Cell Distribution Width 17.3 % (11.5-14.5); Segmented Neutrophils % 72.1 %; White Blood Count 6.1 K/mcL (4.3-11.1)
[2020-12-15 04:41] LABS: Magnesium 2.1 mg/dL (1.6-2.6); Phosphorous 4.2 mg/dL (2.7-4.5); Potassium 4.4 mEq/L (3.5-5.1)
[2020-12-15] MEDS ORDERED: NIFEdipine XL (24 HR) 60 MG TAB.ER.24 PO SCH (09:00)
[2020-12-15] MEDS: NIFEdipine XL (24 HR) 60 MG TAB.ER.24 PO SCH (09:45)
[2020-12-15] MEDS: Aspirin 81 MG TAB.CHEW PO SCH (09:46)
[2020-12-15] MEDS: Apixaban 5 MG TABLET PO SCH ×2 (09:46→20:03)
[2020-12-15] MEDS: carvediloL 6.25 MG TABLET PO SCH ×2 (09:46→17:17)
[2020-12-15] MEDS: Furosemide 20 MG/2 ML VIAL IVP SCH ×2 (09:46→20:04)
[2020-12-15] MEDS: cefTRIAXone 1,000 MG in Water for inj. (sterile) 10 ML IVP SCH (09:47)
[2020-12-15] MEDS: Insulin LISPRO 300 UNITS/3 ML VIAL SUBQ SCH ×3 (09:52→17:10)
[2020-12-15] MEDS ORDERED: 0.9 % Sodium Chloride 250 ML IVC PRN (16:08)
[2020-12-16] MEDS ORDERED: *HR* Heparin 10,000 UNIT/10 ML VIAL IV PRN (00:01)
[2020-12-16 06:55] LABS: VBG Ionized Calcium 0.92 mmol/L (1.15-1.35)
[2020-12-16 07:25] LABS: Basophils % 0.7 %; Immature Granulocytes % 0.2 % (0-4); Red Cell Distribution Width 16.7 % (11.5-14.5)
[2020-12-16 07:27] LABS: Eosinophils # 0.2 K/mcL (0.0-0.6); Eosinophils % 3.7 %; Hemoglobin 7.8 g/dL (11.5-15.4); Immature Platelets 4.3 % (1.1-6.1); Lymphocytes % 16.9 %; Mean Corpuscular HGB Conc 31.2 g/dL (31.6-35.5); Mean Corpuscular Hemoglobin 28.6 pg (28.0-33.3); Mean Corpuscular Volume 91.6 fL (83.0-100.0); Mean Platelet Volume 11.2 fL (9.4-12.4); Monocytes # 0.6 K/mcL (0.0-1.3); Monocytes % 9.6 %; Platelet Count 109 K/mcL (140-400); Red Blood Count 2.73 M/mcL (3.82-4.97); Segmented Neutrophils % 68.9 %; White Blood Count 5.7 K/mcL (4.3-11.1)
[2020-12-16 07:35] LABS: Calcium 7.9 mg/dL (8.6-10.3); Magnesium 2.2 mg/dL (1.6-2.6); Phosphorous 5.4 mg/dL (2.7-4.5); Potassium 4.8 mEq/L (3.5-5.1)
[2020-12-16 07:45] LABS: Neutrophils # 3.9 K/mcL (1.6-8.9)
[2020-12-16] MEDS: Insulin LISPRO 300 UNITS/3 ML VIAL SUBQ SCH ×2 (08:15→12:04)
[2020-12-16 12:00] VITALS: BP 123/35
[2020-12-16] MEDS: NIFEdipine XL (24 HR) 60 MG TAB.ER.24 PO SCH (12:08)
[2020-12-16] MEDS: Aspirin 81 MG TAB.CHEW PO SCH (12:09)
[2020-12-16] MEDS: carvediloL 6.25 MG TABLET PO SCH (12:09)
[2020-12-16] MEDS: Apixaban 5 MG TABLET PO SCH (12:10)
[2020-12-16] MEDS: cefTRIAXone 1,000 MG in Water for inj. (sterile) 10 ML IVP SCH (12:10)
[2020-12-16] MEDS: Furosemide 20 MG/2 ML VIAL IVP SCH (12:20)
== END 2020-12-16 16:52 | DRG 100 ==
LOC: EMEROOARM 06:13 → CDU 06:13 → SUATTDRO 11:51 → CDU 13:20 → 2ANU 12-15 17:41
PROVIDERS: ADMIT Internal Medicine; ATTEND Internal Medicine

== ENCOUNTER 2020-12-20 12:35 | Inpatient (IN) ==
[2020-12-20 13:33] LABS: Basophils % 0.6 %; Eosinophils # 0.2 K/mcL (0.0-0.6); Eosinophils % 2.3 %; Hematocrit 28.1 % (35.3-44.9); Hemoglobin 8.4 g/dL (11.5-15.4); Immature Granulocytes % 0.3 % (0-4); Lymphocytes % 14.7 %; Mean Corpuscular HGB Conc 29.9 g/dL (31.6-35.5); Mean Corpuscular Hemoglobin 28.1 pg (28.0-33.3); Mean Platelet Volume 10.5 fL (9.4-12.4); Monocytes # 0.6 K/mcL (0.0-1.3); Monocytes % 9.4 %; Neutrophils # 4.7 K/mcL (1.6-8.9); Platelet Count 148 K/mcL (140-400); Red Blood Count 2.99 M/mcL (3.82-4.97); Red Cell Distribution Width 16.7 % (11.5-14.5); Segmented Neutrophils % 72.7 %; White Blood Count 6.5 K/mcL (4.3-11.1)
[2020-12-20 13:34] LABS: INR 1.3; Prothrombin Time 14.9 Seconds (9.4-12.1)
[2020-12-20 13:37] LABS: Activated Partial Thrombo Time 37.3 Seconds (26.0-36.0)
[2020-12-20 13:46] LABS: ABG Base Excess 7 mEq/L (-2 to 3); ABG HCO3 33 mEq/L (21-27); ABG Oxygen Saturation 97 % (95-98); ABG PCO2 54 mmHg (35-45); ABG PH 7.39 pH Units (7.32-7.45); ABG PO2 95 mmHg (85-104); ABG TCO2 34 mEq/L (20-26)
[2020-12-20 13:54] LABS: Alanine Aminotransferase 8 Units/L (7-52); Albumin 3.9 g/dL (3.5-5.7); Albumin/Globulin Ratio 1.2 (1.1-2.2); Alkaline Phosphatase 87 Units/L (34-104); Aspartate Amino Transferase 11 Units/L (13-39); BUN/Creatinine Ratio 9 (6-26); Bilirubin,Direct 0.1 mg/dL (0.0-0.2); Bilirubin,Indirect 0.5 mg/dL (0.0-1.0); Bilirubin,Total 0.6 mg/dL (0.3-1.0); Blood Urea Nitrogen 55 mg/dL (8-23); Calcium 8.4 mg/dL (8.6-10.3); Carbon Dioxide 28 mEq/L (23-29); Chloride 99 mEq/L (98-107); Creatine Kinase 29 Units/L (30-223); Ethanol < 10 mg/dL (Less than 10); Globulin 3.3 g/dL (2.4-3.5); Glucose 166 mg/dL (70-105); Osmolality,Calculated 311 (280-300); Potassium 5.7 mEq/L (3.5-5.1); Sodium 141 mEq/L (136-145); Total Protein 7.2 g/dL (6.4-8.9); Troponin I 0.03 ng/mL (< 0.04); eGFR For African Americans 8 (> 60); eGFR For Non-African Americans 7 (> 60)
[2020-12-20] MEDS ORDERED: *HR* Dextrose 50 % in Water (Vial) 50 ML VIAL IVP ONE (13:57)
[2020-12-20] MEDS ORDERED: Calcium Gluconate 1gm/50mL 1 GM/50 ML BAG IVPB ONE (13:57)
[2020-12-20 14:05] LABS: Thyroid Stimulating Hormone 0.878 mcIU/mL (0.340-5.600)
[2020-12-20] MEDS ORDERED: *HR* Metoprolol 5 MG/5 ML VIAL IVP ONE (14:10)
[2020-12-20] MEDS ORDERED: Insulin Human Regular 10 UNIT in 0.9 % Sodium Chloride 10 ML IV ONE (14:20)
[2020-12-20] MEDS ORDERED: Naloxone 0.4 MG/ML INJ IVP PRN (15:04)
[2020-12-20] MEDS ORDERED: *HR* Heparin 10,000 UNIT/10 ML VIAL IV PRN ×2 (15:48)
[2020-12-20] MEDS ORDERED: 0.9 % Sodium Chloride 250 ML IVC PRN (15:48)
[2020-12-20] MEDS ORDERED: 0.9 % Sodium Chloride 1,000 ML ONE (15:57)
[2020-12-20] MEDS ORDERED: 0.9 % Sodium Chloride 1,000 ML PRIME SCH (16:00)
[2020-12-20] MEDS ORDERED: traZODone 50 MG TABLET PO PRN (16:02)
[2020-12-20] MEDS ORDERED: *HR* HYDROcodone/Acet 5/325 mg TABLET PO PRN (16:02)
[2020-12-20] MEDS ORDERED: *HR* Dextrose 50 % in Water (Vial) 50 ML VIAL IVP PRN (17:25)
[2020-12-20] MEDS ORDERED: Dextrose Gel 15 GM/37.5 ML TUBE PO PRN ×2 (17:25)
[2020-12-20] MEDS ORDERED: D5% in Water 1,000 ML IVC PRN (17:25)
[2020-12-20] MEDS: Insulin LISPRO 300 UNITS/3 ML VIAL SUBQ SCH (20:28)
[2020-12-20] MEDS: Apixaban 5 MG TABLET PO SCH (20:29)
[2020-12-20] MEDS: Gabapentin 300 MG CAPSULE PO SCH (20:32)
[2020-12-20] MEDS: levETIRAcetam 250 MG TABLET PO SCH (20:32)
[2020-12-20] MEDS: carvediloL 6.25 MG TABLET PO SCH (20:33)
[2020-12-20] MEDS: Furosemide 40 MG TABLET PO SCH (20:33)
[2020-12-21 01:50] LABS: Basophils % 0.8 %; Hemoglobin 7.2 g/dL (11.5-15.4)
[2020-12-21 01:53] LABS: Basophils # 0.1 K/mcL (0.0-0.2); Eosinophils # 0.2 K/mcL (0.0-0.6); Eosinophils % 2.2 %; Hematocrit 23.6 % (35.3-44.9); Immature Granulocytes % 0.4 % (0-4); Immature Platelets 4.5 % (1.1-6.1); Lymphocytes # 1.2 K/mcL (0.6-4.6); Lymphocytes % 16.5 %; Mean Corpuscular HGB Conc 30.5 g/dL (31.6-35.5); Mean Corpuscular Volume 91.8 fL (83.0-100.0); Mean Platelet Volume 10.7 fL (9.4-12.4); Monocytes # 0.8 K/mcL (0.0-1.3); Monocytes % 11.4 %; Platelet Count 123 K/mcL (140-400); Red Blood Count 2.57 M/mcL (3.82-4.97); Red Cell Distribution Width 16.3 % (11.5-14.5); Segmented Neutrophils % 68.7 %; White Blood Count 7.3 K/mcL (4.3-11.1)
[2020-12-21 02:10] LABS: Calcium 8.1 mg/dL (8.6-10.3); Potassium 4.7 mEq/L (3.5-5.1)
[2020-12-21] MEDS ORDERED: 0.9 % Sodium Chloride 250 ML IVC PRN (07:19)
[2020-12-21] MEDS ORDERED: *HR* Heparin 10,000 UNIT/10 ML VIAL IV PRN ×2 (07:19)
[2020-12-21] MEDS: Insulin LISPRO 300 UNITS/3 ML VIAL SUBQ SCH ×4 (08:29→21:01)
[2020-12-21] MEDS: carvediloL 6.25 MG TABLET PO SCH ×2 (08:29→16:30)
[2020-12-21] MEDS ORDERED: SODIUM ZIRCONIUM CYCLOSILICATE 5 GM POWD.PACK PO SCH (09:00)
[2020-12-21] MEDS: Renal Vitamin 1 CAP CAPSULE PO SCH (09:21)
[2020-12-21] MEDS: Aspirin 81 MG TAB.CHEW PO SCH (09:21)
[2020-12-21] MEDS: Gabapentin 300 MG CAPSULE PO SCH (09:21)
[2020-12-21] MEDS: Famotidine 20 MG TABLET PO SCH (09:21)
[2020-12-21] MEDS: Calcium Acetate 667 MG CAPSULE PO SCH (09:22)
[2020-12-21] MEDS: Apixaban 5 MG TABLET PO SCH ×2 (09:22→21:00)
[2020-12-21] MEDS: levETIRAcetam 250 MG TABLET PO SCH ×2 (09:22→21:00)
[2020-12-21] MEDS: NIFEdipine XL (24 HR) 60 MG TAB.ER.24 PO SCH (09:24)
[2020-12-21 14:28] LABS: Hematocrit 27.2 % (35.3-44.9); Hemoglobin 8.5 g/dL (11.5-15.4)
[2020-12-21 18:56] LABS: Bilirubin,Urine Negative (Negative); Blood,Urine Small (Negative); Clarity,Urine Ex.Turbid (Clear); Color,Urine Yellow (Yellow); Glucose,Urine (UA) Normal (Normal); Ketones,Urine Negative (Negative); Leukocyte Esterase,Urine Large (Negative); Nitrite,Urine Negative (Negative); PH,Urine 7.5 pH Units (5.0-8.0); Protein,Urine >=300 mg/dL (Neg-Trace); Specific Gravity,Urine 1.013 (1.010-1.025); Urobilinogen,Urine Normal (Normal)
[2020-12-21 19:07] LABS: Bacteria,Urine Few per hpf (None-Few); Squamous Epithelial Cell,Urine Many per hpf (None-Few); WBC,Urine TNTC per hpf (0-3)
[2020-12-21 19:09] LABS: Amphetamine Screen,Urine Negative ng/mL (Cutoff=1000); Barbiturate Screen,Urine Negative ng/mL (Cutoff=200); Benzodiazepines Screen,Urine Negative ng/mL (Cutoff=200); Cannabinoid Screen,Urine Negative ng/mL (Cutoff = 50); Cocaine Screen,Urine Negative ng/mL (Cutoff= 300); Opiate Screen,Urine Negative ng/mL (Cutoff=300); Phencyclidine Screen,Urine Negative ng/mL (Cutoff=25)
[2020-12-21] MEDS: Gabapentin 100 MG CAPSULE PO SCH (21:00)
[2020-12-22 06:28] LABS: Basophils % 0.9 %; Eosinophils # 0.2 K/mcL (0.0-0.6); Hematocrit 24.8 % (35.3-44.9); Hemoglobin 7.6 g/dL (11.5-15.4); Immature Granulocytes % 0.2 % (0-4); Lymphocytes # 0.9 K/mcL (0.6-4.6); Lymphocytes % 20.2 %; Mean Corpuscular HGB Conc 30.6 g/dL (31.6-35.5); Mean Corpuscular Hemoglobin 27.8 pg (28.0-33.3); Mean Corpuscular Volume 90.8 fL (83.0-100.0); Mean Platelet Volume 12.1 fL (9.4-12.4); Monocytes # 0.6 K/mcL (0.0-1.3); Monocytes % 12.4 %; Neutrophils # 2.8 K/mcL (1.6-8.9); Platelet Count 164 K/mcL (140-400); Red Blood Count 2.73 M/mcL (3.82-4.97); Red Cell Distribution Width 15.9 % (11.5-14.5); Segmented Neutrophils % 62.3 %; White Blood Count 4.5 K/mcL (4.3-11.1)
[2020-12-22 07:06] LABS: Calcium 7.9 mg/dL (8.6-10.3); Potassium 3.8 mEq/L (3.5-5.1)
[2020-12-22] MEDS: Aspirin 81 MG TAB.CHEW PO SCH (08:12)
[2020-12-22] MEDS: Insulin LISPRO 300 UNITS/3 ML VIAL SUBQ SCH ×4 (08:12→21:06)
[2020-12-22] MEDS: Renal Vitamin 1 CAP CAPSULE PO SCH (08:12)
[2020-12-22] MEDS: Famotidine 20 MG TABLET PO SCH (08:13)
[2020-12-22] MEDS: Gabapentin 100 MG CAPSULE PO SCH ×2 (08:13→21:00)
[2020-12-22] MEDS: Calcium Acetate 667 MG CAPSULE PO SCH (08:13)
[2020-12-22] MEDS: carvediloL 6.25 MG TABLET PO SCH ×2 (08:13→15:38)
[2020-12-22] MEDS: NIFEdipine XL (24 HR) 60 MG TAB.ER.24 PO SCH (08:14)
[2020-12-22] MEDS: levETIRAcetam 250 MG TABLET PO SCH ×2 (08:14→21:00)
[2020-12-22] MEDS: Apixaban 5 MG TABLET PO SCH (08:14)
[2020-12-22 10:41] LABS: Hematocrit 24.7 % (35.3-44.9); Hemoglobin 7.6 g/dL (11.5-15.4)
[2020-12-22] MEDS: Furosemide 40 MG TABLET PO SCH (15:37)
[2020-12-22] MEDS: *HR* Heparin 5,000 UNIT/ML VIAL SQ SCH ×2 (15:37→21:00)
[2020-12-23] MEDS: *HR* Heparin 5,000 UNIT/ML VIAL SQ SCH ×2 (05:12→13:50)
[2020-12-23 05:48] LABS: Basophils % 0.7 %; Eosinophils # 0.2 K/mcL (0.0-0.6); Eosinophils % 3.3 %; Hematocrit 22.9 % (35.3-44.9); Hemoglobin 7.1 g/dL (11.5-15.4); Immature Granulocytes % 0.2 % (0-4); Lymphocytes # 1.7 K/mcL (0.6-4.6); Lymphocytes % 31.2 %; Mean Corpuscular Hemoglobin 28.1 pg (28.0-33.3); Mean Corpuscular Volume 90.5 fL (83.0-100.0); Mean Platelet Volume 11.3 fL (9.4-12.4); Monocytes # 0.6 K/mcL (0.0-1.3); Monocytes % 11.1 %; Platelet Count 154 K/mcL (140-400); Red Blood Count 2.53 M/mcL (3.82-4.97); Red Cell Distribution Width 15.6 % (11.5-14.5); Segmented Neutrophils % 53.5 %; White Blood Count 5.5 K/mcL (4.3-11.1)
[2020-12-23 05:52] LABS: Hematocrit 22.8 % (35.3-44.9); Hemoglobin 7.1 g/dL (11.5-15.4); Mean Corpuscular HGB Conc 31.1 g/dL (31.6-35.5); Mean Corpuscular Hemoglobin 28.1 pg (28.0-33.3); Mean Corpuscular Volume 90.1 fL (83.0-100.0); Mean Platelet Volume 11.3 fL (9.4-12.4); Platelet Count 155 K/mcL (140-400); Red Blood Count 2.53 M/mcL (3.82-4.97); Red Cell Distribution Width 15.6 % (11.5-14.5); White Blood Count 5.5 K/mcL (4.3-11.1)
[2020-12-23 06:12] LABS: Calcium 8.1 mg/dL (8.6-10.3); Potassium 4.2 mEq/L (3.5-5.1)
[2020-12-23] MEDS ORDERED: *HR* Heparin 10,000 UNIT/10 ML VIAL IV PRN ×2 (07:23)
[2020-12-23] MEDS ORDERED: 0.9 % Sodium Chloride 250 ML IVC PRN (07:23)
[2020-12-23] MEDS: Insulin LISPRO 300 UNITS/3 ML VIAL SUBQ SCH ×3 (08:00→18:39)
[2020-12-23] MEDS: Renal Vitamin 1 CAP CAPSULE PO SCH (13:50)
[2020-12-23] MEDS: Famotidine 20 MG TABLET PO SCH (13:50)
[2020-12-23] MEDS: Gabapentin 100 MG CAPSULE PO SCH (13:51)
[2020-12-23] MEDS: carvediloL 6.25 MG TABLET PO SCH ×2 (13:51→18:39)
[2020-12-23] MEDS: Aspirin 81 MG TAB.CHEW PO SCH (13:51)
[2020-12-23] MEDS: Calcium Acetate 667 MG CAPSULE PO SCH (13:51)
[2020-12-23] MEDS: NIFEdipine XL (24 HR) 60 MG TAB.ER.24 PO SCH (13:51)
[2020-12-23] MEDS: levETIRAcetam 250 MG TABLET PO SCH (13:52)
[2020-12-23 19:10] VITALS: BP 150/76
== END 2020-12-23 20:44 | DRG 640 ==
LOC: 2ANU 12:35 → EMEROOARM 12:35 → 2ANU 15:46
PROVIDERS: ADMIT Internal Medicine; ATTEND Internal Medicine

== ENCOUNTER 2021-01-25 20:09 | Inpatient (IN) ==
[2021-01-25] MEDS ORDERED: 0.9 % Sodium Chloride 1,000 ML IVC ONE (21:19)
[2021-01-25 22:16] LABS: Basophils # 0.1 K/mcL (0.0-0.2); Basophils % 0.9 %; Eosinophils # 0.1 K/mcL (0.0-0.6); Eosinophils % 0.9 %; Hematocrit 25.2 % (35.3-44.9); Hemoglobin 7.7 g/dL (11.5-15.4); Immature Granulocytes % 0.4 % (0-4); Lymphocytes # 0.9 K/mcL (0.6-4.6); Lymphocytes % 16.1 %; Mean Corpuscular HGB Conc 30.6 g/dL (31.6-35.5); Mean Corpuscular Hemoglobin 27.3 pg (28.0-33.3); Mean Corpuscular Volume 89.4 fL (83.0-100.0); Mean Platelet Volume 10.9 fL (9.4-12.4); Monocytes # 0.6 K/mcL (0.0-1.3); Monocytes % 10.8 %; Neutrophils # 3.7 K/mcL (1.6-8.9); Platelet Count 163 K/mcL (140-400); Red Blood Count 2.82 M/mcL (3.82-4.97); Red Cell Distribution Width 15.3 % (11.5-14.5); Segmented Neutrophils % 70.9 %; White Blood Count 5.3 K/mcL (4.3-11.1)
[2021-01-25 22:38] LABS: BUN/Creatinine Ratio 7 (6-26); Blood Urea Nitrogen 23 mg/dL (8-23); Calcium 8.4 mg/dL (8.6-10.3); Carbon Dioxide 33 mEq/L (23-29); Chloride 93 mEq/L (98-107); Glucose 174 mg/dL (70-105); Osmolality,Calculated 284 (280-300); Potassium 4.3 mEq/L (3.5-5.1); Sodium 133 mEq/L (136-145); eGFR For African Americans 17 (> 60); eGFR For Non-African Americans 14 (> 60)
[2021-01-25 22:39] LABS: Troponin I < 0.03 ng/mL (< 0.04)
[2021-01-25] MEDS ORDERED: 0.9 % Sodium Chloride 1,000 ML ONE (23:08)
[2021-01-25 23:20] LABS: Bacteria,Urine Few per hpf (None-Few); Bilirubin,Urine Negative (Negative); Blood,Urine Trace (Negative); Clarity,Urine Clear (Clear); Color,Urine Light-Yellow (Yellow); Glucose,Urine (UA) 100 mg/dL (Normal); Ketones,Urine Negative (Negative); Leukocyte Esterase,Urine Moderate (Negative); Mucus,Urine Few per lpf (None-Few); Nitrite,Urine Negative (Negative); Protein,Urine >=600 mg/dL (Neg-Trace); RBC,Urine 0-3 per hpf (0-3); Squamous Epithelial Cell,Urine Few per hpf (None-Few); Urobilinogen,Urine Normal (Normal)
[2021-01-26] MEDS ORDERED: Naloxone 0.4 MG/ML INJ IVP PRN (02:33)
[2021-01-26] MEDS ORDERED: Dextrose Gel 15 GM/37.5 ML TUBE PO PRN ×2 (02:35)
[2021-01-26] MEDS ORDERED: D5% in Water 1,000 ML IVC PRN (02:35)
[2021-01-26] MEDS ORDERED: *HR* Dextrose 50 % in Water (Vial) 50 ML VIAL IVP PRN (02:35)
[2021-01-26] MEDS ORDERED: Acetaminophen 325 MG TABLET PO PRN (04:25)
[2021-01-26 05:33] LABS: Potassium 3.9 mEq/L (3.5-5.1)
[2021-01-26 06:41] LABS: Hemoglobin 7.2 g/dL (11.5-15.4); Immature Granulocytes % 0.2 % (0-4)
[2021-01-26 06:43] LABS: Basophils # 0.1 K/mcL (0.0-0.2); Basophils % 1.5 %; Eosinophils # 0.2 K/mcL (0.0-0.6); Eosinophils % 3.5 %; Hematocrit 23.2 % (35.3-44.9); Immature Platelets 11.6 % (1.1-6.1); Lymphocytes # 1.8 K/mcL (0.6-4.6); Lymphocytes % 30.1 %; Mean Corpuscular Hemoglobin 27.6 pg (28.0-33.3); Mean Corpuscular Volume 88.9 fL (83.0-100.0); Mean Platelet Volume 11.8 fL (9.4-12.4); Monocytes # 0.9 K/mcL (0.0-1.3); Monocytes % 15.1 %; Platelet Count 137 K/mcL (140-400); Red Blood Count 2.61 M/mcL (3.82-4.97); Red Cell Distribution Width 15.3 % (11.5-14.5); Segmented Neutrophils % 49.6 %
[2021-01-26 07:01] LABS: Platelet Estimate Normal (Normal)
[2021-01-26] MEDS: Insulin LISPRO 300 UNITS/3 ML VIAL SUBQ SCH ×4 (08:11→22:02)
[2021-01-26] MEDS ORDERED: levETIRAcetam 250 MG TABLET PO SCH (08:39)
[2021-01-26] MEDS: Furosemide 40 MG TABLET PO SCH (17:22)
[2021-01-26] MEDS: levETIRAcetam 250 MG TABLET PO SCH (22:06)
[2021-01-26] MEDS ORDERED: Perflutren Lipid Microsphere 1.3 ML in 0.9 % Sodium Chloride 8.7 ML IVP PRN (22:31)
[2021-01-27 01:42] LABS: Basophils # 0.1 K/mcL (0.0-0.2); Basophils % 1.3 %; Eosinophils # 0.2 K/mcL (0.0-0.6); Eosinophils % 3.9 %; Hematocrit 22.8 % (35.3-44.9); Immature Granulocytes % 0.3 % (0-4); Lymphocytes # 1.3 K/mcL (0.6-4.6); Lymphocytes % 22.4 %; Mean Corpuscular HGB Conc 30.7 g/dL (31.6-35.5); Mean Corpuscular Hemoglobin 27.3 pg (28.0-33.3); Mean Corpuscular Volume 89.1 fL (83.0-100.0); Mean Platelet Volume 12.3 fL (9.4-12.4); Monocytes # 0.6 K/mcL (0.0-1.3); Monocytes % 9.4 %; Neutrophils # 3.7 K/mcL (1.6-8.9); Platelet Count 158 K/mcL (140-400); Red Blood Count 2.56 M/mcL (3.82-4.97); Red Cell Distribution Width 15.6 % (11.5-14.5); Segmented Neutrophils % 62.7 %
[2021-01-27 01:54] LABS: Calcium 8.3 mg/dL (8.6-10.3); Potassium 4.3 mEq/L (3.5-5.1)
[2021-01-27] MEDS: levETIRAcetam 250 MG TABLET PO SCH ×2 (05:48→16:30)
[2021-01-27] MEDS ORDERED: *HR* Heparin 10,000 UNIT/10 ML VIAL IV PRN (07:13)
[2021-01-27] MEDS ORDERED: 0.9 % Sodium Chloride 250 ML IVC PRN (07:13)
[2021-01-27] MEDS ORDERED: 0.9 % Sodium Chloride 1,000 ML PRIME SCH (07:15)
[2021-01-27] MEDS: Insulin LISPRO 300 UNITS/3 ML VIAL SUBQ SCH ×4 (08:14→22:22)
[2021-01-27] MEDS ORDERED: *HR* LORazepam 1 MG TABLET PO SCH (09:00)
[2021-01-27] MEDS: Famotidine 20 MG TABLET PO SCH (10:12)
[2021-01-27] MEDS: SODIUM ZIRCONIUM CYCLOSILICATE 5 GM POWD.PACK PO SCH (10:12)
[2021-01-27] MEDS: carvediloL 6.25 MG TABLET PO SCH ×2 (10:14→16:31)
[2021-01-27] MEDS: Calcium Acetate 667 MG CAPSULE PO SCH (10:14)
[2021-01-27] MEDS: Aspirin 81 MG TAB.CHEW PO SCH (10:14)
[2021-01-27] MEDS: NIFEdipine XL (24 HR) 60 MG TAB.ER.24 PO SCH (10:15)
[2021-01-27] MEDS: Renal Vitamin 1 CAP CAPSULE PO SCH (10:15)
[2021-01-28] MEDS: levETIRAcetam 250 MG TABLET PO SCH ×2 (06:12→17:09)
[2021-01-28 07:12] LABS: Basophils # 0.1 K/mcL (0.0-0.2); Basophils % 1.3 %; Eosinophils # 0.2 K/mcL (0.0-0.6); Eosinophils % 2.8 %; Hematocrit 26.4 % (35.3-44.9); Hemoglobin 7.9 g/dL (11.5-15.4); Immature Granulocytes % 0.1 % (0-4); Lymphocytes # 1.4 K/mcL (0.6-4.6); Lymphocytes % 20.8 %; Mean Corpuscular HGB Conc 29.9 g/dL (31.6-35.5); Mean Corpuscular Hemoglobin 27.5 pg (28.0-33.3); Monocytes # 0.8 K/mcL (0.0-1.3); Monocytes % 11.7 %; Neutrophils # 4.3 K/mcL (1.6-8.9); Platelet Count 209 K/mcL (140-400); Red Blood Count 2.87 M/mcL (3.82-4.97); Red Cell Distribution Width 15.7 % (11.5-14.5); Segmented Neutrophils % 63.3 %; White Blood Count 6.8 K/mcL (4.3-11.1)
[2021-01-28 07:24] LABS: Calcium 8.9 mg/dL (8.6-10.3); Potassium 4.3 mEq/L (3.5-5.1)
[2021-01-28 07:25] LABS: % Iron Saturation 16 % (15-50); Iron 38 mcg/dL (50-170); Transferrin 166 mg/dL (203-362)
[2021-01-28] MEDS: Insulin LISPRO 300 UNITS/3 ML VIAL SUBQ SCH ×4 (09:40→20:19)
[2021-01-28] MEDS: Renal Vitamin 1 CAP CAPSULE PO SCH (09:51)
[2021-01-28] MEDS: carvediloL 6.25 MG TABLET PO SCH ×2 (09:51→17:09)
[2021-01-28] MEDS: Famotidine 20 MG TABLET PO SCH (09:51)
[2021-01-28] MEDS: SODIUM ZIRCONIUM CYCLOSILICATE 5 GM POWD.PACK PO SCH (09:51)
[2021-01-28] MEDS: NIFEdipine XL (24 HR) 60 MG TAB.ER.24 PO SCH (09:51)
[2021-01-28] MEDS: Calcium Acetate 667 MG CAPSULE PO SCH (09:51)
[2021-01-28] MEDS: Aspirin 81 MG TAB.CHEW PO SCH (09:51)
[2021-01-28] MEDS: Furosemide 40 MG TABLET PO SCH (17:09)
[2021-01-28] MEDS ORDERED: Haloperidol Lactate 5 MG/ML VIAL IM ONE (20:02)
[2021-01-28] MEDS ORDERED: hydrALAZINE 10 MG TABLET PO ONE (21:44)
[2021-01-29 03:53] LABS: Basophils # 0.1 K/mcL (0.0-0.2); Basophils % 1.1 %; Eosinophils # 0.2 K/mcL (0.0-0.6); Eosinophils % 2.8 %; Hematocrit 25.4 % (35.3-44.9); Hemoglobin 7.8 g/dL (11.5-15.4); Immature Granulocytes % 0.4 % (0-4); Lymphocytes # 1.6 K/mcL (0.6-4.6); Lymphocytes % 20.1 %; Mean Corpuscular HGB Conc 30.7 g/dL (31.6-35.5); Mean Platelet Volume 11.4 fL (9.4-12.4); Monocytes # 0.8 K/mcL (0.0-1.3); Monocytes % 9.6 %; Neutrophils # 5.4 K/mcL (1.6-8.9); Platelet Count 204 K/mcL (140-400); Red Blood Count 2.79 M/mcL (3.82-4.97); Red Cell Distribution Width 15.9 % (11.5-14.5); White Blood Count 8.1 K/mcL (4.3-11.1)
[2021-01-29 04:10] LABS: Calcium 8.2 mg/dL (8.6-10.3); Potassium 4.9 mEq/L (3.5-5.1)
[2021-01-29] MEDS ORDERED: hydrALAZINE 10 MG TABLET PO ONE (04:26)
[2021-01-29] MEDS: levETIRAcetam 250 MG TABLET PO SCH (04:36)
[2021-01-29 06:41] VITALS: BP 184/86
[2021-01-29] MEDS ORDERED: hydrOXYzine pamoate 25 MG CAPSULE PO PRN (07:24)
[2021-01-29] MEDS: Insulin LISPRO 300 UNITS/3 ML VIAL SUBQ SCH (07:30)
[2021-01-29] MEDS: Calcium Acetate 667 MG CAPSULE PO SCH (08:19)
[2021-01-29] MEDS: Famotidine 20 MG TABLET PO SCH (08:19)
[2021-01-29] MEDS: carvediloL 6.25 MG TABLET PO SCH (08:19)
[2021-01-29] MEDS: Aspirin 81 MG TAB.CHEW PO SCH (08:19)
[2021-01-29] MEDS: SODIUM ZIRCONIUM CYCLOSILICATE 5 GM POWD.PACK PO SCH (08:20)
[2021-01-29] MEDS: NIFEdipine XL (24 HR) 60 MG TAB.ER.24 PO SCH (08:20)
[2021-01-29] MEDS: Renal Vitamin 1 CAP CAPSULE PO SCH (08:21)
[2021-01-29] MEDS ORDERED: Gabapentin 300 MG CAPSULE PO SCH (09:00)
[2021-01-29] MEDS ORDERED: traZODone 50 MG TABLET PO SCH (09:00)
[2021-01-29] MEDS ORDERED: Nitrofurantoin (BID) 100 MG CAPSULE PO SCH (09:02)
== END 2021-01-29 10:57 | DRG 64 ==
LOC: 3NENU 20:09 → EMEROOARM 20:09 → SUATTDRO 01-26 01:27 → 3NENU 01-26 03:21
PROVIDERS: ADMIT Internal Medicine; ATTEND Internal Medicine